=== PATIENT | female | born 1940 | race Caucasian/White ===

== ENCOUNTER 2016-10-12 14:10 | Emergency (ER) | payer MEDICARE, OTHER ==
[2016-10-12] MEDS ORDERED: MAGNESIUM CITRATE 296 ML BOTTLE PO ONE (15:21)
[2016-10-12] MEDS ORDERED: NA PHOS,M-B/NA PHOS,DI-BA 133 ML ENEMA RECTAL STA (15:21)
--- NOTE | 2016-10-12 15:24 | XR ---
EXAMINATION TYPE: XR abdomen complete w decub DATE OF EXAM: 10/12/2016 COMPARISON: NONE HISTORY: Constipation TECHNIQUE: Supine, upright, and left side down lateral decubitus views of the abdomen are obtained. FINDINGS: Bowel gas pattern is nonspecific with no evidence of obstruction and retained fecal debris throughout the colon. Scoliosis, diffuse osteopenia, degenerative change of the spine, postsurgical change involving the hi ps. Lung bases are clear. IMPRESSION: Nonspecific abdomen with retained fecal debris and no obstruction.
[2016-10-12 15:43] LABS: Amorphous Sediment,Urine Rare /hpf; Appearance,Urine Clear (Clear); Bacteria,Urine Rare /hpf; Bilirubin,Urine Negative (Negative); Glucose,Urine (UA) Negative (Negative); Ketones,Urine Negative (Negative); Leukocyte Esterase,Urine Negative (Negative); Nitrite,Urine Negative (Negative); PH, Urine 5.5 (5.0-8.0); Particle Count 445; Protein,Urine Negative (Negative); RBC,Urine 2 /hpf (0-5); Specific Gravity,Urine 1.007 (1.001-1.035); Squamous Epithelial Cell,Urine 1 /hpf (0-4); UA Billing (MACRO vs. MICRO) MICRO; Urobilinogen,Urine <2.0 mg/dL (<2.0); WBC,Urine 1 /hpf (0-5)
--- NOTE | 2016-10-12 16:35 | ED ---
General Adult HPI - General Chief complaint: Abdominal Pain Stated complaint: Poss Bowel Impaction Time Seen by Provider: 10/12/16 14:42 Source: patient, EMS, RN notes reviewed Mode of arrival: EMS Limitations: no limitations - History of Present Illness Initial comments: 76 female presents with a 5 day history of constipation. Patient states her last normal bowel movement was on Sunday. She has had to self disimpact since then with minimal stool output. She denies any nausea or vomiting. Denies abdominal pain. Denies fever. Patient has history of osteoarthritis and takes for 10 mg [place] as daily. - Related Data Home Medications Medication Instructions Recorded Confirmed Lisinopril 40 mg PO DAILY 09/19/14 10/12/16 RABEprazole SODIUM 20 mg PO BID 02/04/15 10/12/16 Aspirin 1,300 mg PO QID PRN 07/12/15 10/12/16 Clindamycin HCl 300 mg PO TID 10/12/16 10/12/16 Loxapine [Loxitane] 10 mg PO HS 10/12/16 10/12/16 Lubiprostone [Amitiza] 24 mcg PO HS 10/12/16 10/12/16 Previous Rx's Medication Instructions Recorded Hydrocodone/Acetaminophen [[place] 1 tab PO Q6H PRN #20 tablet 09/25/14 10-325] Docusate [Colace] 100 mg PO BID #60 capsule 10/12/16 Polyethylene Glycol 3350 [Miralax] 17 gm PO DAILY #1 bottle 10/12/16 Allergies Allergy/AdvReac Type Severity Reaction Status Date / Time sulfamethoxazole Allergy Rash/Hives Verified 10/12/16 14:38 [From Bactrim] trimethoprim [From Bactrim] Allergy Rash/Hives Verified 10/12/16 14:38 prednisone AdvReac Nausea & Verified 10/12/16 14:38 Vomiting & Diarrhea Review of Systems ROS Statement: Those systems with pertinent positive or pertinent negative responses have been documented in the HPI. ROS Other: All systems not noted in ROS Statement are negative. Cardiovascular: Denies: chest pain, palpitations Gastrointestinal: Reports: constipation. Denies: abdominal pain, nausea, vomiting Past Medical History Past Medical History: Hypertension, Osteoarthritis (OA) Additional Past Medical History / Comment(s): Diverticulosis ,chronic back pain , bipolar schizophrenia History of Any Multi-Drug Resistant Organisms: None Reported Past Surgical History: Appendectomy, Cholecystectomy, Ear Surgery, Hernia Repair Additional Past Surgical History / Comment(s): mastiodectomy pt is now deaf and needs bilat hearing aids. Past Anesthesia/Blood Transfusion Reactions: No Reported Reaction Past Psychological History: Bipolar, Schizophrenia Smoking Status: Never smoker Past Alcohol Use History: None Reported Past Drug Use History: None Reported - Past Family History Mother Family Medical History: No Reported History Father Family Medical History: Hypertension, Thyroid Disorder General Exam Limitations: no limitations General appearance: alert, in no apparent distress Head exam: Present: atraumatic, normocephalic Eye exam: Present: normal appearance, PERRL ENT exam: Present: normal exam, mucous membranes moist Neck exam: Present: normal inspection. Absent: full ROM Respiratory exam: Present: normal lung sounds bilaterally. Absent: respiratory distress Cardiovascular Exam: Present: regular rate, normal rhythm GI/Abdominal exam: Present: soft, distended. Absent: tenderness, guarding, rebound, rigid Neurological exam: Present: alert, oriented X3 Psychiatric exam: Present: normal affect, normal mood Skin exam: Present: warm, dry Course Vital Signs 10/12/16 10/12/16 14:15 17:01 Temperature 98.3 F 97.3 F L Pulse Rate 75 108 H Respiratory 16 18 Rate Blood Pressure 180/75 185/76 O2 Sat by Pulse 98 98 Oximetry - Reevaluation(s) Reevaluation #1: 10/12/16 23:28 Patient is reevaluated prior to discharge, she was feeling better, she had a large bowel movement while in the emergency department. Medical Decision Making - Medical Decision Making 76-year-old female presenting with 5 days of constipation. X-ray reveals large amount of stool throughout the colon. Urinalysis is negative for signs of infection. Patient is given an enema and magnesium citrate while in the emergency department. She has a large bowel movement and is feeling much better. Her abdomen is soft nontender. Patient is given a prescription for Colace and MiraLAX. She'll follow-up with her primary care physician. - Lab Data Lab Results 10/12/16 Range/Units 15:30 Urine Color Light Yellow Urine Appearance Clear (Clear) Urine pH 5.5 (5.0-8.0) Ur Specific [place] 1.007 (1.001-1.035) Urine Protein Negative (Negative) Urine Glucose (UA) Negative (Negative) Urine Ketones Negative (Negative) Urine Blood Trace H (Negative) Urine Nitrite Negative (Negative) Urine Bilirubin Negative (Negative) Urine Urobilinogen <2.0 (<2.0) mg/dL Ur Leukocyte Esterase Negative (Negative) Urine RBC 2 (0-5) /hpf Urine WBC 1 (0-5) /hpf Ur Squamous Epith Cells 1 (0-4) /hpf Amorphous Sediment Rare H (None) /hpf Urine Bacteria Rare H (None) /hpf Disposition Clinical Impression: Constipation Disposition: HOME SELF-CARE Condition: Good Instructions: Constipation (ED) Prescriptions: Docusate [Colace] 100 mg PO BID #60 capsule Polyethylene Glycol 3350 [Miralax] 17 gm PO DAILY #1 bottle Referrals: Chloé Santillan DO [Primary Care Provider] - 1-2 days
[2016-10-12 17:03] VITALS: BP 185/76; PULSE 108; RESP 18; TEMP 97.3
[2016-10-12] MEDS ORDERED: LISINOPRIL 10 MG TAB PO STA (17:06)
== END 2016-10-12 17:49 | disposition home or self-care (01) ==
LOC: EC 14:10
DX: K59.00 Constipation, unspecified (principal); M19.90 Unspecified osteoarthritis, unspecified site; I10 Essential (primary) hypertension; F20.9 Schizophrenia, unspecified; Z79.891 Long term (current) use of opiate analgesic; Z87.19 Personal history of other diseases of the digestive system; Z90.49 Acquired absence of other specified parts of digestive tract; Z98.890 Other specified postprocedural states; Z88.2 Allergy status to sulfonamides; Z88.8 Allergy status to other drugs, medicaments and biological substances; Z79.899 Other long term (current) drug therapy
CPT/HCPCS: 74020; 81001; 99284

== ENCOUNTER → 2017-11-28 | Outpatient (CLI) | payer MEDICARE, OTHER ==
--- NOTE | 2017-11-28 17:00 | MR ---
EXAMINATION TYPE: MR shoulder LT wo con DATE OF EXAM: 11/28/2017 COMPARISON: Plain film 04/29/2015 HISTORY: Left shoulder pain, Primary OA TECHNIQUE: Multiplanar, multisequence imaging of the left shoulder is performed without contrast. FINDINGS: Rotator Cuff: Partial thickness tear is present at the rotator cuff, supraspinatus tendon shows abnor mal increased signal and is attenuated, infraspinatus tendon thought to be intact. Acromioclavicular Joint: Hypertrophic changes are present causing some mass effect on the musculotend inous junction of supraspinatus. Fluid signal is present in the subacromial subdeltoid bursa. Glenohumeral Joint: There is marginal spurring present, subchondral geode formation present at the hu meral head and bony glenoid. Joint space loss is present with subchondral sclerosis. Labrum: The glenoid labrum is not well appreciated, there is remodeling of the bony labrum, abnormal signal is present, there may be chronic labral tear. Biceps Tendon: Fluid signal is present along the long head of biceps tendon. Shows a normal position in the bicipital groove. Bone marrow signal: Reactive marrow signal change present within the humeral head and bony labrum. Other: There is a joint effusion. Marked remodeling of the glenohumeral joint, humeral head. There ar e loose bodies present within the joint effusion. IMPRESSION: Significant osteoarthritis is present with additional findings above.
== END | disposition home or self-care (01) ==
LOC: RADMRIMAIN 14:33
PROVIDERS: ATTEND Family Medicine
DX: M19.012 Primary osteoarthritis, left shoulder (principal); M75.112 Incomplete rotator cuff tear or rupture of left shoulder, not specified as traumatic

== ENCOUNTER 2018-02-18 12:24 | Inpatient (IN) | payer MEDICARE, OTHER ==
[2018-02-18] MEDS ORDERED: SODIUM CHLORIDE 0.9% 1,000 ML IV STA (12:53)
--- NOTE | 2018-02-18 12:58 | ED ---
General Adult HPI - General Stated complaint: nausea, vomiting Time Seen by Provider: 02/18/18 12:25 Source: RN notes reviewed - History of Present Illness Initial comments: This is a 77-year-old female who comes in complaining of abdominal pain since Sunday. Patient states she's vomited intermittently over the weekend has had diarrhea as well intermittently over the weekend. Patient states the pain is centrally located. Patient denies any chest pain difficulty breathing first breath. Patient states she has had her gallbladder out and appendix out in the past. Patient states she is chronically on morphine. Patient states she just had her morphine felt today. Patient states her caregivers taken the morphine out of the pill bottle that sweater is nontender currently. Patient denies any suicidal homicidal ideations. Patient denies any recent fever chills or cough. Patient denies any lightheadedness dizziness or nursing blood cell. - Related Data Home Medications Medication Instructions Recorded Confirmed Lisinopril 40 mg PO DAILY 09/19/14 02/18/18 RABEprazole SODIUM 20 mg PO BID 02/04/15 02/18/18 Gabapentin [Neurontin] 300 mg PO QID 02/18/18 02/18/18 Morphine Sulfate ER [Ms Contin] 30 mg PO Q12H 02/18/18 02/18/18 Allergies Allergy/AdvReac Type Severity Reaction Status Date / Time sulfamethoxazole Allergy Rash/Hives Verified 02/18/18 13:14 [From Bactrim] trimethoprim [From Bactrim] Allergy Rash/Hives Verified 02/18/18 13:14 prednisone AdvReac Nausea & Verified 02/18/18 13:14 Vomiting & Diarrhea Review of Systems ROS Statement: Those systems with pertinent positive or pertinent negative responses have been documented in the HPI. ROS Other: All systems not noted in ROS Statement are negative. Past Medical History Past Medical History: Hypertension, Osteoarthritis (OA) Additional Past Medical History / Comment(s): Diverticulosis ,chronic back pain , bipolar schizophrenia History of Any Multi-Drug Resistant Organisms: None Reported Past Surgical History: Appendectomy, Cholecystectomy, Ear Surgery, Hernia Repair Additional Past Surgical History / Comment(s): mastiodectomy pt is now deaf and needs bilat hearing aids. Past Anesthesia/Blood Transfusion Reactions: No Reported Reaction Past Psychological History: Bipolar, Schizophrenia Smoking Status: Never smoker Past Alcohol Use History: None Reported Past Drug Use History: None Reported - Past Family History Mother Family Medical History: No Reported History Father Family Medical History: Hypertension, Thyroid Disorder General Exam - General Exam Comments Initial Comments: GENERAL: Patient is well-developed and well-nourished. Patient is nontoxic and well- hydrated and is in mild distress. ENT: Neck is soft and supple. No significant lymphadenopathy is noted. Oropharynx is clear. Moist mucous membranes. Neck has full range of motion without eliciting any pain. EYES: The sclera were anicteric and conjunctiva were pink and moist. Extraocular movements were intact and pupils were equal round and reactive to light. Eyelids were unremarkable. PULMONARY: Unlabored respirations. Good breath sounds bilaterally. No audible rales rhonchi or wheezing was noted. CARDIOVASCULAR: There is a regular rate and rhythm without any murmurs gallops or rubs. ABDOMEN: Diffusely tender mildly distended but no point tenderness or rebound tenderness. No palpable organomegaly was noted. There is no palpable pulsatile mass. SKIN: Skin is clear with no lesions or rashes and otherwise unremarkable. NEUROLOGIC: Patient is alert and oriented x3. Cranial nerves II through XII are grossly intact. Motor and sensory are also intact. Normal speech, volume and content. Symmetrical smile. MUSCULOSKELETAL: Normal extremities with adequate strength and full range of motion. No lower extremity swelling or edema. No calf tenderness. LYMPHATICS: No significant lymphadenopathy is noted PSYCHIATRIC: Normal psychiatric evaluation. Course Vital Signs 02/18/18 02/18/18 13:11 15:26 Temperature 101.1 F H 99.3 F Pulse Rate 98 88 Respiratory 18 18 Rate Blood Pressure 191/76 O2 Sat by Pulse 97 Oximetry Medical Decision Making - Medical Decision Making CT of the abdomen denies no acute abnormality. Patient still complaining of abdominal pain and nausea. Patient is very anxious. Patient did have a fever on arrival. I spoke with Dr. Sparks he agreed to admit the patient admitted the patient wrote admitting orders. - Lab Data Result diagrams: 02/18/18 13:25 02/18/18 13:25 Lab Results 02/18/18 02/18/18 02/18/18 Range/Units 13:25 13:25 13:25 WBC 11.2 H (3.8-10.6) k/uL RBC 4.60 (3.80-5.40) m/uL Hgb 12.6 (11.4-16.0) gm/dL Hct 38.6 (34.0-46.0) % MCV 83.8 (80.0-100.0) fL MCH 27.4 (25.0-35.0) pg MCHC 32.7 (31.0-37.0) g/dL RDW 14.8 (11.5-15.5) % Plt Count 428 (150-450) k/uL Neutrophils % 82 % Lymphocytes % 11 % Monocytes % 5 % Eosinophils % 0 % Basophils % 0 % Neutrophils # 9.2 H (1.3-7.7) k/uL Lymphocytes # 1.3 (1.0-4.8) k/uL Monocytes # 0.5 (0-1.0) k/uL Eosinophils # 0.0 (0-0.7) k/uL Basophils # 0.0 (0-0.2) k/uL Sodium 126 L (137-145) mmol/L Potassium 4.4 (3.5-5.1) mmol/L Chloride 93 L (98-107) mmol/L Carbon Dioxide 22 (22-30) mmol/L Anion Gap 11 mmol/L BUN 5 L (7-17) mg/dL Creatinine 0.58 (0.52-1.04) mg/dL Est GFR (CKD-EPI)AfAm >90 (>60 ml/min/1.73 sqM) Est GFR (CKD-EPI)NonAf 88 (>60 ml/min/1.73 sqM) Glucose 119 H (74-99) mg/dL Plasma Lactic Acid El 1.2 (0.7-2.0) mmol/L Calcium 9.7 (8.4-10.2) mg/dL Total Bilirubin 0.5 (0.2-1.3) mg/dL AST 24 (14-36) U/L ALT 33 (9-52) U/L Alkaline Phosphatase 108 (38-126) U/L Total Protein 6.7 (6.3-8.2) g/dL Albumin 4.0 (3.5-5.0) g/dL Amylase 33 (30-110) U/L Lipase 131 (23-300) U/L Urine Color Urine Appearance (Clear) Urine pH (5.0-8.0) Ur Specific [place] (1.001-1.035) Urine Protein (Negative) Urine Glucose (UA) (Negative) Urine Ketones (Negative) Urine Blood (Negative) Urine Nitrite (Negative) Urine Bilirubin (Negative) Urine Urobilinogen (<2.0) mg/dL Ur Leukocyte Esterase (Negative) Urine RBC (0-5) /hpf 02/18/18 Range/Units 14:00 WBC (3.8-10.6) k/uL RBC (3.80-5.40) m/uL Hgb (11.4-16.0) gm/dL Hct (34.0-46.0) % MCV (80.0-100.0) fL MCH (25.0-35.0) pg MCHC (31.0-37.0) g/dL RDW (11.5-15.5) % Plt Count (150-450) k/uL Neutrophils % % Lymphocytes % % Monocytes % % Eosinophils % % Basophils % % Neutrophils # (1.3-7.7) k/uL Lymphocytes # (1.0-4.8) k/uL Monocytes # (0-1.0) k/uL Eosinophils # (0-0.7) k/uL Basophils # (0-0.2) k/uL Sodium (137-145) mmol/L Potassium (3.5-5.1) mmol/L Chloride (98-107) mmol/L Carbon Dioxide (22-30) mmol/L Anion Gap mmol/L BUN (7-17) mg/dL Creatinine (0.52-1.04) mg/dL Est GFR (CKD-EPI)AfAm (>60 ml/min/1.73 sqM) Est GFR (CKD-EPI)NonAf (>60 ml/min/1.73 sqM) Glucose (74-99) mg/dL Plasma Lactic Acid El (0.7-2.0) mmol/L Calcium (8.4-10.2) mg/dL Total Bilirubin (0.2-1.3) mg/dL AST (14-36) U/L ALT (9-52) U/L Alkaline Phosphatase (38-126) U/L Total Protein (6.3-8.2) g/dL Albumin (3.5-5.0) g/dL Amylase (30-110) U/L Lipase (23-300) U/L Urine Color Colorless Urine Appearance Clear (Clear) Urine pH 6.5 (5.0-8.0) Ur Specific [place] 1.002 (1.001-1.035) Urine Protein Negative (Negative) Urine Glucose (UA) Negative (Negative) Urine Ketones Trace H (Negative) Urine Blood Trace H (Negative) Urine Nitrite Negative (Negative) Urine Bilirubin Negative (Negative) Urine Urobilinogen <2.0 (<2.0) mg/dL Ur Leukocyte Esterase Negative (Negative) Urine RBC 1 (0-5) /hpf Disposition Clinical Impression: Gastroenteritis, Hyponatremia Disposition: ADMITTED IP TO THIS HOSP Referrals: Chloé Santillan DO [Primary Care Provider] - 1-2 days Time of Disposition: 16:15
[2018-02-18] MEDS ORDERED: ACETAMINOPHEN IV (For NPO) 1,000 MG in EMPTY BAG 1 BAG IVPB ONE (13:16)
[2018-02-18] MEDS ORDERED: IBUPROFEN IV 600 MG in SODIUM CHLORIDE 0.9% 250 ML IV STA (13:16)
[2018-02-18] MEDS ORDERED: ONDANSETRON 4 MG/2 ML VIAL IVP STA (13:16)
[2018-02-18 13:59] LABS: Basophils % (A) 0 %; Eosinophils % (A) 0 %; HCT 38.6 % (34.0-46.0); HGB 12.6 gm/dL (11.4-16.0); Lymphocytes # (A) 1.3 k/uL (1.0-4.8); Lymphocytes % (A) 11 %; MCH 27.4 pg (25.0-35.0); MCHC 32.7 g/dL (31.0-37.0); MCV 83.8 fL (80.0-100.0); Mean Platelet Volume 6.2; Monocytes # (A) 0.5 k/uL (0-1.0); Monocytes % (A) 5 %; Neutrophils # (A) 9.2 k/uL (1.3-7.7); Neutrophils % (A) 82 %; Platelet Count 428 k/uL (150-450); RDW 14.8 % (11.5-15.5); WBC 11.2 k/uL (3.8-10.6)
[2018-02-18 14:08] LABS: ALT 33 U/L (9-52); AST 24 U/L (14-36); Alkaline Phosphatase 108 U/L (38-126); Amylase 33 U/L (30-110); Anion Gap 11 mmol/L; Blood Urea Nitrogen 5 mg/dL (7-17); Calcium 9.7 mg/dL (8.4-10.2); Carbon Dioxide 22 mmol/L (22-30); Chloride 93 mmol/L (98-107); Glucose 119 mg/dL (74-99); Lipase 131 U/L (23-300); Potassium 4.4 mmol/L (3.5-5.1); Sodium 126 mmol/L (137-145); Total Bilirubin 0.5 mg/dL (0.2-1.3); Total Protein 6.7 g/dL (6.3-8.2)
[2018-02-18 14:31] LABS: Appearance,Urine Clear (Clear); Bilirubin,Urine Negative (Negative); Blood,Urine Trace (Negative); Color,Urine Colorless; Glucose,Urine (UA) Negative (Negative); Ketones,Urine Trace (Negative); Leukocyte Esterase,Urine Negative (Negative); Nitrite,Urine Negative (Negative); PH, Urine 6.5 (5.0-8.0); Protein,Urine Negative (Negative); RBC,Urine 1 /hpf (0-5); Specific Gravity,Urine 1.002 (1.001-1.035); Urobilinogen,Urine <2.0 mg/dL (<2.0)
--- NOTE | 2018-02-18 15:27 | CT ---
EXAMINATION TYPE: CT abdomen pelvis wo con DATE OF EXAM: 02/18/2018 COMPARISON: 09/18/2014 HISTORY: Pain Examination of the solid and hollow viscera is limited given the lack of contrast. FINDINGS: LUNG BASES: No evidence for nodule. No evidence for infiltrate. LIVER/GB: The gallbladder is unremarkable. No space-occupying hepatic lesion. PANCREAS: No pancreatic mass identified. No inflammatory process seen. SPLEEN: No evidence for splenomegaly. No intrasplenic lesions seen. ADRENALS: No adrenal nodules identified. No evidence for thickening. KIDNEYS: No evidence for renal mass. No nephrolithiasis. No hydronephrosis. BOWEL: Fixed hiatal hernia is redemonstrated. Appendix has a normal appearance. No evidence of bowel obstruction. No inflammatory process. Lymph nodes: No evidence for adenopathy greater than 1 cm. Abdominal aorta: Atheromatous changes seen. No evidence for aneurysm. Genital organs: No significant abnormality. Other: Fat-containing umbilical hernia. Bilateral hip prostheses with streak artifact within the pelv is. Severe degenerative change lumbar spine. IMPRESSION: 1. No acute process identified to account for the patient's symptoms.
[2018-02-18] MEDS ORDERED: SODIUM CHLORIDE 0.9% 1,000 ML IV ONE (16:15)
[2018-02-18] MEDS ORDERED: ONDANSETRON 4 MG/2 ML VIAL IVP PRN (16:16)
[2018-02-18] MEDS ORDERED: LORazepam 2 MG/ML INJ IV STA (16:16)
[2018-02-18] MEDS ORDERED: ACETAMINOPHEN TAB 325 MG TAB PO PRN (18:42)
[2018-02-18] MEDS ORDERED: MORPHINE SULFATE ER 30 MG TABLET PO SCH (19:00)
[2018-02-18] MEDS: GABAPENTIN 300 MG CAP PO SCH (20:30)
[2018-02-18] MEDS: PANTOPRAZOLE 40 MG TABLET PO SCH (20:30)
--- NOTE | 2018-02-18 21:39 | HP ---
HISTORY AND PHYSICAL CHIEF COMPLAINT: Nausea, vomiting, abdominal pain. HISTORY OF PRESENT ILLNESS: This 77-year-old woman with a past medical history of hypertension, DJD, history of diverticulosis, was complaining of significant abdominal pain since Sunday. The patient also has nausea and vomiting also. The patient had some hyponatremia and the patient admitted for further evaluation and treatment. There is no history of fever, rigors or chills. No history of headache, loss of consciousness, seizures. The patient follows with Dr. Santillan in the outpatient setting. PAST MEDICAL HISTORY: Hypertension, DJD, history of diverticulosis, appendectomy, cholecystectomy. MEDICATIONS ARE: 1. Morphine sulfate 30 mg p.o. b.i.d. 2. Neurontin 300 mg q.i.d. 4. Lisinopril 40 mg daily. ALLERGIES: BACTRIM. PREDNISONE. FAMILY HISTORY: No history of heart disease or strokes in the family. SOCIAL HISTORY: No history of smoking. No alcohol intake. REVIEW OF SYSTEMS: ENT: Diminished vision. Diminished hearing. CARDIOVASCULAR: No angina or palpitations. RESPIRATORY: No cough, hemoptysis. GI as mentioned earlier. : No dysuria. NERVOUS SYSTEM: No numbness or weakness. ALLERGY/IMMUNOLOGY: No asthma or hayfever. MUSCULOSKELETAL: As mentioned earlier. HEMATOLOGY/ONCOLOGY: No history of anemia. ENDOCRINE: No history of diabetes or hypothyroidism. CONSTITUTIONAL: As mentioned earlier. Dermatology: Negative. Rheumatology: Negative. Psychiatry: As mentioned earlier. PHYSICAL EXAMINATION: Alert and oriented x3. The pulse is 82, blood pressure 140/88, respiration 18, temperature 98.4, pulse ox 93% on room air. HEENT: Oral mucosa moist. NECK is no jugular venous distention. No carotid bruit. No lymph node enlargement. CARDIOVASCULAR: S1, S2 muffled. Respirations: Breath sounds diminished in the bases. A few scattered rhonchi. No crackles. ABDOMEN: Soft nontender, obese, nontender. No mass palpable. No guarding. No rigidity. Legs no edema, no swelling. NERVOUS SYSTEM: Higher functions as mentioned earlier. Moves all four extremities. No focal deficits. Lymphatics: No lymph nodes palpable in the neck, axillae or groin. SKIN: No ulcer, rash or bleeding. LABS: WBC 11.8, Hemoglobin 12.6, sodium 126. UA unremarkable. ASSESSMENT: 1. Intractable nausea and vomiting for possible acute gastritis. 2. Hyponatremia. 3. History of degenerative joint disease. 4. Hypertension. 5. Chronic pain syndrome. 6. Bipolar schizophrenia. 7. History of cholecystectomy. RECOMMENDATIONS AND DISCUSSION: Recommend to continue current medications, management and symptomatic treatment. Otherwise, at this time, I would resume the home medications. We will cut down the dose of morphine. Guarded prognosis. Further recommendations to follow. SONAL / NELYN: [id number] / MTDD
[2018-02-19] MEDS: GABAPENTIN 300 MG CAP PO SCH ×2 (08:00→12:15)
[2018-02-19] MEDS: PANTOPRAZOLE 40 MG TABLET PO SCH (08:00)
[2018-02-19] MEDS ORDERED: MORPHINE SULFATE ER 30 MG TABLET PO SCH (09:00)
[2018-02-19] MEDS ORDERED: LISINOPRIL 20 MG TAB PO SCH (09:00)
[2018-02-19 10:32] LABS: Basophils # (A) 0.1 k/uL (0-0.2); Basophils % (A) 1 %; Eosinophils # (A) 0.2 k/uL (0-0.7); Eosinophils % (A) 2 %; HCT 36.4 % (34.0-46.0); HGB 11.3 gm/dL (11.4-16.0); Lymphocytes # (A) 1.5 k/uL (1.0-4.8); Lymphocytes % (A) 18 %; MCH 26.9 pg (25.0-35.0); MCV 86.8 fL (80.0-100.0); Mean Platelet Volume 6.2; Monocytes # (A) 0.7 k/uL (0-1.0); Monocytes % (A) 8 %; Neutrophils # (A) 5.7 k/uL (1.3-7.7); Neutrophils % (A) 70 %; Platelet Count 366 k/uL (150-450); RBC 4.19 m/uL (3.80-5.40); WBC 8.1 k/uL (3.8-10.6)
[2018-02-19 10:53] LABS: ALT 22 U/L (9-52); AST 25 U/L (14-36); Albumin 3.5 g/dL (3.5-5.0); Alkaline Phosphatase 80 U/L (38-126); Anion Gap 11 mmol/L; Blood Urea Nitrogen 6 mg/dL (7-17); Calcium 9.1 mg/dL (8.4-10.2); Carbon Dioxide 21 mmol/L (22-30); Chloride 103 mmol/L (98-107); Glucose 124 mg/dL (74-99); Potassium 3.8 mmol/L (3.5-5.1); Sodium 135 mmol/L (137-145); Total Bilirubin 0.3 mg/dL (0.2-1.3); Total Protein 6.1 g/dL (6.3-8.2)
[2018-02-19 15:59] VITALS: BP 143/64; PULSE 78; RESP 16; TEMP 98.1
--- NOTE | 2018-02-20 07:17 | DS ---
DISCHARGE SUMMARY DATE OF SERVICE: 02/19/2018 FINAL DIAGNOSES: 1. Intractable nausea, vomiting, possible acute gastritis. 2. Hyponatremia, hypovolemic, improved. 3. History of degenerative joint disease. 4. Hypertension. 5. Chronic pain syndrome. 6. Bipolar, schizophrenia. 7. History of cholecystectomy. DISCHARGE DISPOSITION: The patient discharged in a stable condition with guarded prognosis. HISTORY OF PRESENT ILLNESS: This is a 77-year-old woman with a past medical history of multiple medical problems admitted with nausea, vomiting and features of gastritis, treated symptomatically, improved significantly. Sodium improved from 126 to 135. Patient is keen on going home. The patient will be discharged in a stable condition and guarded prognosis. Diet is cardiac diet. Activity limited until followup. Follow up with Dr. Santillan in 2 to 3 days with CBC, BMP. The medications are: 1. Neurontin 300 mg p.o. q.i.d. 2. Lisinopril 40 mg daily. 3. MS Contin 30 mg p.o. b.i.d. 4. Protonix 40 mg p.o. b.i.d. Once again, the patient will be discharged in a stable condition with guarded prognosis. MMODL / IJN: [id number] /
== END 2018-02-19 15:41 | disposition home or self-care (01) | DRG 392 ==
LOC: EC 12:24 → 4MS4W 16:15
PROVIDERS: ADMIT Hospitalist; ATTEND Hospitalist
DX: K52.9 Noninfective gastroenteritis and colitis, unspecified (principal); E87.1 Hypo-osmolality and hyponatremia; I10 Essential (primary) hypertension; M19.90 Unspecified osteoarthritis, unspecified site; F25.0 Schizoaffective disorder, bipolar type; G89.4 Chronic pain syndrome; Z90.49 Acquired absence of other specified parts of digestive tract; Z79.899 Other long term (current) drug therapy; Z88.2 Allergy status to sulfonamides; Z88.8 Allergy status to other drugs, medicaments and biological substances; Z82.49 Family history of ischemic heart disease and other diseases of the circulatory system
CPT/HCPCS: 36415; 51702; 74176; 80053; 81001; 82150; 83605; 83690; 85025; 87040; 96361; 96365; 96366; 96367; 96375; 99285

== ENCOUNTER 2018-02-25 11:34 | Inpatient (IN) | payer MEDICARE, OTHER ==
[2018-02-25] MEDS ORDERED: IBUPROFEN IV 800 MG in SODIUM CHLORIDE 0.9% 250 ML IV ONE (11:46)
[2018-02-25] MEDS ORDERED: SODIUM CHLORIDE 0.9% 500 ML 500 ML IV STA (11:46)
[2018-02-25] MEDS ORDERED: SODIUM CHLORIDE 0.9% 1,000 ML IV STA ×2 (11:46)
[2018-02-25] MEDS ORDERED: ONDANSETRON 4 MG/2 ML VIAL IVP STA (11:46)
[2018-02-25] MEDS ORDERED: ACETAMINOPHEN IV (For NPO) 1,000 MG in EMPTY BAG 1 BAG IVPB STA (11:46)
[2018-02-25 12:22] LABS: Basophils # (A) 0.1 k/uL (0-0.2); Basophils % (A) 0 %; Eosinophils # (A) 0.2 k/uL (0-0.7); Eosinophils % (A) 1 %; HCT 36.6 % (34.0-46.0); HGB 11.9 gm/dL (11.4-16.0); Lymphocytes # (A) 0.5 k/uL (1.0-4.8); Lymphocytes % (A) 2 %; MCH 27.7 pg (25.0-35.0); MCHC 32.4 g/dL (31.0-37.0); MCV 85.6 fL (80.0-100.0); Mean Platelet Volume 6.5; Monocytes # (A) 1.3 k/uL (0-1.0); Monocytes % (A) 5 %; Neutrophils # (A) 24.2 k/uL (1.3-7.7); Neutrophils % (A) 91 %; Platelet Count 380 k/uL (150-450); RBC 4.28 m/uL (3.80-5.40); RDW 14.8 % (11.5-15.5); WBC 26.5 k/uL (3.8-10.6)
[2018-02-25 12:32] LABS: INR 1.1 (<1.2); Partial Thromboplastin Time 27.5 sec (22.0-30.0); Prothrombin Time 10.4 sec (9.0-12.0)
[2018-02-25 12:37] LABS: ALT 27 U/L (9-52); AST 33 U/L (14-36); Albumin 3.5 g/dL (3.5-5.0); Alkaline Phosphatase 103 U/L (38-126); Anion Gap 13 mmol/L; Blood Urea Nitrogen 8 mg/dL (7-17); Calcium 8.7 mg/dL (8.4-10.2); Carbon Dioxide 22 mmol/L (22-30); Chloride 94 mmol/L (98-107); Glucose 158 mg/dL (74-99); Magnesium 1.4 mg/dL (1.6-2.3); Phosphorus 3.3 mg/dL (2.5-4.5); Potassium 3.6 mmol/L (3.5-5.1); Sodium 129 mmol/L (137-145); Total Bilirubin 1.1 mg/dL (0.2-1.3); Total Protein 6.2 g/dL (6.3-8.2)
[2018-02-25 12:39] LABS: Creatine Kinase 27 U/L (30-135)
--- NOTE | 2018-02-25 12:45 | ED ---
Nausea/Vomiting/Diarrhea HPI - General Chief complaint: Nausea/Vomiting/Diarrhea Stated complaint: Nausea, Vomiting Time Seen by Provider: 02/25/18 11:44 Source: patient, EMS, RN notes reviewed, old records reviewed Mode of arrival: EMS Limitations: no limitations - History of Present Illness Initial comments: This is a 77-year-old female the ER for evaluation of not feeling well, weak, increased nausea vomiting with diarrhea. Patient states she had recent hospital admission for gastroenteritis, patient's physical time her C. diff was negative, patient's brought in by EMS today for recurrent symptoms patient does feel like she occasionally has been getting chills, occasionally sweaty. No chest pain or shortness of breath MD complaint: nausea, vomiting, diarrhea -: days(s) Description of Vomiting: food contents Description of Diarrhea: water Associated Abdominal Pain: Yes Location: diffuse Radiation: none Severity: mild Severity scale (1-10): 2 Quality: cramping Consistency: constant Improves with: none Worsens with: eating Context: sick contacts Associated Symptoms: myalgias, loss of appetite, malaise, nausea/vomiting, weakness - Related Data Home Medications Medication Instructions Recorded Confirmed Lisinopril 40 mg PO DAILY 09/19/14 02/25/18 Gabapentin [Neurontin] 300 mg PO QID 02/18/18 02/25/18 Morphine Sulfate ER [Ms Contin] 30 mg PO Q12H 02/18/18 02/25/18 Previous Rx's Medication Instructions Recorded Pantoprazole Sodium [Protonix] 40 mg PO BID #60 tablet. 02/19/18 Allergies Allergy/AdvReac Type Severity Reaction Status Date / Time sulfamethoxazole Allergy Rash/Hives Verified 02/25/18 12:05 [From Bactrim] trimethoprim [From Bactrim] Allergy Rash/Hives Verified 02/25/18 12:05 prednisone AdvReac Nausea & Verified 02/25/18 12:05 Vomiting & Diarrhea Review of Systems ROS Statement: Those systems with pertinent positive or pertinent negative responses have been documented in the HPI. ROS Other: All systems not noted in ROS Statement are negative. Past Medical History Past Medical History: Hypertension, Osteoarthritis (OA) Additional Past Medical History / Comment(s): Diverticulosis ,chronic back pain , bipolar schizophrenia History of Any Multi-Drug Resistant Organisms: None Reported Past Surgical History: Appendectomy, Cholecystectomy, Ear Surgery, Hernia Repair Additional Past Surgical History / Comment(s): mastiodectomy pt is now deaf and needs bilat hearing aids. Past Anesthesia/Blood Transfusion Reactions: No Reported Reaction Past Psychological History: Bipolar, Schizophrenia Smoking Status: Never smoker Past Alcohol Use History: None Reported Past Drug Use History: None Reported - Past Family History Mother Family Medical History: No Reported History Father Family Medical History: Hypertension, Thyroid Disorder General Exam Limitations: no limitations General appearance: alert, in no apparent distress Head exam: Present: atraumatic, normocephalic, normal inspection Eye exam: Present: normal appearance, PERRL, EOMI. Absent: scleral icterus, conjunctival injection, periorbital swelling ENT exam: Present: normal exam, mucous membranes dry Neck exam: Present: normal inspection. Absent: tenderness, meningismus, lymphadenopathy Respiratory exam: Present: normal lung sounds bilaterally. Absent: respiratory distress, wheezes, rales, rhonchi, stridor Cardiovascular Exam: Present: normal rhythm, tachycardia, normal heart sounds. Absent: systolic murmur, diastolic murmur, rubs, gallop, clicks GI/Abdominal exam: Present: soft, normal bowel sounds. Absent: distended, tenderness, guarding, rebound, rigid Extremities exam: Present: normal inspection, full ROM, normal capillary refill. Absent: tenderness, pedal edema, joint swelling, calf tenderness Back exam: Present: normal inspection Neurological exam: Present: alert, oriented X3, CN II-XII intact Psychiatric exam: Present: normal affect, normal mood Skin exam: Present: warm, dry, intact, normal color. Absent: rash Course Vital Signs 02/25/18 02/25/18 11:39 13:46 Temperature 100.0 F H 98.6 F Pulse Rate 109 H 108 H Respiratory 18 18 Rate Blood Pressure 178/79 164/75 O2 Sat by Pulse 94 L 96 Oximetry - Reevaluation(s) Reevaluation #1: 02/25/18 14:40 Medical record and prior hospitalization or reviewed, C. diff negative Reevaluation #2: 02/25/18 14:40 Patient with mild improvement with symptomatic therapy Medical Decision Making - Medical Decision Making 28 female the ER for evaluation, patient resents today for recurrent nausea vomiting diarrhea, By positive urinary tract infection, fever and significant leukocytosis, patient placed on broad-spectrum antibiotics will be admitted for current cardio pulmonary bladder and hemodynamic monitoring - Lab Data Result diagrams: 02/25/18 12:00 02/25/18 12:00 Lab Results 02/25/18 02/25/18 02/25/18 Range/Units 12:00 12:00 12:00 WBC 26.5 H (3.8-10.6) k/uL RBC 4.28 (3.80-5.40) m/uL Hgb 11.9 (11.4-16.0) gm/dL Hct 36.6 (34.0-46.0) % MCV 85.6 (80.0-100.0) fL MCH 27.7 (25.0-35.0) pg MCHC 32.4 (31.0-37.0) g/dL RDW 14.8 (11.5-15.5) % Plt Count 380 (150-450) k/uL Neutrophils % 91 % Lymphocytes % 2 % Monocytes % 5 % Eosinophils % 1 % Basophils % 0 % Neutrophils # 24.2 H (1.3-7.7) k/uL Lymphocytes # 0.5 L (1.0-4.8) k/uL Monocytes # 1.3 H (0-1.0) k/uL Eosinophils # 0.2 (0-0.7) k/uL Basophils # 0.1 (0-0.2) k/uL PT (9.0-12.0) sec INR (<1.2) APTT (22.0-30.0) sec Sodium 129 L (137-145) mmol/L Potassium 3.6 (3.5-5.1) mmol/L Chloride 94 L (98-107) mmol/L Carbon Dioxide 22 (22-30) mmol/L Anion Gap 13 mmol/L BUN 8 (7-17) mg/dL Creatinine 0.63 (0.52-1.04) mg/dL Est GFR (CKD-EPI)AfAm >90 (>60 ml/min/1.73 sqM) Est GFR (CKD-EPI)NonAf 86 (>60 ml/min/1.73 sqM) Glucose 158 H (74-99) mg/dL Plasma Lactic Acid El (0.7-2.0) mmol/L Calcium 8.7 (8.4-10.2) mg/dL Phosphorus 3.3 (2.5-4.5) mg/dL Magnesium 1.4 L (1.6-2.3) mg/dL Total Bilirubin 1.1 (0.2-1.3) mg/dL AST 33 (14-36) U/L ALT 27 (9-52) U/L Alkaline Phosphatase 103 (38-126) U/L Total Creatine Kinase 27 L (30-135) U/L CK-MB (CK-2) 1.0 (0.0-2.4) ng/mL CK-MB (CK-2) Rel Index 3.7 Troponin I <0.012 (0.000-0.034) ng/mL Total Protein 6.2 L (6.3-8.2) g/dL Albumin 3.5 (3.5-5.0) g/dL Urine Color Urine Appearance (Clear) Urine pH (5.0-8.0) Ur Specific [place] (1.001-1.035) Urine Protein (Negative) Urine Glucose (UA) (Negative) Urine Ketones (Negative) Urine Blood (Negative) Urine Nitrite (Negative) Urine Bilirubin (Negative) Urine Urobilinogen (<2.0) mg/dL Ur Leukocyte Esterase (Negative) Urine RBC (0-5) /hpf Urine WBC (0-5) /hpf Urine WBC Clumps (None) /hpf Ur Squamous Epith Cells (0-4) /hpf Urine Bacteria (None) /hpf Urine Mucus (None) /hpf 02/25/18 02/25/18 02/25/18 Range/Units 12:00 12:00 12:00 WBC (3.8-10.6) k/uL RBC (3.80-5.40) m/uL Hgb (11.4-16.0) gm/dL Hct (34.0-46.0) % MCV (80.0-100.0) fL MCH (25.0-35.0) pg MCHC (31.0-37.0) g/dL RDW (11.5-15.5) % Plt Count (150-450) k/uL Neutrophils % % Lymphocytes % % Monocytes % % Eosinophils % % Basophils % % Neutrophils # (1.3-7.7) k/uL Lymphocytes # (1.0-4.8) k/uL Monocytes # (0-1.0) k/uL Eosinophils # (0-0.7) k/uL Basophils # (0-0.2) k/uL PT 10.4 (9.0-12.0) sec INR 1.1 (<1.2) APTT 27.5 (22.0-30.0) sec Sodium (137-145) mmol/L Potassium (3.5-5.1) mmol/L Chloride (98-107) mmol/L Carbon Dioxide (22-30) mmol/L Anion Gap mmol/L BUN (7-17) mg/dL Creatinine (0.52-1.04) mg/dL Est GFR (CKD-EPI)AfAm (>60 ml/min/1.73 sqM) Est GFR (CKD-EPI)NonAf (>60 ml/min/1.73 sqM) Glucose (74-99) mg/dL Plasma Lactic Acid El 2.0 (0.7-2.0) mmol/L Calcium (8.4-10.2) mg/dL Phosphorus (2.5-4.5) mg/dL Magnesium (1.6-2.3) mg/dL Total Bilirubin (0.2-1.3) mg/dL AST (14-36) U/L ALT (9-52) U/L Alkaline Phosphatase (38-126) U/L Total Creatine Kinase (30-135) U/L CK-MB (CK-2) (0.0-2.4) ng/mL CK-MB (CK-2) Rel Index Troponin I (0.000-0.034) ng/mL Total Protein (6.3-8.2) g/dL Albumin (3.5-5.0) g/dL Urine Color Yellow Urine Appearance Cloudy H (Clear) Urine pH 6.0 (5.0-8.0) Ur Specific [place] 1.010 (1.001-1.035) Urine Protein 1+ H (Negative) Urine Glucose (UA) Negative (Negative) Urine Ketones 1+ H (Negative) Urine Blood Small H (Negative) Urine Nitrite Negative (Negative) Urine Bilirubin Negative (Negative) Urine Urobilinogen 3.0 (<2.0) mg/dL Ur Leukocyte Esterase Large H (Negative) Urine RBC 14 H (0-5) /hpf Urine WBC >182 H (0-5) /hpf Urine WBC Clumps Few H (None) /hpf Ur Squamous Epith Cells 3 (0-4) /hpf Urine Bacteria Moderate H (None) /hpf Urine Mucus Rare H (None) /hpf - EKG Data -: EKG Interpreted by Me (EKG shows sinus rhythm rate 100, WI 160, QRS 74, QTc 451) - Radiology Data Radiology results: report reviewed (Chest x-ray showing mild CHF), image reviewed Disposition Clinical Impression: Gastroenteritis, Dehydration, UTI (urinary tract infection), Sepsis Disposition: ADMITTED IP TO THIS HOSP Condition: Fair Is patient prescribed a controlled substance at d/c from ED?: No
--- NOTE | 2018-02-25 12:48 | XR ---
EXAMINATION TYPE: XR chest 2V DATE OF EXAM: 02/25/2018 COMPARISON: 09/23/2014 HISTORY: 77-year-old female with weakness TECHNIQUE: AP and lateral views FINDINGS: Heart appears moderately enlarged. Diffuse interstitial densities. Lung bases are underpenetrated and not well assessed. There may be a small effusion on one side based on the lateral view. Degenerative changes at both shoulders. IMPRESSION: Increased, now moderate cardiomegaly with increasing interstitial changes. Possible small effusion on one side. Lung bases are underpenetrated and not well assessed. Correlate for possible mild to moder ate CHF as an etiology.
[2018-02-25 12:49] LABS: Appearance,Urine Cloudy (Clear); Bacteria,Urine Moderate /hpf; Bilirubin,Urine Negative (Negative); Blood,Urine Small (Negative); Color,Urine Yellow; Glucose,Urine (UA) Negative (Negative); Ketones,Urine 1+ (Negative); Leukocyte Esterase,Urine Large (Negative); Mucus,Urine Rare /hpf; Nitrite,Urine Negative (Negative); Protein,Urine 1+ (Negative); RBC,Urine 14 /hpf (0-5); Squamous Epithelial Cell,Urine 3 /hpf (0-4); WBC,Urine >182 /hpf (0-5)
[2018-02-25 12:52] LABS: Troponin I <0.012 ng/mL (0.000-0.034)
[2018-02-25] MEDS ORDERED: cefTRIAXone 2,000 MG in SODIUM CHLORIDE 0.9% 100 ML IVPB STA (14:04)
[2018-02-25] MEDS ORDERED: MORPHINE SULFATE 4 MG/ML SYRINGE IVP STA (14:59)
[2018-02-25] MEDS: SODIUM CHLORIDE 0.9% 500 ML 500 ML IV SCH ×2 (15:01→15:02)
[2018-02-25] MEDS: SODIUM CHLORIDE 0.9% 1,000 ML IV SCH ×2 (15:15→20:22)
[2018-02-25] MEDS ORDERED: MORPHINE SULFATE 4 MG/ML SYRINGE IVP PRN (17:06)
[2018-02-25] MEDS ORDERED: ALPRAZolam 0.25 MG TAB PO PRN (17:17)
[2018-02-25] MEDS: HYDROcodone/APAP 5-325MG 1 EACH TAB PO PRN (17:48)
--- NOTE | 2018-02-25 17:58 | HP ---
HISTORY AND PHYSICAL CHIEF COMPLAINT: Nausea, vomiting, diarrhea. HISTORY OF PRESENT ILLNESS: This 77-year-old woman with a past medical history of multiple medical problems, including history of DJD, hypertension, history of diverticulosis, appendectomy, history of bipolar schizophrenia, being followed by Dr. Santillan in the outpatient setting, was admitted with nausea, vomiting, acute gastritis. The patient went home. Currently the patient is complaining of recurrence of nausea, vomiting, diarrhea. Complains of feeling weak. C difficile was negative. The patient was found to have evidence of UTI. Patient is admitted for further evaluation and treatment. There is no history of any fever, rigor or chills. No history of headache, loss of consciousness, seizures at this time. PAST MEDICAL HISTORY: 1. History of recent gastritis. 2. Hypertension. 3. DJD. 4. History of appendectomy. 5. Cholecystectomy. MEDICATIONS PRIOR TO ADMISSION: Medications prior to admission include: 1. Protonix 40 mg b.i.d. 2. MS Contin 30 mg b.i.d. 3. Lisinopril 40 mg daily. 4. Neurontin 300 mg daily. ALLERGIES: BACTRIM, PREDNISONE. FAMILY HISTORY: No history of heart disease or strokes in the family. SOCIAL HISTORY: No history of smoking. No history of alcohol intake. REVIEW OF SYSTEMS: ENT: Diminished hearing. Diminished vision. Patient has hearing aid. Patient is complaining of ear pain, also. Patient also picked the ears, according to her. CARDIOVASCULAR SYSTEM: No angina, palpitations. RESPIRATORY SYSTEM: As mentioned earlier. GI: As mentioned earlier. : No dysuria or retention. NERVOUS SYSTEM: No numbness, weakness. ALLERGY/IMMUNOLOGY: No asthma, hayfever. MUSCULOSKELETAL: As mentioned earlier. HEMATOLOGY/ONCOLOGY: No history of anemia. ENDOCRINE: No history of diabetes, hypothyroidism. CONSTITUTIONAL: As mentioned earlier. DERMATOLOGY: Negative. RHEUMATOLOGY: Negative. PSYCHIATRY: As mentioned earlier. PHYSICAL EXAMINATION: Patient is alert and oriented x3. Pulse is 109, blood pressure 178/79, respiration 18, temperature 100 degrees, pulse ox 94% on room air. HEENT: Conjunctivae normal. Oral mucosa moist. NECK: No jugular venous distention. No carotid bruit. No lymph node enlargement. CARDIOVASCULAR SYSTEM: S1, S2 muffled. RESPIRATORY SYSTEM: Breath sounds diminished at the bases. A few scattered rhonchi. No crackles. ABDOMEN: Soft, non-tender. No mass palpable. LEGS: No edema. No swelling. NERVOUS SYSTEM: Higher functions as mentioned earlier. Moves all 4 limbs. No focal motor or sensory deficit. LYMPHATICS: No lymph node palpable in neck, axillae or groin. SKIN: No ulcer, rash, bleeding. JOINTS: No active deforming arthropathy. LABS: White count 26.5, sodium 129. ASSESSMENT: 1. Acute urinary tract infection with sepsis, present on admission. 2. Nausea, vomiting and diarrhea with dehydration. 3. Ear pain, right. 4. Increased white count. 5. Hyponatremia. 6. Urinary tract infection. 7. History of recent gastritis. 8. History of hypertension. 9. History of degenerative joint disease. 10.History of diverticulosis. 11.Bipolar, schizophrenia. 12.History of mastoidectomy. 13.History of chronic pain syndrome. RECOMMENDATIONS AND DISCUSSION: In this 77-year-old woman who presented with multiple complex medical issues, we will monitor the patient closely, continue the current medications, continue with symptomatic treatment. I recommend broad-spectrum IV antibiotics. Follow the cultures. Resume the home medications. Otherwise, IV fluids. Guarded prognosis because of multiple complex medical issues. Further recommendations to follow. A copy of this dictation is being forwarded to Dr. Santillan, who is the primary physician. MMPAULIEL / NELYN: [id number] /
[2018-02-25] MEDS: MORPHINE SULFATE ER 30 MG TABLET PO SCH (20:17)
[2018-02-25] MEDS: GABAPENTIN 300 MG CAP PO SCH ×2 (20:17→21:15)
[2018-02-25] MEDS: CARBAMIDE PEROXIDE 6.5% DROPS 15 ML BTL RIGHT EAR SCH (20:18)
[2018-02-26] MEDS: MORPHINE SULFATE ER 30 MG TABLET PO SCH ×2 (06:13→17:50)
[2018-02-26] MEDS: ENOXAPARIN 40 MG/0.4 ML SYRINGE SQ SCH (08:34)
[2018-02-26] MEDS: LISINOPRIL 20 MG TAB PO SCH (08:35)
[2018-02-26] MEDS: SODIUM CHLORIDE 0.9% 1,000 ML IV SCH ×2 (08:35→17:04)
[2018-02-26] MEDS: CARBAMIDE PEROXIDE 6.5% DROPS 15 ML BTL RIGHT EAR SCH ×2 (08:35→22:12)
[2018-02-26] MEDS: GABAPENTIN 300 MG CAP PO SCH ×4 (08:35→22:12)
[2018-02-26 08:46] LABS: Basophils % (A) 0 %; Eosinophils % (A) 0 %; Hypochromasia Moderate; Lymphocytes # (A) 0.5 k/uL (1.0-4.8); Lymphocytes % (A) 3 %; MCH 27.5 pg (25.0-35.0); MCHC 30.6 g/dL (31.0-37.0); Mean Platelet Volume 7.9; Monocytes # (A) 0.9 k/uL (0-1.0); Monocytes % (A) 5 %; Neutrophils # (A) 17.3 k/uL (1.3-7.7); Neutrophils % (A) 91 %; Platelet Count 311 k/uL (150-450); RBC 3.56 m/uL (3.80-5.40); RDW 15.2 % (11.5-15.5)
[2018-02-26 08:54] LABS: Anion Gap 9 mmol/L; Blood Urea Nitrogen 10 mg/dL (7-17); Calcium 7.8 mg/dL (8.4-10.2); Carbon Dioxide 24 mmol/L (22-30); Chloride 99 mmol/L (98-107); Glucose 146 mg/dL (74-99); Potassium 3.3 mmol/L (3.5-5.1); Sodium 132 mmol/L (137-145)
[2018-02-26] MEDS ORDERED: PANTOPRAZOLE 40 MG/10 ML VIAL IV SCH (09:00)
[2018-02-26 09:07] LABS: HGB 9.8 gm/dL (11.4-16.0)
[2018-02-26 14:09] LABS: Creatine Kinase MB 1.6 ng/mL (0.0-2.4)
[2018-02-26] MEDS ORDERED: Magnesium Replacement Protocol 1 EACH MISC MISCELLANE PRN (14:15)
[2018-02-26] MEDS ORDERED: Potassium Replacement Protocol 1 EACH MISC MISCELLANE PRN (14:15)
[2018-02-26] MEDS: MAGNESIUM SULFATE-D5W PMX 1 GM in DEXTROSE/WATER 1 100ML.BAG IVPB SCH ×3 (14:49→17:04)
--- NOTE | 2018-02-26 14:49 | P.CRDCN ---
History of Present Illness History of present illness: This is a pleasant 77-year-old female past medical history significant for hypertension, arthritis, bipolar and schizophrenia. She denies history of coronary artery disease, dyslipidemia or diabetes mellitus. She has never seen a helper/driver for any reason. We have been asked to see her in consultation for chest pain. She presented to the hospital yesterday with symptoms of nausea, vomiting, diarrhea and weakness. She states she was discharged last week with viral gastroenteritis and since going home has been getting weaker. She was found to have a significant urinary tract infection and has been started on antibiotics. Today while sitting in bed she developed a discomfort in her chest in the upper anterior chest wall as well as pain in the shoulders. She also is complaining of abdominal pain and headache. She denies shortness of breath, dizziness or palpitations. She also denies PND, orthopnea, cough or lower extremity swelling. EKG reveals sinus mechanism with no acute ST or T-wave abnormalities with non- specific changes. Chest xray indicates increased moderately enlarged heart with diffuse interstitial densities. Possibility of small effusions noted. Laboratory data reviewed, WBC on admission 26.5 down to 19 today, hgb 9.8, plt 311, sodium 132, potassium 3.3, magnesium 1.4, creatinine 0.68, cardiac enzymes negative x1. Current cardiac medications include lisinopril 40 mg daily. At the time of my exam: CONSTITUTIONAL: Denies fever. Denies chills. EYES: Denies blurred vision. Denies vision changes. Denies eye pain. EARS, NOSE, MOUTH & THROAT: Complains of headache. Denies sore throat. Denies ear pain. CARDIOVASCULAR: Denies chest pain. Denies shortness of breath. Denies orthopnea. Denies PND. Denies palpitations. RESPIRATORY: Denies cough. GASTROINTESTINAL: Complains of abdominal pain. Denies diarrhea. Denies constipation. Denies nausea. Denies vomiting. MUSCULOSKELETAL: Denies myalgias. INTEGUMENTARY: Denies pruitis. Denies rash. NEUROLOGIC: Denies numbness. Denies tingling. Denies weakness. PSYCHIATRIC: Denies anxiety. Denies depression. ENDOCRINE: Denies fatigue. Denies weight change. Denies polydipsia. Denies polyurina. GENITOURINARY: Denies burning, hematuria or urgency with micturation. HEMATOLOGIC: Denies history of anemia. Denies bleeding. Blood pressure 155/74 heart rate 110 temperature 101.3F maintaining oxygen saturation on room air GENERAL: This is a 77-year-old in no apparent distress at the time of my examination. Mildly tachypneic. HEENT: Head is atraumatic, normocephalic. Pupils are equal, round. Sclerae anicteric. Conjunctivae are clear. Mucous membranes of the mouth are moist. Neck is supple. There is no jugular venous distention. No carotid bruit is heard. LUNGS: Faint expiratory wheezes noted. No rales or rhonchi. No chest wall tenderness is noted on palpation or with deep breathing. HEART: Regular rate and rhythm without murmurs, rubs or gallops. S1 and S2 heard. ABDOMEN: Soft, nontender. Bowel sounds are heard. No organomegaly noted. EXTREMITIES: No evidence of peripheral edema and no calf tenderness noted. VASCULAR: Radial and dorsalis pedis pulses palpated, no evidence of clubbing. NEUROLOGIC: Patient is awake, alert and oriented x3. ASSESSMENT Chest pain, atypical. No EKG evidence of ischemia. Urinary tract infection Febrile illness Hypertension Nausea, vomiting and diarrhea Leukocytosis Hyponatremia Hypokalemia Hypomagnesemia PLAN Obtain serial cardiac enzymes to rule out an acute event. Obtain 2D echocardiogram and doppler study to assess cardiac structure and function. Replace electrolytes per protocol. Repeat electrolytes in the morning. Repeat EKG in the morning. Ongoing medical management. Thank you kindly for this consultation. Nurse Practitioner note has been reviewed, I agree with a documented findings and plan of care. Patient was seen and examined. Past Medical History Past Medical History: Hypertension, Osteoarthritis (OA) Additional Past Medical History / Comment(s): Diverticulosis ,chronic back pain- back,hips,shoulders, djd, "lt torn rotator cuff" bipolar schizophrenia History of Any Multi-Drug Resistant Organisms: None Reported Past Surgical History: Appendectomy, Cholecystectomy, Ear Surgery, Hernia Repair , Tonsillectomy Additional Past Surgical History / Comment(s): mastiodectomy pt stated" ear drum rebuilt had articficial bones/prothesis pt stated now needs bilat hearing aids. caitlyn hip replacments. Past Anesthesia/Blood Transfusion Reactions: No Reported Reaction Additional Past Anesthesia/Blood Transfusion Reaction / Comment(s): past blood transfusion-no reaction Smoking Status: Never smoker - Past Family History Mother Family Medical History: No Reported History Father Family Medical History: Hypertension, Thyroid Disorder Medications and Allergies Home Medications Medication Instructions Recorded Confirmed Type Lisinopril 40 mg PO DAILY 09/19/14 02/25/18 History Gabapentin [Neurontin] 300 mg PO QID 02/18/18 02/25/18 History Morphine Sulfate ER [Ms Contin] 30 mg PO Q12H 02/18/18 02/25/18 History Pantoprazole Sodium [Protonix] 40 mg PO BID #60 tablet. 02/19/18 02/25/18 Rx Allergies Allergy/AdvReac Type Severity Reaction Status Date / Time sulfamethoxazole Allergy Rash/Hives Verified 02/25/18 12:05 [From Bactrim] trimethoprim [From Bactrim] Allergy Rash/Hives Verified 02/25/18 12:05 prednisone AdvReac Nausea & Verified 02/25/18 12:05 Vomiting & Diarrhea Physical Exam Vitals: Vital Signs Temp Pulse Pulse Pulse Resp BP BP 02/26/18 12:53 101.3 F H 110 H 24 155/74 02/26/18 07:00 98.0 F 95 16 138/64 02/25/18 23:00 98.0 F 101 H 20 162/73 02/25/18 18:20 98.6 F 89 16 173/82 02/25/18 17:44 98.4 F 103 H 26 H 195/109 02/25/18 15:13 98 F 93 18 158/78 Pulse Ox 02/26/18 12:53 93 L 02/26/18 07:00 95 02/25/18 23:00 93 L 02/25/18 18:20 96 02/25/18 17:44 95 02/25/18 15:13 95 Intake and Output 02/25/18 02/26/18 02/26/18 22:59 06:59 14:59 Intake Total 200 0 Balance 200 0 Intake: Oral 200 0 Other: Voiding Method Incontinent Incontinent # Voids 3 1 Results 02/26/18 08:14 02/26/18 08:14 CBC 02/26/18 Range/Units 08:14 WBC 19.0 H (3.8-10.6) k/uL RBC 3.56 L (3.80-5.40) m/uL Hgb 9.8 L D (11.4-16.0) gm/dL Hct 32.0 L (34.0-46.0) % Plt Count 311 (150-450) k/uL Comprehensive Metabolic Panel 02/26/18 Range/Units 08:14 Sodium 132 L (137-145) mmol/L Potassium 3.3 L (3.5-5.1) mmol/L Chloride 99 (98-107) mmol/L Carbon Dioxide 24 (22-30) mmol/L BUN 10 (7-17) mg/dL Creatinine 0.68 (0.52-1.04) mg/dL Glucose 146 H (74-99) mg/dL Calcium 7.8 L (8.4-10.2) mg/dL Current Medications Generic Name Dose Route Start Last Admin Trade Name Freq PRN Reason Stop Dose Admin Hydrocodone Bitart/Acetaminophen 1 each 02/25/18 17:17 02/25/18 17:48 [place] 5-325 PO 1 each Q6HR PRN Administration Pain Alprazolam 0.25 mg 02/25/18 17:17 02/26/18 13:01 Xanax PO 0.25 mg TID PRN Administration Anxiety Carbamide Perox/Anhydrous Glycerin 5 drops 02/25/18 21:00 02/26/18 08:35 Debrox Otic RIGHT EAR 5 drops BID SHARI Administration Enoxaparin Sodium 40 mg 02/26/18 09:00 02/26/18 08:34 Lovenox SQ 40 mg DAILY SHARI Administration Gabapentin 300 mg 02/25/18 18:00 02/26/18 12:13 Neurontin PO 300 mg QID SHARI Administration Ceftriaxone Sodium 1,000 mg/ 50 mls @ 100 mls/hr 02/26/18 16:00 Sodium Chloride IVPB Q24H SHARI Sodium Chloride 1,000 mls @ 100 mls/hr 02/25/18 14:15 02/26/18 08:35 Saline 0.9% IV 100 mls/hr .Q10H SHARI Administration Lisinopril 40 mg 02/26/18 09:00 02/26/18 08:35 Zestril PO 40 mg DAILY SHARI Administration Morphine Sulfate 30 mg 02/25/18 18:00 02/26/18 06:13 Ms Contin PO 30 mg Q12H SHARI Administration Pantoprazole Sodium 40 mg 02/27/18 09:00 Protonix PO DAILY SHARI Intake and Output 02/25/18 02/26/18 02/26/18 22:59 06:59 14:59 Intake Total 200 0 Balance 200 0 Intake: Oral 200 0 Other: Voiding Method Incontinent Incontinent # Voids 3 1 02/26/18 08:14 02/26/18 08:14
[2018-02-26] MEDS: POTASSIUM CHLORIDE ER 20 MEQ TAB.ER PO SCH ×2 (14:50→16:08)
[2018-02-26] MEDS: cefTRIAXone 2,000 MG in SODIUM CHLORIDE 0.9% 100 ML IVPB SCH (18:26)
[2018-02-26] MEDS: 0.9% NACL WITH KCL 40 MEQ/L 1,000 ML IV SCH (18:29)
--- NOTE | 2018-02-26 18:56 | PN ---
PROGRESS NOTE DATE OF SERVICE: 02/26/2018 This 77-year-old woman who was admitted with acute UTI with sepsis is being closely monitored. Patient also had nausea, vomiting, diarrhea also. Patient is feeling chills at this time. The patient also had some chest pain which is felt in the anterior part of the chest. The troponins are negative. Cardiology has been consulted at this time. Cardiology has recommended continue current medications. A 2D echo has been ordered at this time. PAST MEDICAL HISTORY: Reviewed. REVIEW OF SYSTEMS: CARDIOVASCULAR: As mentioned. RESPIRATORY: As mentioned. GI: No nausea. : No dysuria. NERVOUS SYSTEM: No numbness or weakness. CURRENT MEDICATIONS: Reviewed and include: 1. [place] 5 mg q.6h p.r.n. 2. Xanax 0.5 t.i.d. 3. Debrox eardrops. 4. Rocephin 2 grams daily. 5. Lovenox. 6. Neurontin 300 mg daily. 7. Zestril. 8. Magnesium protocol. 9. MS Contin. 10.Protonix. PHYSICAL EXAM: Patient is alert, oriented x3. Pulse 102, blood pressure is 139, respirations 20, temperature 98.6, T-max 101.3. HEENT: Conjunctivae normal. NECK: No jugular venous distention. CARDIOVASCULAR: S1, S2. RESPIRATORY: Breath sounds diminished in the bases. A few scattered rhonchi and crackles. ABDOMEN: Soft, nontender, obese. LEGS: No edema. NERVOUS SYSTEM: Diffusely weak. LABS: WBC 19, hemoglobin 9.2, sodium 130, potassium 3.3. ASSESSMENT: 1. Acute urinary tract infection with sepsis, present on admission. 2. Chest pain for evaluation. 3. Nausea, vomiting, diarrhea with dehydration. 4. Ear pain, right. 5. Increased WBC. 6. Hyponatremia. 7. History of urinary tract infections. 8. History of recent gastritis. 9. History of hypertension. 10.History of degenerative joint disease. 11.History of diverticulosis. 12.History of bipolar schizophrenia. 13.History of mastectomy. 14.History of chronic pain syndrome. 15.FULL CODE. RECOMMENDATIONS AND DISCUSSION: I recommend to continue current medications, continue to monitor, and symptomatic treatment. Otherwise at this time, continue antibiotics. Follow the cultures. I would also get a cardiology consultation, EKG and set of troponins. Guarded prognosis because of multiple complex medical issues. Further recommendations to follow. MMODL / IJN: [id number] /
[2018-02-27] MEDS: HYDROcodone/APAP 5-325MG 1 EACH TAB PO PRN ×2 (03:21→11:11)
[2018-02-27] MEDS: MORPHINE SULFATE ER 30 MG TABLET PO SCH ×2 (05:10→17:06)
--- NOTE | 2018-02-27 06:45 | CONS ---
CONSULTATION DATE OF SERVICE: 02/26/2018. REASON FOR CONSULTATION: Gram-negative bacteremia. HISTORY OF PRESENT ILLNESS: The patient is a 77-year-old female who has been brought into the ER yesterday with chief complaints of not feeling well, weak, increasing nausea, vomiting and diarrhea. Patient subsequently was evaluated by the ER physician. On arrival to the ER, the patient did have a fever of 100 with another fever 101.3 degrees Fahrenheit today. Further workup including a white count of 26,000 repeat is 19. The patient did have a positive UA with large leukocyte esterase, more than 182 WBCs. Influenza PCR was negative. Blood culture now showing a gram-negative bacilli. The patient was started on Rocephin. Infectious Disease was consulted for further recommendation regarding antibiotic therapy. Patient is currently slightly lethargic. Denies significant chest pain. No cough. No nausea. No vomiting. No diarrhea. The patient complains of being constipated. Did not have a bowel movement for the last few days. REVIEW OF SYSTEMS: Positive points have been mentioned in HPI, the rest of system has been negative. PAST MEDICAL HISTORY: Hypertension, osteoarthritis, chronic back pain, diverticulosis, bipolar schizophrenia. PAST SURGICAL HISTORY: Appendectomy, cholecystectomy, hernia repair, hysterectomy. SOCIAL HISTORY: No history of smoking, drinking, or drug use. FAMILY HISTORY: Father history of hypertension and hypothyroidism. ALLERGIES: Allergies to BACTRIM and PREDNISONE. MEDICATION: Medications include the patient is currently on Rocephin 1 gram daily. She is on Protonix, MS Contin, Zestril, Neurontin, Lovenox, Xanax, and [place]. PHYSICAL EXAMINATION: On examination, blood pressure 175/77 with a pulse of 108, temperature 98.1, T-max is 101. She is 95% on room air. General description is an elderly female lying in bed in no distress. No tachypnea or accessory muscle of respiration use. HEENT examination shows pallor, no scleral icterus. Oral mucous membrane is dry. No pharyngeal erythema or thrush. NECK: Trachea central. No thyromegaly. LUNGS: Unlabored breathing, clear to auscultation anteriorly. No wheeze or crackle. HEART: S1, S2. Regular rate and rhythm. ABDOMEN: Soft, no tenderness. No guarding, no rigidity. No organomegaly. EXTREMITIES: No edema of feet. SKIN EXAMINATION: No rash or mass palpable. NEUROLOGICAL: Awake, alert, oriented x2. Mood and affect normal. LABS: Hemoglobin is 9.8, white count 19,000. BUN of 10, creatinine 0.68. UA has been positive, cloudy with more than 182 WBCs. Blood and urine culture shows gram-negative bacilli. DIAGNOSTIC IMPRESSION AND PLAN: Patient with gram-negative sepsis in this patient who did have a fever of 101 degrees Fahrenheit, did have elevated white count 26,000, tachycardic meeting criteria for systemic inflammatory response syndrome, source is likely urinary as patient did have significantly positive UA. Abdomen soft on clinical examination. Clinically doubt any intraabdominal source of sepsis and likely from enteric gram-negative pathogen such as an Escherichia coli as no clear history of any recent antibiotic exposure. PLAN: 1. We will increase Rocephin 2 grams IV piggyback daily wound. 2. We will obtain ultrasound of the kidney and bladder area to make sure no evidence of any structural abnormality. 3. IV fluid. 4. We will follow up on clinical condition and culture to further adjust medication if needed. Thank you for this consultation. Will follow this patient along with you. MMODL / IJN: [id number] /
[2018-02-27] MEDS: CARBAMIDE PEROXIDE 6.5% DROPS 15 ML BTL RIGHT EAR SCH ×2 (07:35→21:08)
[2018-02-27] MEDS: PANTOPRAZOLE 40 MG TABLET PO SCH (07:35)
[2018-02-27] MEDS: ENOXAPARIN 40 MG/0.4 ML SYRINGE SQ SCH (07:35)
[2018-02-27] MEDS: GABAPENTIN 300 MG CAP PO SCH ×4 (07:35→21:07)
[2018-02-27] MEDS: LISINOPRIL 20 MG TAB PO SCH (07:35)
--- NOTE | 2018-02-27 07:35 | ECHOF ---
Referral Reason:cp, sob MEASUREMENTS -------- HEIGHT: 170.2 cm WEIGHT: 74.4 kg BP: 155/74 RVIDd: 2.6 cm (< 3.3) IVSd: 1.0 cm (0.6 - 1.1) LVIDd: 4.0 cm (3.9 - 5.3) LVPWd: 0.9 cm (0.6 - 1.1) IVSs: 1.2 cm LVIDs: 3.0 cm LVPWs: 1.3 cm LAESV Index (A-L): 26.58 ml/m Ao Diam: 2.6 cm (2.0 - 3.7) AV Cusp: 1.6 cm (1.5 - 2.6) LA Diam: 3.1 cm (2.7 - 3.8) MV E Dudley: 0.98 m/s MV DecT: 240 ms MV A Dudley: 1.18 m/s MV E/A Ratio: 0.84 RAP: 5.00 mmHg RVSP: 32.36 mmHg FINDINGS -------- Sinus rhythm. This was a technically adequate study. The left ventricular size is normal. Left ventricular wall thickness is normal. Overall left vent ricular systolic function is normal with, an EF between 55 - 60 %. The right ventricle is normal in size and function. Normal LA size by volume 22+/-6 ml/m2. The right atrium is normal in size. There is mild aortic valve sclerosis. There is no evidence of aortic regurgitation. There is no e vidence of aortic stenosis. Mild mitral annular calcification present. There is trace to mild mitral regurgitation. Trace tricuspid regurgitation present. Right ventricular systolic pressure is normal at < 35 mmHg. There is no evidence of pulmonary hypertension. The pulmonic valve was not well visualized. There is no pulmonic regurgitation present. The aortic root size is normal. IVC Not well visulized. There is no pericardial effusion. CONCLUSIONS -------- 1. Sinus rhythm. 2. This was a technically adequate study. 3. The left ventricular size is normal. 4. Left ventricular wall thickness is normal. 5. Overall left ventricular systolic function is normal with, an EF between 55 - 60 %. 6. Normal LA size by volume 22+/-6 ml/m2. 7. There is mild aortic valve sclerosis. 8. There is no evidence of aortic regurgitation. 9. There is no evidence of aortic stenosis. 10. Mild mitral annular calcification present. 11. There is trace to mild mitral regurgitation. 12. Trace tricuspid regurgitation present. 13. Right ventricular systolic pressure is normal at < 35 mmHg. 14. The pulmonic valve was not well visualized. 15. There is no pulmonic regurgitation present. 16. The aortic root size is normal. 17. IVC Not well visulized. 18. There is no pericardial effusion. ROAD BUILDER: Harris Delgado RDCS
[2018-02-27 09:42] LABS: Basophils % (A) 0 %; Eosinophils # (A) 0.1 k/uL (0-0.7); Eosinophils % (A) 1 %; HCT 31.5 % (34.0-46.0); Hypochromasia Slight; Lymphocytes # (A) 0.7 k/uL (1.0-4.8); Lymphocytes % (A) 8 %; MCH 27.7 pg (25.0-35.0); MCHC 31.8 g/dL (31.0-37.0); MCV 87.2 fL (80.0-100.0); Mean Platelet Volume 6.5; Monocytes # (A) 0.5 k/uL (0-1.0); Monocytes % (A) 6 %; Neutrophils # (A) 7.4 k/uL (1.3-7.7); Neutrophils % (A) 84 %; Platelet Count 294 k/uL (150-450); RBC 3.61 m/uL (3.80-5.40); RDW 15.3 % (11.5-15.5); WBC 8.9 k/uL (3.8-10.6)
[2018-02-27 09:46] LABS: Anion Gap 7 mmol/L; Blood Urea Nitrogen 9 mg/dL (7-17); Carbon Dioxide 24 mmol/L (22-30); Chloride 100 mmol/L (98-107); Glucose 169 mg/dL (74-99); Magnesium 2.1 mg/dL (1.6-2.3); Potassium 3.6 mmol/L (3.5-5.1); Sodium 131 mmol/L (137-145)
--- NOTE | 2018-02-27 10:06 | US ---
EXAMINATION TYPE: US kidneys/renal and bladder DATE OF EXAM: 02/27/2018 COMPARISON: NONE CLINICAL HISTORY: UTI and bacteremia. UTI EXAM MEASUREMENTS: Right Kidney: 10.7 x 4.8 x 5.1 cm Left Kidney: 10.9 x 4.1 x 5.8 cm Right Kidney: No hydronephrosis or nephrolithiasis seen Left Kidney: No hydronephrosis or nephrolithiasis seen Bladder: wnl Bilateral Jets seen: yes There is no evidence for hydronephrosis at this point in time. No nephrolithiasis is seen. No sabrina s are identified. The urinary bladder is anechoic. Bilateral ureteral jets are seen. IMPRESSION:
--- NOTE | 2018-02-27 11:12 | P.PN ---
Subjective This is a pleasant 77-year-old female past medical history significant for hypertension, arthritis, bipolar and schizophrenia. She denies history of coronary artery disease, dyslipidemia or diabetes mellitus. She has never seen a environmental engineering assistant for any reason. We have been asked to see her in consultation for chest pain. She presented to the hospital yesterday with symptoms of nausea, vomiting, diarrhea and weakness. She states she was discharged last week with viral gastroenteritis and since going home has been getting weaker. She was found to have a significant urinary tract infection and has been started on antibiotics. Echocardiogram obtained reveals preserved LV systolic function with EF 55-60%. Cardiac enzymes negative x2. She is seen and examined laying flat in bed. She denies any further symptoms of chest pain. She continues to feel discomfort in her lower abdomen. Blood pressure 165/75 heart rate 90 afebrile maintaining oxygen saturation on room air. Currently maintained on lisinopril 40 mg daily. Laboratory data reviewed, WBC 8.9, hemoglobin 10, platelets 294, sodium 131, potassium 3.6, magnesium 2.1, creatinine 0.66. GENERAL: This is a 77-year-old in no apparent distress at the time of my examination. Mildly tachypneic. HEENT: Head is atraumatic, normocephalic. Pupils are equal, round. Sclerae anicteric. Conjunctivae are clear. Mucous membranes of the mouth are moist. Neck is supple. There is no jugular venous distention. No carotid bruit is heard. LUNGS: Clear to auscultation bilaterally. No wheezes, rales or rhonchi. No chest wall tenderness is noted on palpation or with deep breathing. HEART: Regular rate and rhythm without murmurs, rubs or gallops. S1 and S2 heard. EXTREMITIES: No evidence of peripheral edema and no calf tenderness noted. ASSESSMENT Chest pain, atypical. No EKG evidence of ischemia. Urinary tract infection Febrile illness Hypertension Nausea, vomiting and diarrhea Leukocytosis Hyponatremia Hypokalemia Hypomagnesemia PLAN An acute coronary event has been ruled out with no EKG evidence of ischemia and negative cardiac enzymes. Ongoing medical management per primary care team. We will continue to see her as needed, please feel free to call with further questions or concerns. Nurse Practitioner note has been reviewed, I agree with a documented findings and plan of care. Patient was seen and examined. Objective - Vital Signs Vital signs: Vital Signs Temp 97.4 F L 02/27/18 05:39 Pulse 90 02/27/18 05:39 Resp 18 02/27/18 07:30 BP 165/75 02/27/18 05:39 Pulse Ox 94 L 02/27/18 05:39 Intake & Output 02/26/18 02/27/18 02/27/18 18:59 06:59 18:59 Other: Voiding Method Incontinent Bedside Commode Bedside Commode Incontinent Incontinent # Voids 4 1 # Bowel Movements 0 - Labs CBC & Chem 7: 02/27/18 09:17 02/27/18 09:17 Labs: Abnormal Lab Results - Last 24 Hours (Table) 02/27/18 02/27/18 Range/Units 09:17 09:17 RBC 3.61 L (3.80-5.40) m/uL Hgb 10.0 L (11.4-16.0) gm/dL Hct 31.5 L (34.0-46.0) % Lymphocytes # 0.7 L (1.0-4.8) k/uL Sodium 131 L (137-145) mmol/L Glucose 169 H (74-99) mg/dL Calcium 8.0 L (8.4-10.2) mg/dL Microbiology - Last 24 Hours (Table) 02/25/18 12:00 Urine Culture - Preliminary Urine,Voided Gram Neg Bacilli 02/25/18 12:08 Blood Culture Gram Stain - Preliminary Blood Blood Culture - Preliminary Gram Neg Bacilli 02/25/18 12:08 Blood Culture - Final Blood
[2018-02-27] MEDS ORDERED: IOPAMIDOL-300 CONTRAST 30 ML VIAL (ORAL USE) PO PRN (11:21)
[2018-02-27] MEDS: IOPAMIDOL-300 CONTRAST 30 ML VIAL (ORAL USE) PO PRN ×2 (11:47→13:00)
--- NOTE | 2018-02-27 14:11 | CT ---
EXAMINATION TYPE: CT abdomen pelvis wo con DATE OF EXAM: 02/27/2018 COMPARISON: 02/18/2018 HISTORY: 77-year-old female Generalized abdominal pain CT DLP: 1177 mGycm. Automated exposure control for dose reduction was used. TECHNIQUE: Contiguous axial scanning of the abdomen and pelvis without IV contrast. Coronal and sagit donna reconstructions performed. FINDINGS: Heart borderline enlarged. Coronary vessel calcifications. No pericardial effusion. New small left pl eural effusion and trace right pleural effusion. Patchy left basilar opacity. Small hiatal hernia. Calcified granuloma right hepatic dome. Liver measures 17.2 cm, upper limits of normal in size with d iffuse low-attenuation. Gallbladder surgically absent. Bile duct normal caliber. Adrenal glands, kidneys, spleen, and atrophic pancreas show no gross abnormality. There are mild to moderate atherosclerotic calcifications throughout the abdominal aorta and iliac ar teries. No dilated small bowel, free fluid, or free air. Small diverticulum of the second portion of the duodenum projecting into the pancreatic head region. Mild stool burden. Mild colonic diverticulosis though more extensive within the sigmoid colon. No per icolonic inflammatory change. Moderate sized periumbilical hernia unchanged measuring 3.3 cm wide. There multiple foci of air within the anterior subcutaneous fat layer of the lower abdomen likely rel ating to subcutaneous injections. New mild strandy edema throughout the intra-abdominal fat, bilateral flank and dependent soft tissue edema, and presacral edema. Much of the pelvis is obscured due to extensive metal hardware artifact relating to bilateral hip rep lacements. No obvious abnormal fluid collection in the pelvis. Uterus not visualized probably surgica lly absent. Ovaries either smaller or also surgically absent. Bones: Bilateral total hip arthroplasties. Multilevel degenerative changes throughout the lumbar spin e with grade 1 anterolisthesis at L4-L5 and dish in the visualized thoracic spine. IMPRESSION: 1. New mild anasarca-type change with new small left and trace right effusions. Correlate for fluid overload state. 2. Some patchy left basilar opacity probably represents atelectasis. Correlate for any respiratory i nfection signs/symptoms to exclude infiltrate here. 3. Very low density of the liver can be seen in the setting of either severe hepatic steatosis vers us hepatitis. Clinically correlate. 4. Small hiatal hernia and moderate sized periumbilical hernia. 5. Colonic diverticulosis, greatest in the sigmoid colon. No evidence for acute diverticulitis.
[2018-02-27] MEDS ORDERED: cloNIDine HCL 0.1 MG TAB PO PRN (14:58)
[2018-02-27] MEDS ORDERED: hydrALAZINE HCL 20 MG/ML 1 ML VIAL IVP PRN (14:58)
[2018-02-27] MEDS: 0.9% NACL WITH KCL 40 MEQ/L 1,000 ML IV SCH (15:21)
[2018-02-27] MEDS: cefTRIAXone 2,000 MG in SODIUM CHLORIDE 0.9% 100 ML IVPB SCH (17:05)
--- NOTE | 2018-02-27 17:24 | PN ---
PROGRESS NOTE DATE OF SERVICE: 02/27/2018 This 77-year-old woman who was admitted with acute UTI, sepsis, has gram-negative bacilli grown from the culture. The patient is feeling cold and the patient is being closely monitored at this time. The patient also had some chest pain and is also being closely monitored along with Cardiology. The patient also had nausea, diarrhea and dehydration on admission. The patient is on broad-spectrum IV antibiotics. Past medical history reviewed. Review of systems could not be taken. CURRENT MEDICATIONS: Reviewed. They include: 1. [place] 5 mg q.6 p.r.n. 2. Xanax 0.25 t.i.d. 3. Debrox 5 drops right ear b.i.d. 4. Rocephin 2 grams daily. 5. Lovenox 40 mg daily. 6. Neurontin 300 mg daily. 7. Zestril 40 mg daily. 8. Replacement protocol. 9. Protonix. PHYSICAL EXAMINATION: Patient is alert, oriented x1. Pulse 98, blood pressure 174/72, respiration 18, temperature 97.6, pulse ox 96% on room air. HEENT: Conjunctivae normal. Oral mucosa moist. NECK: No jugular venous distention. No carotid bruit. No lymph node enlargement. CARDIOVASCULAR SYSTEM: S1, S2 muffled. RESPIRATORY SYSTEM: Breath sounds diminished at the bases. A few scattered rhonchi and crackles. ABDOMEN: Soft. Mild diffuse distention present. Possible hernia also present. Mildly tender. No guarding. No rigidity. No mass palpable. LEGS: No edema. No swelling. NERVOUS SYSTEM: Higher functions as mentioned earlier. Moves all 4 limbs. No focal motor or sensory deficit. LYMPHATICS: No lymph node palpable in neck, axillae or groin. SKIN: No ulcer, rash, bleeding. LABS: WBC 8.9, hemoglobin 10, sodium 131. Cultures are showing E coli resistant to ampicillin and Zosyn. ASSESSMENT: 1. Acute urinary tract infection with sepsis, possibly Escherichia coli, present on admission. 2. Chest pain for evaluation. 3. Nausea, vomiting and diarrhea with dehydration. 4. Change in mental status, metabolic encephalopathy, acute on chronic metabolic encephalopathy. 5. Ear pain, right. 6. Hypertension. 7. Increased white count. 8. Hyponatremia. 9. History of urinary tract infection. 10.History of recent gastritis. 11.History of degenerative joint disease. 12.History of diverticulosis. 13.History of bipolar, schizophrenia. 14.History of mastectomy. 15.Chronic pain syndrome. 16.FULL CODE. RECOMMENDATIONS AND DISCUSSION: I recommend to continue current management, continue symptomatic treatment. Final ID of E coli is pending at this time. We will continue to monitor. E coli is sensitive to ceftriaxone. Will closely follow with Infectious Disease. CT scan of the abdomen and pelvis was requested because of the abdominal distention. It showed mild anasarca-type changes, chronic diverticulosis. No other acute changes. Abdominal ultrasound showed no evidence of hydronephrosis. We will continue to monitor. Prognosis guarded. Further recommendations to follow. MMODL / IJN: [id number] /
[2018-02-27] MEDS: POLYETHYLENE GLYCOL 3350 17 GM POWD.PACK PO SCH (18:04)
--- NOTE | 2018-02-27 22:24 | PN ---
PROGRESS NOTE DATE OF SERVICE: 02/26/2018. REASON FOR FOLLOWUP: E coli bacteremia secondary to urinary source. INTERVAL HISTORY: The patient is currently afebrile. She has been breathing comfortably. Denies having any chest pain or shortness of breath, cough. No significant abdominal pain or any diarrhea. EXAMINATION: Vital signs stable. T-max of 98. General description is an elderly female lying in bed in no distress. Respiratory system: Unlabored breathing, clear to auscultation anteriorly. Heart S1, S2. Regular rate and rhythm. ABDOMEN: Soft, no tenderness. LAB: finalized with an E coli. CT abdomen and pelvis with no acute abnormality. Ultrasound of the kidney bladder area with no hydronephrosis. DIAGNOSTIC IMPRESSION AND PLAN: Patient with an E coli bacteremia secondary to the urinary source. Patient is currently covered with Rocephin that will be continued with the plan to finish therapy with oral Cipro on discharge. Continue supportive care. MMODL / IJN: [id number] /
[2018-02-28] MEDS: MORPHINE SULFATE ER 30 MG TABLET PO SCH ×2 (06:13→17:43)
[2018-02-28] MEDS: POLYETHYLENE GLYCOL 3350 17 GM POWD.PACK PO SCH (08:11)
[2018-02-28] MEDS: ENOXAPARIN 40 MG/0.4 ML SYRINGE SQ SCH (08:11)
[2018-02-28] MEDS: GABAPENTIN 300 MG CAP PO SCH ×4 (08:11→20:55)
[2018-02-28] MEDS: CARBAMIDE PEROXIDE 6.5% DROPS 15 ML BTL RIGHT EAR SCH ×2 (08:11→20:53)
[2018-02-28] MEDS: LISINOPRIL 20 MG TAB PO SCH (08:11)
[2018-02-28] MEDS: PANTOPRAZOLE 40 MG TABLET PO SCH (08:11)
[2018-02-28 11:11] LABS: Basophils % (A) 0 %; Eosinophils # (A) 0.2 k/uL (0-0.7); Eosinophils % (A) 2 %; HCT 31.4 % (34.0-46.0); HGB 9.9 gm/dL (11.4-16.0); Hypochromasia Slight; Lymphocytes # (A) 0.9 k/uL (1.0-4.8); Lymphocytes % (A) 11 %; MCH 27.4 pg (25.0-35.0); MCHC 31.5 g/dL (31.0-37.0); MCV 86.9 fL (80.0-100.0); Mean Platelet Volume 6.8; Monocytes # (A) 0.8 k/uL (0-1.0); Monocytes % (A) 10 %; Neutrophils # (A) 6.3 k/uL (1.3-7.7); Neutrophils % (A) 75 %; Platelet Count 324 k/uL (150-450); RBC 3.62 m/uL (3.80-5.40); RDW 15.2 % (11.5-15.5); WBC 8.4 k/uL (3.8-10.6)
[2018-02-28 11:28] LABS: Anion Gap 7 mmol/L; Blood Urea Nitrogen 8 mg/dL (7-17); Calcium 8.1 mg/dL (8.4-10.2); Carbon Dioxide 24 mmol/L (22-30); Chloride 98 mmol/L (98-107); Glucose 128 mg/dL (74-99); Potassium 4.1 mmol/L (3.5-5.1); Sodium 129 mmol/L (137-145)
[2018-02-28] MEDS ORDERED: FUROSEMIDE 10 MG/ML 4 ML VIAL IV STA (12:48)
[2018-02-28] MEDS ORDERED: POTASSIUM CHLORIDE ER 20 MEQ TAB.ER PO STA (12:50)
[2018-02-28] MEDS: 0.9% NACL WITH KCL 40 MEQ/L 1,000 ML IV SCH (12:58)
--- NOTE | 2018-02-28 17:22 | PN ---
PROGRESS NOTE DATE OF SERVICE: 02/28/2018 This 77-year-old woman was admitted with acute UTI with sepsis with E coli. She is improving significantly. No chest pain. No palpitations. No fever. The most recent cultures are negative at this time. EXAM: Alert and oriented x3. Pulse is 106. Blood pressure 143/86, respiration 18, temperature 98.7, pulse ox 98% on room air. HEENT: Conjunctivae normal. Oral mucosa moist. Neck is no jugular venous distention. No carotid bruit. No lymph node enlargement. Cardiovascular: S1, S2 muffled. Respiratory: Breath sounds diminished in the bases. No rhonchi. No crackles. ABDOMEN: Soft, nontender. No mass palpable. Legs: No edema. No swelling. Mild diffuse weakness. LABS: WBC 8.9, hemoglobin 9.2, sodium 129. ASSESSMENT: 1. Acute urinary tract infection with sepsis with possibly E. coli present on admission. 2. Chest pain, improved. 3. Nausea, vomiting, diarrhea, dehydration. 4. Change in mental status, metabolic encephalopathy, acute on chronic metabolic encephalopathy, history of ear pain, right. 5. Hypertension. 6. Increased WBC. 7. Hyponatremia. 8. History urinary tract infection. 9. History of recent gastritis. 10.History of degenerative joint disease. 11.History of diverticulosis. 12.History of bipolar disorder, schizophrenia. 13.History of mastectomy. 14.Chronic pain syndrome. 15.FULL CODE. RECOMMENDATIONS AND DISCUSSION: Recommend to continue current medications, management and symptomatic treatment. Continue with antibiotics. Increase ambulation. At this time, the patient would like to return home per staff. I would recommend PT/OT evaluation and continue to monitor. Further recommendations to follow. MMODL / IJN: [id number] /
[2018-02-28] MEDS: cefTRIAXone 2,000 MG in SODIUM CHLORIDE 0.9% 100 ML IVPB SCH (17:41)
--- NOTE | 2018-02-28 17:52 | PN ---
PROGRESS NOTE DATE OF SERVICE: 02/28/2018. REASON FOR FOLLOWUP: E coli UTI and bacteremia. INTERVAL HISTORY: The patient is currently afebrile. She is breathing comfortably. She is more awake, alert. The patient denies having any chest pain or shortness of breath or cough, abdominal pain. No diarrhea. EXAMINATION: Blood pressure is 152/83 with a pulse of 95, temperature 98.3. She is 96% on room air. General description is an elderly female, lying in bed in no distress. Respiratory system: Unlabored breathing, clear to auscultation anteriorly. Heart S1, S2. Regular rate and rhythm. Abdomen soft, no tenderness. Extremities: No edema of the feet. LABORATORY DATA: Hemoglobin is 9.8, white count of 8.4, BUN of 8, creatinine 0.65. DIAGNOSTIC IMPRESSION AND PLAN: Patient with E coli bacteremia secondary to urinary source. No evidence of any structural abnormality. Currently on Rocephin that will be transitioned to oral Cipro 500 mg twice a day for another 10 days to finish a course of therapy. Continue supportive care. MMODL / IJN: [id number] /
[2018-03-01] MEDS: MORPHINE SULFATE ER 30 MG TABLET PO SCH (05:58)
[2018-03-01] MEDS: 0.9% NACL WITH KCL 40 MEQ/L 1,000 ML IV SCH (08:02)
[2018-03-01] MEDS: CARBAMIDE PEROXIDE 6.5% DROPS 15 ML BTL RIGHT EAR SCH (08:02)
[2018-03-01] MEDS: GABAPENTIN 300 MG CAP PO SCH ×3 (09:11→16:38)
[2018-03-01] MEDS: ENOXAPARIN 40 MG/0.4 ML SYRINGE SQ SCH (09:11)
[2018-03-01] MEDS: LISINOPRIL 20 MG TAB PO SCH (09:11)
[2018-03-01] MEDS: PANTOPRAZOLE 40 MG TABLET PO SCH (09:11)
[2018-03-01] MEDS: POLYETHYLENE GLYCOL 3350 17 GM POWD.PACK PO SCH (09:11)
[2018-03-01 10:01] LABS: Basophils # (A) 0.1 k/uL (0-0.2); Basophils % (A) 1 %; Eosinophils # (A) 0.2 k/uL (0-0.7); Eosinophils % (A) 2 %; HCT 31.5 % (34.0-46.0); Hypochromasia Slight; Lymphocytes # (A) 0.9 k/uL (1.0-4.8); Lymphocytes % (A) 10 %; MCH 27.3 pg (25.0-35.0); MCHC 31.8 g/dL (31.0-37.0); MCV 85.8 fL (80.0-100.0); Mean Platelet Volume 6.5; Monocytes # (A) 0.7 k/uL (0-1.0); Monocytes % (A) 8 %; Neutrophils # (A) 6.7 k/uL (1.3-7.7); Neutrophils % (A) 76 %; Platelet Count 319 k/uL (150-450); RBC 3.67 m/uL (3.80-5.40); RDW 15.4 % (11.5-15.5); WBC 8.8 k/uL (3.8-10.6)
[2018-03-01 10:08] LABS: Anion Gap 6 mmol/L; Blood Urea Nitrogen 9 mg/dL (7-17); Calcium 8.2 mg/dL (8.4-10.2); Carbon Dioxide 26 mmol/L (22-30); Chloride 97 mmol/L (98-107); Glucose 148 mg/dL (74-99); Potassium 3.9 mmol/L (3.5-5.1); Sodium 129 mmol/L (137-145)
--- NOTE | 2018-03-01 11:33 | P.DS ---
Providers Date of admission: 02/25/18 14:04 Attending physician: Amira Sparks Consults: 02/26/18 12:29 Consult Physician Routine Consulting Provider: Raven Pinedo Consult Reason/Comments: uti Do you want consulting provider notified?: Yes 02/26/18 12:51 Consult Physician Urgent Consulting Provider: Cinthya Goldsmith Consult Reason/Comments: chest pain Do you want consulting provider notified?: Already Contacted Primary care physician: Chloé Santillan Hospital Course: Final diagnosis Acute UTI with sepsis with a possible E. coli present on admission. Chest pain improved Nausea vomiting diarrhea hydration Change in mental status metabolic encephalopathy acute on chronic History of for ear pain right Hypertension Increased WBC Hyponatremia History UTI History of recent gastritis. History of DJD History of diverticulosis History of bipolar disorder and schizophrenia History mastectomy Chronic pain syndrome Gait dysfunction Full code Discharge disposition. Patient be discharged in a stable condition with guarded prognosis patient be discharged to [facility] told time taken 35 minutes. History of present illness this is 77-year-old woman with a past medical history multiple medical problems as mentioned earlier being followed by Dr. Santillan in the outpatient setting was admitted with acute UTI sepsis. E. coli was grown from the cultures. Patient given IV Rocephin. Dr. pinedo saw the patient. Patient improved significantly. Patient also had gait dysfunction. Patient also had multiple complex medical issues as detailed above patient was treated with antibiotics. Patient improved significantly. PTOT was evaluated. Patient will be discharged to a [facility] in a stable condition with guarded prognosis. On exam vitals are stable. Cardio S1 and S2 normal. Respirator system. Few scattered rhonchi. Abdomen soft nontender. Nervous system diffusely weak. I recommended follow-up with the Dr. Santillan after discharge from [facility] Patient Condition at Discharge: Fair Plan - Discharge Summary Discharge Rx Participant: No New Discharge Prescriptions: New Acetaminophen Tab [Tylenol Tab] 500 mg PO Q6H PRN #30 tablet PRN Reason: Pain Carbamide Peroxide [Debrox Otic] 5 drops RIGHT EAR BID ml Ciprofloxacin HCl [Cipro] 500 mg PO BID 10 Days #20 tab Multivitamins, Thera [Multivitamin] 1 tab PO DAILY #30 tablet Polyethylene Glycol 3350 [Miralax] 17 gm PO DAILY powd.pack Continue Lisinopril 40 mg PO DAILY Morphine Sulfate ER [Ms Contin] 30 mg PO Q12H Gabapentin [Neurontin] 300 mg PO QID Pantoprazole Sodium [Protonix] 40 mg PO BID #60 tablet. Discharge Medication List Lisinopril 40 mg PO DAILY 09/19/14 [History] Gabapentin [Neurontin] 300 mg PO QID 02/18/18 [History] Morphine Sulfate ER [Ms Contin] 30 mg PO Q12H 02/18/18 [History] Pantoprazole Sodium [Protonix] 40 mg PO BID #60 tablet. 02/19/18 [Rx] Acetaminophen Tab [Tylenol Tab] 500 mg PO Q6H PRN #30 tablet 03/01/18 [Rx] Carbamide Peroxide [Debrox Otic] 5 drops RIGHT EAR BID ml 03/01/18 [Rx] Ciprofloxacin HCl [Cipro] 500 mg PO BID 10 Days #20 tab 03/01/18 [Rx] Multivitamins, Thera [Multivitamin] 1 tab PO DAILY #30 tablet 03/01/18 [Rx] Polyethylene Glycol 3350 [Miralax] 17 gm PO DAILY powd.pack 03/01/18 [Rx] Follow up Appointment(s)/Referral(s): Brandon Heard DO [STAFF PHYSICIAN] - 1-2 Days Chloé Santillan DO [Primary Care Provider] - 2 Weeks Activity/Diet/Wound Care/Special Instructions: activity as tolerated heart healthy diet Nystatin powder to groin Hold the MiraLAX if diarrhea Yogurt one 3 times a day
[2018-03-01 14:48] VITALS: BP 180/72; PULSE 88; RESP 22; TEMP 98.9
[2018-03-01] MEDS: cefTRIAXone 2,000 MG in SODIUM CHLORIDE 0.9% 100 ML IVPB SCH (16:39)
--- NOTE | 2018-03-01 22:29 | PN ---
PROGRESS NOTE DATE OF SERVICE: 03/01/2018 REASON FOR FOLLOWUP: E coli UTI and bacteremia. INTERVAL HISTORY: The patient was seen on rounds this morning. The patient has been afebrile, breathing comfortably. No chest pain. No cough. No abdominal pain or diarrhea. PHYSICAL EXAMINATION: Blood pressure 117/70 with a pulse of 80, temperature of 98.9. She is 93% on room air. General description is an elderly female lying in bed in no distress. RESPIRATORY SYSTEM: Unlabored breathing. Clear to auscultation anteriorly. HEART: S1, S2. Regular rate and rhythm. ABDOMEN: Soft. No tenderness. LABS: Hemoglobin is 10 with a white count 8.3 with a BUN of 9, creatinine 0.68. DIAGNOSTIC IMPRESSION AND PLAN: Patient with Escherichia coli bacteremia secondary to urinary source. Patient has seen clinical improvement on IV Rocephin, with the plan to finish therapy with oral Cipro 500 mg twice a day for another 10 days with close outpatient followup. Continue with supportive care. MMODL / IJN: [id number] /
--- NOTE | 2018-03-04 13:37 | CDI ---
Last Revision, March 2017 Documentation Clarification Form Date: 03/04/18 From: NAIN Silverman Phone: If you have question, contact Mary Oneil at [phone] M-F 8:30 am to 6pm Admit Date: 02/25/2018 2:04:00 PM Patient Name: Dolly Madrigal I Visit Number: [id number] Discharge Date: 03/01/18 ATTENTION: The Clinical Documentation Specialists (CDI) and [facility] Coding Staff appreciate your assistance in clarifying documentation. Please respond to the clarification below the line at the bottom and electronically sign. The CDI & [facility] Coding staff will review the response and follow-up if needed. Please note: Queries are made part of the Legal Health Record. If you have any questions, please contact the author of this message via ITS. Amira Basurto MD Ms Madrigal was admitted for an acute UTI with sepsis. Conflicting documentation has been found in the medical record. Acute on chronic metabolic encephalopathy is documented in the progress notes as well as the discharge summary, however, patients mental status was documented as shown: ED Neurological exam: Present: alert, oriented X3, CN II-XII intact Psychiatric exam: Present: normal affect, normal mood HP Patient is alert and oriented x3 Consult 02/26: NEUROLOGIC: Patient is awake, alert and oriented x3. PN 02/27: Alert and oriented x1. PN 02/28: Alert and oriented x3. In your opinion what is the most clinically appropriate diagnosis for this patient? Acute on chronic metabolic encephalopathy Normal mental status Other type of altered mental status Undetermined Other explanation of clinical findings Unable to determine (no explanation for clinical findings) PN 02/27: Alert and oriented x1. MTDD
--- NOTE | 2018-03-06 14:07 | CDI ---
Documentation Clarification Form Date: 03/04/18 From: NAIN Silverman Phone: If you have question, contact Mary Oneil at [phone] M-F 8:30 am to 6pm Admit Date: 02/25/2018 2:04:00 PM Patient Name: Dolly Madrigal I Visit Number: [id number] Discharge Date: 03/01/18 ATTENTION: The Clinical Documentation Specialists (CDI) and [facility] Coding Staff appreciate your assistance in clarifying documentation. Please respond to the clarification below the line at the bottom and electronically sign. The CDI & [facility] Coding staff will review the response and follow-up if needed. Please note: Queries are made part of the Legal Health Record. If you have any questions, please contact the author of this message via ITS. Amira Basurto MD Ms Madrigal was admitted for an acute UTI with sepsis. Conflicting documentation has been found in the medical record. Acute on chronic metabolic encephalopathy is documented in the progress notes as well as the discharge summary, however, patients mental status was documented as shown: ED Neurological exam: Present: alert, oriented X3, CN II-XII intact Psychiatric exam: Present: normal affect, normal mood HP Patient is alert and oriented x3 Consult 02/26: NEUROLOGIC: Patient is awake, alert and oriented x3. PN 02/27: Alert and oriented x1. PN 02/28: Alert and oriented x3. In your opinion what is the most clinically appropriate diagnosis for this patient? Acute on chronic metabolic encephalopathy Normal mental status Other type of altered mental status Undetermined Other explanation of clinical findings Unable to determine (no explanation for clinical findings) MTDD
== END 2018-03-01 20:23 | DRG 871 ==
LOC: EC 11:34 → 4MS4W 14:04
PROVIDERS: ADMIT Hospitalist; ATTEND Hospitalist
DX: A41.51 Sepsis due to Escherichia coli [E. coli] (principal); G93.41 Metabolic encephalopathy; N39.0 Urinary tract infection, site not specified; E87.1 Hypo-osmolality and hyponatremia; K52.9 Noninfective gastroenteritis and colitis, unspecified; E86.0 Dehydration; M19.90 Unspecified osteoarthritis, unspecified site; F20.9 Schizophrenia, unspecified; E83.42 Hypomagnesemia; E87.6 Hypokalemia; F31.9 Bipolar disorder, unspecified; G89.4 Chronic pain syndrome; R07.89 Other chest pain; R26.9 Unspecified abnormalities of gait and mobility; M54.9 Dorsalgia, unspecified; K57.30 Diverticulosis of large intestine without perforation or abscess without bleeding; H91.90 Unspecified hearing loss, unspecified ear; I11.9 Hypertensive heart disease without heart failure; Z79.899 Other long term (current) drug therapy; Z82.49 Family history of ischemic heart disease and other diseases of the circulatory system; Z87.440 Personal history of urinary (tract) infections; Z90.10 Acquired absence of unspecified breast and nipple; Z90.49 Acquired absence of other specified parts of digestive tract; Z90.710 Acquired absence of both cervix and uterus; Z88.2 Allergy status to sulfonamides; Z88.8 Allergy status to other drugs, medicaments and biological substances; Z79.891 Long term (current) use of opiate analgesic
CPT/HCPCS: 36415; 71046; 74176; 76770; 80048; 80053; 81001; 82550; 82553; 83605; 83735; 84100; 84484; 85025; 85610; 85730; 87040; 87077; 87086; 87186; 87502; 93005; 93306; 96361; 96365; 96367; 96368; 96375; 99285

== ENCOUNTER 2018-03-09 15:34 | Observation (INO) | payer MEDICARE, OTHER ==
[2018-03-09] MEDS ORDERED: SODIUM CHLORIDE 0.9% 500 ML 500 ML IV STA (15:50)
[2018-03-09] MEDS ORDERED: SODIUM CHLORIDE 0.9% 1,000 ML IV STA (15:50)
--- NOTE | 2018-03-09 16:00 | ED ---
Nausea/Vomiting/Diarrhea HPI - General Source: patient, RN notes reviewed Mode of arrival: EMS Limitations: no limitations - History of Present Illness MD complaint: nausea, vomiting <Sabino De La Torre - Last Filed: 03/09/18 17:47> <Wil Nash - Last Filed: 03/09/18 20:26> - General Chief complaint: Nausea/Vomiting/Diarrhea Stated complaint: Vomiting/Nausea Time Seen by Provider: 03/09/18 15:34 - History of Present Illness Initial comments: This is a 76-year-old female who just Home from rehab after an admission for she was diagnosed with diverticulitis and UTI and currently is on Cipro, last night has been having persistent nausea vomiting and abdominal distention since last evening. No diarrhea is reported. She was brought in by EMS. She also states she's been having peripheral edema since he read it. No shortness of breath cough or phlegm production at this time no other modifying factors (Sabino De La Torre) - Related Data Home Medications Medication Instructions Recorded Confirmed Lisinopril 40 mg PO DAILY 09/19/14 03/09/18 Gabapentin [Neurontin] 300 mg PO QID 02/18/18 03/09/18 Morphine Sulfate ER [Ms Contin] 30 mg PO Q12H 02/18/18 03/09/18 Ibuprofen [Motrin Ib] 200 mg PO Q6HR PRN 03/09/18 03/09/18 Previous Rx's Medication Instructions Recorded Pantoprazole Sodium [Protonix] 40 mg PO BID #60 tablet.dr 02/19/18 Ciprofloxacin HCl [Cipro] 500 mg PO BID 10 Days #20 tab 03/01/18 Polyethylene Glycol 3350 [Miralax] 17 gm PO DAILY powd.pack 03/01/18 Allergies Allergy/AdvReac Type Severity Reaction Status Date / Time sulfamethoxazole Allergy Rash/Hives Verified 03/09/18 16:08 [From Bactrim] trimethoprim [From Bactrim] Allergy Rash/Hives Verified 03/09/18 16:08 prednisone AdvReac Nausea & Verified 03/09/18 16:08 Vomiting & Diarrhea Review of Systems ROS Other: All systems not noted in ROS Statement are negative. <Sabino De La Torre - Last Filed: 03/09/18 17:47> ROS Other: All systems not noted in ROS Statement are negative. <Wil Nash - Last Filed: 03/09/18 20:26> ROS Statement: Those systems with pertinent positive or pertinent negative responses have been documented in the HPI. Past Medical History Past Medical History: Hypertension, Osteoarthritis (OA) Additional Past Medical History / Comment(s): Diverticulosis ,chronic back pain- back,hips,shoulders, djd, "lt torn rotator cuff" bipolar schizophrenia History of Any Multi-Drug Resistant Organisms: None Reported Past Surgical History: Appendectomy, Cholecystectomy, Ear Surgery, Hernia Repair , Tonsillectomy Additional Past Surgical History / Comment(s): mastiodectomy pt stated" ear drum rebuilt had articficial bones/prothesis pt stated now needs bilat hearing aids. caitlyn hip replacments. Past Anesthesia/Blood Transfusion Reactions: No Reported Reaction Additional Past Anesthesia/Blood Transfusion Reaction / Comment(s): past blood transfusion-no reaction Past Psychological History: Bipolar, Schizophrenia Smoking Status: Never smoker - Past Family History Mother Family Medical History: No Reported History Father Family Medical History: Hypertension, Thyroid Disorder <WilSabino - Last Filed: 03/09/18 17:47> General Exam Limitations: no limitations General appearance: alert, anxious Head exam: Present: atraumatic, normocephalic, normal inspection Eye exam: Present: normal appearance, PERRL, EOMI. Absent: scleral icterus, conjunctival injection, periorbital swelling ENT exam: Present: mucous membranes dry Neck exam: Present: normal inspection. Absent: tenderness, meningismus, lymphadenopathy Respiratory exam: Present: normal lung sounds bilaterally. Absent: respiratory distress, wheezes, rales, rhonchi, stridor Cardiovascular Exam: Present: regular rate, normal rhythm, normal heart sounds. Absent: systolic murmur, diastolic murmur, rubs, gallop, clicks GI/Abdominal exam: Present: soft, distended, tenderness, normal bowel sounds. Absent: guarding, rebound, rigid, bruit, pulsatile mass, hernia Rectal exam: Present: deferred Extremities exam: Present: normal inspection, full ROM, normal capillary refill , pedal edema. Absent: tenderness, joint swelling, calf tenderness Back exam: Present: normal inspection Neurological exam: Present: alert, oriented X3, CN II-XII intact Psychiatric exam: Present: normal affect, normal mood Skin exam: Present: warm, dry, intact, normal color. Absent: rash <Sabino De La Torre - Last Filed: 03/09/18 17:47> <Wil Nash - Last Filed: 03/09/18 20:26> - General Exam Comments Initial Comments: This is a well-developed well-nourished awake alert oriented female (Sabino De La Torre) Course <Sabino De La Torre - Last Filed: 03/09/18 17:47> <Wil Nash - Last Filed: 03/09/18 20:26> Vital Signs 03/09/18 03/09/18 15:39 19:39 Temperature 99.1 F 98.6 F Pulse Rate 92 93 Respiratory 22 16 Rate Blood Pressure 145/74 181/110 O2 Sat by Pulse 98 Oximetry - Reevaluation(s) Reevaluation #1: 03/09/18 17:47 The patient will be endorsed to Dr. Moore at our shift change pending labs and x-rays. (Sabnio De La Torre) Medical Decision Making - Lab Data Result diagrams: 03/09/18 17:20 <Sabino De La Torre - Last Filed: 03/09/18 17:47> - Lab Data Result diagrams: 03/09/18 17:20 03/09/18 17:20 <Wil Nash - Last Filed: 03/09/18 20:26> - Medical Decision Making Rectal decision making; this patient was endorsed to me by Sabino De La Torre. Patient's history is significant for having had a rehab stay and was discharged yesterday home. The patient's being treated with Cipro for diverticulitis. The patient had nausea vomiting. Patient also suffers with schizophrenia. Per family and patient not eating or drinking for the past 24 hours. Labs show white count of 10 hemoglobin 11 hematocrit of 36 with a INR 1.0 potassium 3.5. BUN 5, creatinine 0.62 with a GFR of 86. plasma lactic acid is 1.6 troponin less than 0.012 amylase lipase within normal limits. Repalpation examination of the abdomen shows no evidence of acute abdomen. Only mildly tender. No rebound or referred pain with normal active bowel sounds. Family is concerned about potentially overuse of Hardy and morphine for chronic pain. The patient reports she has shoulder pain which necessitates the pain medication family wants a pain management evaluation. I advised them to mention this to the nurse and admitting doctor see the patient on the floor. Dr. Saad I discussed the case with Dr. smith patient be omitted his service. (Wil Nash) - Lab Data Lab Results 03/09/18 03/09/18 03/09/18 Range/Units 15:53 17:20 17:20 WBC (3.8-10.6) k/uL RBC (3.80-5.40) m/uL Hgb (11.4-16.0) gm/dL Hct (34.0-46.0) % MCV (80.0-100.0) fL MCH (25.0-35.0) pg MCHC (31.0-37.0) g/dL RDW (11.5-15.5) % Plt Count (150-450) k/uL Neutrophils % % Lymphocytes % % Monocytes % % Eosinophils % % Basophils % % Neutrophils # (1.3-7.7) k/uL Lymphocytes # (1.0-4.8) k/uL Monocytes # (0-1.0) k/uL Eosinophils # (0-0.7) k/uL Basophils # (0-0.2) k/uL Hypochromasia PT (9.0-12.0) sec INR (<1.2) APTT (22.0-30.0) sec Sodium 135 L (137-145) mmol/L Potassium 3.5 (3.5-5.1) mmol/L Chloride 100 (98-107) mmol/L Carbon Dioxide 27 (22-30) mmol/L Anion Gap 8 mmol/L BUN 5 L (7-17) mg/dL Creatinine 0.62 (0.52-1.04) mg/dL Est GFR (CKD-EPI)AfAm >90 (>60 ml/min/1.73 sqM) Est GFR (CKD-EPI)NonAf 86 (>60 ml/min/1.73 sqM) Glucose 123 H (74-99) mg/dL Plasma Lactic Acid El (0.7-2.0) mmol/L Calcium 8.8 (8.4-10.2) mg/dL Total Bilirubin 0.4 (0.2-1.3) mg/dL AST 28 (14-36) U/L ALT 29 (9-52) U/L Alkaline Phosphatase 85 (38-126) U/L Total Creatine Kinase 40 (30-135) U/L CK-MB (CK-2) 1.3 (0.0-2.4) ng/mL CK-MB (CK-2) Rel Index 3.3 Troponin I <0.012 (0.000-0.034) ng/mL Total Protein 6.1 L (6.3-8.2) g/dL Albumin 3.4 L (3.5-5.0) g/dL Amylase <30 L (30-110) U/L Lipase 94 (23-300) U/L Urine Color Light Yellow Urine Appearance Clear (Clear) Urine pH 7.0 (5.0-8.0) Ur Specific [place] 1.006 (1.001-1.035) Urine Protein Trace H (Negative) Urine Glucose (UA) Negative (Negative) Urine Ketones Negative (Negative) Urine Blood Negative (Negative) Urine Nitrite Negative (Negative) Urine Bilirubin Negative (Negative) Urine Urobilinogen <2.0 (<2.0) mg/dL Ur Leukocyte Esterase Small H (Negative) Urine RBC 2 (0-5) /hpf Urine WBC 7 H (0-5) /hpf Ur Squamous Epith Cells 12 H (0-4) /hpf Amorphous Sediment Rare H (None) /hpf Urine Bacteria Rare H (None) /hpf Urine Mucus Rare H (None) /hpf 03/09/18 03/09/18 03/09/18 Range/Units 17:20 17:20 17:20 WBC 10.2 (3.8-10.6) k/uL RBC 4.10 (3.80-5.40) m/uL Hgb 11.0 L (11.4-16.0) gm/dL Hct 36.1 (34.0-46.0) % MCV 88.0 (80.0-100.0) fL MCH 26.9 (25.0-35.0) pg MCHC 30.6 L (31.0-37.0) g/dL RDW 15.3 (11.5-15.5) % Plt Count 580 H (150-450) k/uL Neutrophils % 77 % Lymphocytes % 14 % Monocytes % 5 % Eosinophils % 2 % Basophils % 1 % Neutrophils # 7.8 H (1.3-7.7) k/uL Lymphocytes # 1.4 (1.0-4.8) k/uL Monocytes # 0.5 (0-1.0) k/uL Eosinophils # 0.2 (0-0.7) k/uL Basophils # 0.1 (0-0.2) k/uL Hypochromasia Slight PT 10.7 (9.0-12.0) sec INR 1.0 (<1.2) APTT 25.5 (22.0-30.0) sec Sodium (137-145) mmol/L Potassium (3.5-5.1) mmol/L Chloride (98-107) mmol/L Carbon Dioxide (22-30) mmol/L Anion Gap mmol/L BUN (7-17) mg/dL Creatinine (0.52-1.04) mg/dL Est GFR (CKD-EPI)AfAm (>60 ml/min/1.73 sqM) Est GFR (CKD-EPI)NonAf (>60 ml/min/1.73 sqM) Glucose (74-99) mg/dL Plasma Lactic Acid El 1.6 (0.7-2.0) mmol/L Calcium (8.4-10.2) mg/dL Total Bilirubin (0.2-1.3) mg/dL AST (14-36) U/L ALT (9-52) U/L Alkaline Phosphatase (38-126) U/L Total Creatine Kinase (30-135) U/L CK-MB (CK-2) (0.0-2.4) ng/mL CK-MB (CK-2) Rel Index Troponin I (0.000-0.034) ng/mL Total Protein (6.3-8.2) g/dL Albumin (3.5-5.0) g/dL Amylase (30-110) U/L Lipase (23-300) U/L Urine Color Urine Appearance (Clear) Urine pH (5.0-8.0) Ur Specific [place] (1.001-1.035) Urine Protein (Negative) Urine Glucose (UA) (Negative) Urine Ketones (Negative) Urine Blood (Negative) Urine Nitrite (Negative) Urine Bilirubin (Negative) Urine Urobilinogen (<2.0) mg/dL Ur Leukocyte Esterase (Negative) Urine RBC (0-5) /hpf Urine WBC (0-5) /hpf Ur Squamous Epith Cells (0-4) /hpf Amorphous Sediment (None) /hpf Urine Bacteria (None) /hpf Urine Mucus (None) /hpf Disposition <Sabino De La Torre - Last Filed: 03/09/18 17:47> Is patient prescribed a controlled substance at d/c from ED?: No <Wil Nash - Last Filed: 03/09/18 20:26> Clinical Impression: Nausea & vomiting, Diverticulitis Disposition: ADMITTED IP TO THIS HOSP Condition: Fair Referrals: Chloé Santillan DO [Primary Care Provider] - 1-2 days
[2018-03-09 16:23] LABS: Amorphous Sediment,Urine Rare /hpf; Appearance,Urine Clear (Clear); Bacteria,Urine Rare /hpf; Bilirubin,Urine Negative (Negative); Blood,Urine Negative (Negative); Color,Urine Light Yellow; Glucose,Urine (UA) Negative (Negative); Ketones,Urine Negative (Negative); Leukocyte Esterase,Urine Small (Negative); Mucus,Urine Rare /hpf; Nitrite,Urine Negative (Negative); Protein,Urine Trace (Negative); RBC,Urine 2 /hpf (0-5); Specific Gravity,Urine 1.006 (1.001-1.035); Squamous Epithelial Cell,Urine 12 /hpf (0-4); Urobilinogen,Urine <2.0 mg/dL (<2.0); WBC,Urine 7 /hpf (0-5)
[2018-03-09 17:35] LABS: Basophils # (A) 0.1 k/uL (0-0.2); Basophils % (A) 1 %; Eosinophils # (A) 0.2 k/uL (0-0.7); Eosinophils % (A) 2 %; HCT 36.1 % (34.0-46.0); Hypochromasia Slight; Lymphocytes # (A) 1.4 k/uL (1.0-4.8); Lymphocytes % (A) 14 %; MCH 26.9 pg (25.0-35.0); MCHC 30.6 g/dL (31.0-37.0); Mean Platelet Volume 6.3; Monocytes # (A) 0.5 k/uL (0-1.0); Monocytes % (A) 5 %; Neutrophils # (A) 7.8 k/uL (1.3-7.7); Neutrophils % (A) 77 %; Platelet Count 580 k/uL (150-450); RDW 15.3 % (11.5-15.5); WBC 10.2 k/uL (3.8-10.6)
[2018-03-09 17:54] LABS: Partial Thromboplastin Time 25.5 sec (22.0-30.0); Prothrombin Time 10.7 sec (9.0-12.0)
[2018-03-09 17:57] LABS: Creatine Kinase 40 U/L (30-135)
[2018-03-09 17:58] LABS: ALT 29 U/L (9-52); AST 28 U/L (14-36); Albumin 3.4 g/dL (3.5-5.0); Alkaline Phosphatase 85 U/L (38-126); Amylase <30 U/L (30-110); Anion Gap 8 mmol/L; Blood Urea Nitrogen 5 mg/dL (7-17); Calcium 8.8 mg/dL (8.4-10.2); Carbon Dioxide 27 mmol/L (22-30); Chloride 100 mmol/L (98-107); Glucose 123 mg/dL (74-99); Lipase 94 U/L (23-300); Potassium 3.5 mmol/L (3.5-5.1); Sodium 135 mmol/L (137-145); Total Bilirubin 0.4 mg/dL (0.2-1.3); Total Protein 6.1 g/dL (6.3-8.2)
--- NOTE | 2018-03-09 18:05 | XR ---
EXAMINATION TYPE: XR KUB DATE OF EXAM: 03/09/2018 COMPARISON: 10/12/2016 HISTORY: Nausea and vomiting Findings 2 upright views were obtained and show no sign of intestinal obstruction or pneumoperitoneum. Fecal p attern is normal. There is a 7 mm calcification over the right kidney. There are bilateral hip prosth eses. IMPRESSION: Nonacute abdomen. Possible right renal calculus that is new compared to old exam.
[2018-03-09 18:09] LABS: Creatine Kinase MB 1.3 ng/mL (0.0-2.4); Troponin I <0.012 ng/mL (0.000-0.034)
[2018-03-09] MEDS ORDERED: ENALAPRILAT 1.25 MG/ML 1 ML VIAL IVP STA (19:49)
[2018-03-09] MEDS ORDERED: LEVOFLOXACIN 500MG-D5W PMX 500 MG in DEXTROSE/WATER 1 100ML.BAG IVPB STA (20:26)
[2018-03-09] MEDS ORDERED: metroNIDAZOLE-NS PMX 500 MG in SALINE 1 100ML.BAG IVPB STA (20:28)
[2018-03-09] MEDS ORDERED: ONDANSETRON 4 MG/2 ML VIAL IVP PRN (20:29)
[2018-03-09] MEDS ORDERED: NALOXONE 0.4 MG/ML 1 ML VIAL IV PRN (20:29)
[2018-03-09] MEDS: PANTOPRAZOLE 40 MG TABLET PO SCH (21:32)
[2018-03-09] MEDS: SODIUM CHLORIDE 0.9% 1,000 ML IV SCH (22:00)
[2018-03-09] MEDS: MORPHINE SULFATE ER 30 MG TABLET PO SCH (22:50)
[2018-03-09] MEDS: GABAPENTIN 300 MG CAP PO SCH (22:51)
[2018-03-10] MEDS ORDERED: HYDROcodone/APAP 5-325MG 1 EACH TAB PO STA (03:10)
[2018-03-10] MEDS ORDERED: FUROSEMIDE 10 MG/ML 4 ML VIAL IV STA (03:11)
[2018-03-10 05:52] VITALS: BMI 25.7
[2018-03-10 08:25] LABS: Basophils % (A) 0 %; Eosinophils % (A) 0 %; HCT 32.4 % (34.0-46.0); HGB 9.8 gm/dL (11.4-16.0); Hypochromasia Slight; Lymphocytes # (A) 0.4 k/uL (1.0-4.8); Lymphocytes % (A) 6 %; MCH 26.3 pg (25.0-35.0); MCHC 30.1 g/dL (31.0-37.0); MCV 87.2 fL (80.0-100.0); Mean Platelet Volume 6.4; Monocytes # (A) 0.1 k/uL (0-1.0); Monocytes % (A) 1 %; Neutrophils # (A) 7.2 k/uL (1.3-7.7); Neutrophils % (A) 92 %; Platelet Count 523 k/uL (150-450); RBC 3.72 m/uL (3.80-5.40); RDW 15.4 % (11.5-15.5); WBC 7.8 k/uL (3.8-10.6)
[2018-03-10] MEDS: LISINOPRIL 20 MG TAB PO SCH (08:33)
[2018-03-10] MEDS: POLYETHYLENE GLYCOL 3350 17 GM POWD.PACK PO SCH (08:33)
[2018-03-10] MEDS: SODIUM CHLORIDE 0.9% 1,000 ML IV SCH ×2 (08:34→22:05)
[2018-03-10] MEDS: PANTOPRAZOLE 40 MG TABLET PO SCH ×2 (08:34→17:56)
[2018-03-10] MEDS: GABAPENTIN 300 MG CAP PO SCH ×4 (08:34→22:05)
[2018-03-10] MEDS: MORPHINE SULFATE ER 30 MG TABLET PO SCH ×2 (08:34→20:28)
[2018-03-10 08:36] LABS: ALT 29 U/L (9-52); AST 24 U/L (14-36); Albumin 3.2 g/dL (3.5-5.0); Alkaline Phosphatase 72 U/L (38-126); Anion Gap 8 mmol/L; Blood Urea Nitrogen 5 mg/dL (7-17); Calcium 8.5 mg/dL (8.4-10.2); Carbon Dioxide 29 mmol/L (22-30); Chloride 96 mmol/L (98-107); Glucose 155 mg/dL (74-99); Potassium 3.9 mmol/L (3.5-5.1); Sodium 133 mmol/L (137-145); Total Bilirubin 0.4 mg/dL (0.2-1.3); Total Protein 5.7 g/dL (6.3-8.2)
--- NOTE | 2018-03-10 12:11 | P.HPIM ---
History of Present Illness H&P Date: 03/10/18 Chief Complaint: Nausea and abdominal pain Mrs. Madrigal is a 77-year-old female with a past medical history of hypertension, sugars of tinea, bipolar disorder coming into the emergency Department with a chief complaint of nausea and abdominal pain. Patient was recently admitted couple of weeks back when she was diagnosed with UTI and discharged to a rehab facility on ciprofloxacin. One day prior to this admission patient was discharged from the rehab to her house. Patient states that she did not throw up but has been having dry heaves for the past 1 day and was not able to eat anything at home. Patient was also complaining of abdominal pain , diffuse in nature. No radiation. No associated dysuria or hematuria. No constipation or diarrhea. Patient seems to deviate from the chief complaint and and has tangential talk. Patient's son was contacted and he informed us that patient has history of bipolar disorder and she suffered any and has been off of medications for the past 4 months. And he mentions that she was not being herself towards her caregivers and also towards the family members. He mentioned that she was the one that called the EMS and brought herself to the hospital. But her son mentions that she did not have any episodes of vomiting at home. Patient completed her antibiotic course of ciprofloxacin for UTI couple of days back. Patient denies having any chest pain, palpitations. No cough or difficulty in breathing. No dysuria or hematuria. No loss of consciousness or weakness in her extremities. She mentions that her mood has been okay. No suicidal or homicidal ideation. Review of Systems REVIEW OF SYSTEMS: PSYCH: History of bipolar disorder and his of tinea. As per son she is not behaving like herself NEURO:No c/o weakness of the extremties, No facial droop, No speech abnormalities. VASCULAR: Peripheral nervous system within the normal limits no edema HEMATOLOGIC: No history of easy bleeding and bruising . No recent infections . RESPIRATORY: No cough, No SOB, No chest discomfort. 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 GI: As per HPI Past Medical History Past Medical History: Hypertension, Osteoarthritis (OA) Additional Past Medical History / Comment(s): Diverticulosis ,chronic back pain- back,hips,shoulders, djd, "lt torn rotator cuff" bipolar schizophrenia History of Any Multi-Drug Resistant Organisms: None Reported Past Surgical History: Appendectomy, Cholecystectomy, Ear Surgery, Hernia Repair , Tonsillectomy Additional Past Surgical History / Comment(s): mastiodectomy pt stated" ear drum rebuilt had articficial bones/prothesis pt stated now needs bilat hearing aids. caitlyn hip replacments. Past Anesthesia/Blood Transfusion Reactions: No Reported Reaction Additional Past Anesthesia/Blood Transfusion Reaction / Comment(s): past blood transfusion-no reaction Past Psychological History: Bipolar, Schizophrenia Additional Psychological History / Comment(s): lives with spouse, has caregiver- james daily from 9 am to 3:30. pt uses motorized chair Smoking Status: Never smoker Past Alcohol Use History: Rare Past Drug Use History: None Reported - Past Family History Mother Family Medical History: No Reported History Father Family Medical History: Hypertension, Thyroid Disorder Medications and Allergies Home Medications Medication Instructions Recorded Confirmed Type Lisinopril 40 mg PO DAILY 09/19/14 03/09/18 History Gabapentin [Neurontin] 300 mg PO QID 02/18/18 03/09/18 History Morphine Sulfate ER [Ms Contin] 30 mg PO Q12H 02/18/18 03/09/18 History Pantoprazole Sodium [Protonix] 40 mg PO BID #60 tablet.dr 02/19/18 03/09/18 Rx Ciprofloxacin HCl [Cipro] 500 mg PO BID 10 Days #20 tab 03/01/18 03/09/18 Rx Polyethylene Glycol 3350 [Miralax] 17 gm PO DAILY powd.pack 03/01/18 03/09/18 Rx Ibuprofen [Motrin Ib] 200 mg PO Q6HR PRN 03/09/18 03/09/18 History Allergies Allergy/AdvReac Type Severity Reaction Status Date / Time sulfamethoxazole Allergy Rash/Hives Verified 03/09/18 16:08 [From Bactrim] trimethoprim [From Bactrim] Allergy Rash/Hives Verified 03/09/18 16:08 prednisone AdvReac Nausea & Verified 03/09/18 16:08 Vomiting & Diarrhea Physical Exam Vitals: Vital Signs Temp Pulse Pulse Resp BP BP BP 03/10/18 06:55 97.8 F 77 16 155/70 03/10/18 05:00 68 125/67 03/10/18 01:40 217/96 03/09/18 23:45 03/09/18 22:00 98.4 F 93 18 218/95 205/93 03/09/18 20:40 18 190/87 03/09/18 20:30 187/86 03/09/18 20:20 187/86 03/09/18 19:50 181/110 03/09/18 19:39 98.6 F 93 16 181/110 03/09/18 15:39 99.1 F 92 22 145/74 Pulse Ox 03/10/18 06:55 95 03/10/18 05:00 03/10/18 01:40 03/09/18 23:45 95 03/09/18 22:00 97 03/09/18 20:40 96 03/09/18 20:30 03/09/18 20:20 03/09/18 19:50 96 03/09/18 19:39 98 03/09/18 15:39 Intake and Output 03/09/18 03/10/18 03/10/18 22:59 06:59 14:59 Intake Total 500 Balance 500 Intake: Intake, IV Titration 500 Amount Sodium Chloride 0.9% 1, 400 000 ml @ 80 mls/hr IV . [id number] [facility] Rx#:[id number] metroNIDAZOLE-NS PMX 500 100 mg In Saline 1 100ml.bag @ 100 mls/hr IVPB ONCE STA Rx#:[id number] Other: # Voids 1 3 Weight 74.389 kg GENERAL EXAM GEN. APPEARANCE: alert, in no apparent distress HEAD EXAM: atraumatic, normocephalic, normal inspection EYE EXAM: No pallor. No icterus ENT EXAM: normal exam, mucous membranes moist NECK EXAM: No JVD. No thyromegaly. RESPIRATORY EXAM: Bilateral breath sounds positive. No wheeze or crackles. CARDIOVASCULAR EXAM: S1-S2 heard. No additional sounds. GI/ABDOMINAL EXAM: Abdomen is soft nontender. No distention. Bowel sounds are positive. EXTREMITIES EXAM: No peripheral edema. NEUROLOGICAL EXAM: alert, oriented X3, no focal neurological deficits PSYCHIATRIC EXAM: normal affect, normal mood, tangential talk SKIN EXAM: warm, dry, intact, normal color. Absent: rash Results CBC & Chem 7: 03/10/18 07:30 03/10/18 07:30 Labs: Abnormal Lab Results - Last 24 Hours (Table) 03/09/18 03/09/18 03/09/18 Range/Units 15:53 17:20 17:20 RBC (3.80-5.40) m/uL Hgb 11.0 L (11.4-16.0) gm/dL Hct (34.0-46.0) % MCHC 30.6 L (31.0-37.0) g/dL Plt Count 580 H (150-450) k/uL Neutrophils # 7.8 H (1.3-7.7) k/uL Lymphocytes # (1.0-4.8) k/uL Sodium 135 L (137-145) mmol/L Chloride (98-107) mmol/L BUN 5 L (7-17) mg/dL Glucose 123 H (74-99) mg/dL Total Protein 6.1 L (6.3-8.2) g/dL Albumin 3.4 L (3.5-5.0) g/dL Amylase <30 L (30-110) U/L Urine Protein Trace H (Negative) Ur Leukocyte Esterase Small H (Negative) Urine WBC 7 H (0-5) /hpf Ur Squamous Epith Cells 12 H (0-4) /hpf Amorphous Sediment Rare H (None) /hpf Urine Bacteria Rare H (None) /hpf Urine Mucus Rare H (None) /hpf 03/10/18 03/10/18 Range/Units 07:30 07:30 RBC 3.72 L (3.80-5.40) m/uL Hgb 9.8 L (11.4-16.0) gm/dL Hct 32.4 L (34.0-46.0) % MCHC 30.1 L (31.0-37.0) g/dL Plt Count 523 H (150-450) k/uL Neutrophils # (1.3-7.7) k/uL Lymphocytes # 0.4 L (1.0-4.8) k/uL Sodium 133 L (137-145) mmol/L Chloride 96 L (98-107) mmol/L BUN 5 L (7-17) mg/dL Glucose 155 H (74-99) mg/dL Total Protein 5.7 L (6.3-8.2) g/dL Albumin 3.2 L (3.5-5.0) g/dL Amylase (30-110) U/L Urine Protein (Negative) Ur Leukocyte Esterase (Negative) Urine WBC (0-5) /hpf Ur Squamous Epith Cells (0-4) /hpf Amorphous Sediment (None) /hpf Urine Bacteria (None) /hpf Urine Mucus (None) /hpf Thrombosis Risk Factor Assmnt - Choose All That Apply Any of the Below Risk Factors Present?: Yes Each Factor Represents 1 point: Swollen legs (current) Each Risk Factor Represents 3 Points: Age 75 years or older Other congenital or acquired thrombophilia - If yes, enter type in comment: No Thrombosis Risk Factor Assessment Total Risk Factor Score: 4 Thrombosis Risk Factor Assessment Level: Moderate Risk Assessment and Plan Assessment: ASSESSMENT Nausea with abdominal pain Unusual behavior Recent history of UTI Diverticulosis Chronic low back pain History of bipolar disorder History of Schizophrenia Chronic anemia Mild protein calorie malnutrition Hypovolemic hyponatremia Plan: Will have the patient on antiemetics. We'll consult psychiatric. Continue with the rest of her home medication regimen. Further recommendations depending on the progress of the patient.
[2018-03-10] MEDS: HYDROcodone/APAP 5-325MG 1 EACH TAB PO PRN (17:57)
[2018-03-10 23:03] VITALS: RESP 18
[2018-03-11] MEDS: HYDROcodone/APAP 5-325MG 1 EACH TAB PO PRN (05:30)
[2018-03-11] MEDS: POLYETHYLENE GLYCOL 3350 17 GM POWD.PACK PO SCH (07:49)
[2018-03-11] MEDS: GABAPENTIN 300 MG CAP PO SCH ×2 (07:49→13:50)
[2018-03-11] MEDS: LISINOPRIL 20 MG TAB PO SCH (07:49)
[2018-03-11] MEDS: PANTOPRAZOLE 40 MG TABLET PO SCH (07:49)
[2018-03-11] MEDS: MORPHINE SULFATE ER 30 MG TABLET PO SCH (07:49)
[2018-03-11 08:27] LABS: Basophils # (A) 0.1 k/uL (0-0.2); Basophils % (A) 1 %; Eosinophils # (A) 0.3 k/uL (0-0.7); Eosinophils % (A) 2 %; HCT 35.4 % (34.0-46.0); HGB 10.9 gm/dL (11.4-16.0); Hypochromasia Slight; Lymphocytes # (A) 2.3 k/uL (1.0-4.8); Lymphocytes % (A) 19 %; MCH 26.8 pg (25.0-35.0); MCHC 30.8 g/dL (31.0-37.0); MCV 86.9 fL (80.0-100.0); Mean Platelet Volume 6.5; Monocytes # (A) 0.7 k/uL (0-1.0); Monocytes % (A) 6 %; Neutrophils # (A) 8.6 k/uL (1.3-7.7); Neutrophils % (A) 72 %; Platelet Count 587 k/uL (150-450); RBC 4.08 m/uL (3.80-5.40); RDW 15.3 % (11.5-15.5)
[2018-03-11 08:45] LABS: Anion Gap 9 mmol/L; Blood Urea Nitrogen 7 mg/dL (7-17); Calcium 8.8 mg/dL (8.4-10.2); Carbon Dioxide 33 mmol/L (22-30); Chloride 94 mmol/L (98-107); Glucose 100 mg/dL (74-99); Potassium 3.5 mmol/L (3.5-5.1); Sodium 136 mmol/L (137-145)
[2018-03-11] MEDS: SODIUM CHLORIDE 0.9% 1,000 ML IV SCH (10:14)
--- NOTE | 2018-03-11 15:18 | P.CN ---
Psychiatric Consult - . Consult date: 03/11/18 Consult:: 03/11/18 13:26 Psychiatric consult due to past history of having the diagnosis of schizoaffective disorder bipolar type Assessment and Plan (1) Heroin use disorder, mild, abuse Current Visit: Yes Status: Acute Code(s): F11.10 - OPIOID ABUSE, UNCOMPLICATED SNOMED Code(s): 7616955 (2) Schizoaffective disorder, bipolar type Narrative/Plan: Chief Complaint: Nausea and abdominal pain Mrs. Madrigal is a 77-year-old female with a past medical history of hypertension, sugars of tinea, bipolar disorder coming into the emergency Department with a chief complaint of nausea and abdominal pain. Patient was recently admitted couple of weeks back when she was diagnosed with UTI and discharged to a rehab facility on ciprofloxacin. One day prior to this admission patient was discharged from the rehab to her house. Patient states that she did not throw up but has been having dry heaves for the past 1 day and was not able to eat anything at home. Patient was also complaining of abdominal pain , diffuse in nature. No radiation. No associated dysuria or hematuria. No constipation or diarrhea. Patient seems to deviate from the chief complaint and and has tangential talk. Patient's son was contacted and he informed us that patient has history of bipolar disorder and she suffered any and has been off of medications for the past 4 months. And he mentions that she was not being herself towards her caregivers and also towards the family members. He mentioned that she was the one that called the EMS and brought herself to the hospital. But her son mentions that she did not have any episodes of vomiting at home. Patient completed her antibiotic course of ciprofloxacin for UTI couple of days back. Patient denies having any chest pain, palpitations. No cough or difficulty in breathing. No dysuria or hematuria. No loss of consciousness or weakness in her extremities. She mentions that her mood has been okay. No suicidal or homicidal ideation. Past Medical History Past Medical History: Hypertension, Osteoarthritis (OA) Additional Past Medical History / Comment(s): Diverticulosis ,chronic back pain- back,hips,shoulders, djd, "lt torn rotator cuff" bipolar schizophrenia History of Any Multi-Drug Resistant Organisms: None Reported Past Surgical History: Appendectomy, Cholecystectomy, Ear Surgery, Hernia Repair , Tonsillectomy Additional Past Surgical History / Comment(s): mastiodectomy pt stated" ear drum rebuilt had articficial bones/prothesis pt stated now needs bilat hearing aids. caitlyn hip replacments. Past Anesthesia/Blood Transfusion Reactions: No Reported Reaction Additional Past Anesthesia/Blood Transfusion Reaction / Comment(s): past blood transfusion-no reaction Past Psychological History: Bipolar, Schizophrenia Additional Psychological History / Comment(s): lives with spouse, has caregiver- james daily from 9 am to 3:30. pt uses motorized chair Smoking Status: Never smoker Past Alcohol Use History: Rare Past Drug Use History: None Reported - Past Family History Mother Family Medical History: No Reported History Father Family Medical History: Hypertension, Thyroid Disorder Medications and Allergies Home Medications Medication Instructions Recorded Confirmed Type Lisinopril 40 mg PO DAILY 09/19/14 03/09/18 History Gabapentin [Neurontin] 300 mg PO QID 02/18/18 03/09/18 History Morphine Sulfate ER [Ms Contin] 30 mg PO Q12H 02/18/18 03/09/18 History Pantoprazole Sodium [Protonix] 40 mg PO BID #60 tablet.dr 02/19/18 03/09/18 Rx Ciprofloxacin HCl [Cipro] 500 mg PO BID 10 Days #20 tab 03/01/18 03/09/18 Rx Polyethylene Glycol 3350 [Miralax] 17 gm PO DAILY powd.pack 03/01/18 03/09/18 Rx Ibuprofen [Motrin Ib] 200 mg PO Q6HR PRN 03/09/18 03/09/18 History Allergies Allergy/AdvReac Type Severity Reaction Status Date / Time sulfamethoxazole Allergy Rash/Hives Verified 03/09/18 16:08 [From Bactrim] trimethoprim [From Bactrim] Allergy Rash/Hives Verified 03/09/18 16:08 prednisone AdvReac Nausea & Verified 03/09/18 16:08 Vomiting & Diarrhea PAST PSYCHIATRIC HISTORY: Patient states she first had a "mental breakdown" in 1 after having her first son. She states she had been up all night cleaning and started having hallucinations as well as delusions. She was hospitalized at that time and started on Mellaril. She states she was on Mellaril for 22 years. She also received ECT treatments. She states she had also been psychiatrically hospitalized in 1966, 1977 and 1982. She has had no psychiatric hospitalizations since 1982 and has been maintained on 5-25 of Loxitane the past 30 yrs. In the past she states she had been tried on lithium for a period of time. She states she has never had any suicide attempts or any self-injurious behavior. CURRENT PSYCHIATRIC MEDICATIONS: Loxitane 15 mg by mouth daily at bedtime. FAMILY PSYCHIATRIC HISTORY: She states her second son has had problems with alcohol, anxiety and paranoia. She believes that he is treated with medications. PAST MEDICAL HISTORY:Hypertension, osteoarthritis, diverticulosis, chronic pain , history of mastoidectomy and prosthesis in both ears.. ALLERGIES: Bactrim, prednisone. OTHER MEDICATIONS:lisinopril, ASA, prilosec, norco, catapres, melatonin SUBSTANCE ABUSE HISTORY: Patient denies any abuse of illicit drugs, marijuana, alcohol. She states she does drink wine a couple times a week but does not even finish a full glass. SOCIAL HISTORY: Patient reports that she grew up with her parents and has no history of abuse or mistreatment. She graduated from high school and went to [employer] but "flunked out". She met her there and she worked at [employer] for 6 years but after they were and had children she was a [id number] mom. They have been for 56 years and he was in the . They have 2 sons who live in the area and many grandchildren. Patient and had been estranged from their younger son for a period of years but are in contact again. Patient reports that she and her are financially stable because of his longterm from the and teaching. They live in their own home. She states they both have health problems and have help that comes into their home such as a woman who does housekeeping and cooking, Meals on Wheels, recently a casey saw operator was checking in with them regularly. Mental Status Examination - The patient presents alert, pleasant, and cooperative. There calmly seated without any agitated behavior. She reports that [her] mood is good. Affect is congruent and euthymic. [She] deny having any suicidal or homicidal ideation intent or plan. [She] denies any auditory or visual hallucinations. There is no evidence of any delusional thought content. [Her] thought process is linear and goal-directed. [Her] speech is fluent and nonpressured. Her memory and concentration is grossly intact for the purposes of this session. Psychiatric impression: Long history of major depressive disorder with compliance on medications Psychiatric recommendations: Continue current psychiatric medications nothing further to add; if medically stable able to discharge from a psychiatric standpoint Thank you for the consult Vladislav Broussard D.O. PhD Current Visit: Yes Status: Acute Code(s): F25.0 - SCHIZOAFFECTIVE DISORDER, BIPOLAR TYPE SNOMED Code(s): 09819779 Time with Patient: Less than 30
[2018-03-11 15:33] VITALS: BP 157/68; PULSE 83; TEMP 98.2
--- NOTE | 2018-03-11 15:36 | P.DS ---
Providers Date of admission: 03/09/18 20:29 Expected date of discharge: 03/11/18 Attending physician: Nav Avelar Consults: 03/10/18 11:35 Consult Physician Urgent Consulting Provider: Vladislav Broussard Consult Reason/Comments: history of bi-polar Do you want consulting provider notified?: Already Contacted Primary care physician: [facility] Course: Mrs. Madrigal is a 77-year-old female with a past medical history of hypertension, sugars of tinea, bipolar disorder coming into the emergency Department with a chief complaint of nausea and abdominal pain. Patient was recently admitted couple of weeks back when she was diagnosed with UTI and discharged to a rehab facility on ciprofloxacin. One day prior to this admission patient was discharged from the rehab to her house. Patient states that she did not throw up but has been having dry heaves for the past 1 day and was not able to eat anything at home. Patient was also complaining of abdominal pain , diffuse in nature. No radiation. No associated dysuria or hematuria. No constipation or diarrhea. Patient seems to deviate from the chief complaint and and has tangential talk. Patient's son was contacted and he informed us that patient has history of bipolar disorder and she suffered any and has been off of medications for the past 4 months. And he mentions that she was not being herself towards her caregivers and also towards the family members. He mentioned that she was the one that called the EMS and brought herself to the hospital. But her son mentions that she did not have any episodes of vomiting at home. Patient completed her antibiotic course of ciprofloxacin for UTI couple of days back. During the hospital stay the patient was given antiemetics for her dry heaves and she responded well. Patient has been tolerating food by mouth without any issues. Psychiatric services have been consulted as her son was concerned that she has not been herself for the past few days. Psychiatrically did evaluate the patient and advised to continue with the same medication regimen and did not add any new medications. This morning patient is sitting up comfortably in the bed. She ate her breakfast without any nausea or dry heaves. She mentions that she is back to her baseline and wants to go home. Vital Signs - 24 hr 03/10/18 03/11/18 03/11/18 21:52 06:08 06:37 Temperature 98.0 F 98.0 F 97.9 F Pulse Rate [ 82 87 74 Pulse Oximetery ] Respiratory 18 18 18 Rate Blood Pressure 114/57 180/83 179/72 [Left Arm] O2 Sat by Pulse 98 94 L 94 L Oximetry 03/11/18 08:00 Temperature Pulse Rate [ Pulse Oximetery ] Respiratory 18 Rate Blood Pressure [Left Arm] O2 Sat by Pulse Oximetry GEN. APPEARANCE: alert, in no apparent distress HEAD EXAM: atraumatic, normocephalic, normal inspection EYE EXAM: No pallor. No icterus ENT EXAM: normal exam, mucous membranes moist NECK EXAM: No JVD. No thyromegaly. RESPIRATORY EXAM: Bilateral breath sounds positive. No wheeze or crackles. CARDIOVASCULAR EXAM: S1-S2 heard. No additional sounds. GI/ABDOMINAL EXAM: Abdomen is soft nontender. No distention. Bowel sounds are positive. EXTREMITIES EXAM: No peripheral edema. NEUROLOGICAL EXAM: alert, oriented X3, no focal neurological deficits PSYCHIATRIC EXAM: normal affect, normal mood, tangential talk SKIN EXAM: warm, dry, intact, normal color. Absent: rash DISCHARGE DIAGNOSIS Nausea with abdominal pain - resolved. Recent history of UTI - completed abx course Diverticulosis Chronic low back pain History of bipolar disorder History of Schizophrenia Chronic anemia Mild protein calorie malnutrition Hypovolemic hyponatremia - resolved Plan : Patient's symptoms of nausea and abdominal pain resolved completely. She has been evaluated by psychiatric services and cleared for discharge. Patient is being sent home in a stable condition. No changes made to her medications. She is advised to follow up with her primary care physician in 2- 3 days. Patient Condition at Discharge: Fair Plan - Discharge Summary Discharge Rx Participant: Yes New Discharge Prescriptions: No Action Lisinopril 40 mg PO DAILY Morphine Sulfate ER [Ms Contin] 30 mg PO Q12H Gabapentin [Neurontin] 300 mg PO QID Pantoprazole Sodium [Protonix] 40 mg PO BID #60 tablet. Ciprofloxacin HCl [Cipro] 500 mg PO BID 10 Days #20 tab Polyethylene Glycol 3350 [Miralax] 17 gm PO DAILY powd.pack Ibuprofen [Motrin Ib] 200 mg PO Q6HR PRN PRN Reason: Pain Discharge Medication List Lisinopril 40 mg PO DAILY 09/19/14 [History] Gabapentin [Neurontin] 300 mg PO QID 02/18/18 [History] Morphine Sulfate ER [Ms Contin] 30 mg PO Q12H 02/18/18 [History] Pantoprazole Sodium [Protonix] 40 mg PO BID #60 tablet.dr 02/19/18 [Rx] Ciprofloxacin HCl [Cipro] 500 mg PO BID 10 Days #20 tab 03/01/18 [Rx] Polyethylene Glycol 3350 [Miralax] 17 gm PO DAILY powd.pack 03/01/18 [Rx] Ibuprofen [Motrin Ib] 200 mg PO Q6HR PRN 03/09/18 [History] Follow up Appointment(s)/Referral(s): Chloé Santillan DO [Primary Care Provider] - 1-2 days [facility], [NON-STAFF] -
--- NOTE | 2018-03-19 11:52 | CDI ---
Outpatient Documentation Clarification Form Date: 03-19-18 CDS/Pan Devulcanizer Helper Name: ANN MARIE GORDON Phone: If you have question, contact Mary [facility] Toolroom Checker at M-F 8:30 am to 6pm. Patient Name: MICHAEL GORDON Admit Date: 03-09-18 Discharge Date: 03-11-18 ATTENTION: The Clinical Documentation Specialists (CDI) and [facility] Coding Staff appreciate your assistance in clarifying documentation. Please respond to the clarification below the line at the bottom and electronically sign. The CDI & [facility] Coding staff will review the response and follow-up if needed. Please note: Queries are made part of the Legal Health Record. If you have any questions, please contact the author of this message via ITS or call the Toolroom Checker. Dr. HOLDER, PLEASE SPECIFY THE CAUSE OF THE PATIENT'S NAUSEA AND ABDOMINAL PAIN. NAUSEA AND ABDOMINAL PAIN DUE TO: -DIVERTICULOSIS -UNKNOWN - (OTHER CAUSE) THANK YOU FOR YOUR TIME, ANN MARIE GORDON Unknown [facility]
== END 2018-03-11 16:29 | disposition home or self-care (01) ==
LOC: EC 15:34 → 4MS4W 20:29
PROVIDERS: ADMIT Internal Medicine; ATTEND Internal Medicine
DX: R11.0 Nausea (principal); R10.9 Unspecified abdominal pain; F25.0 Schizoaffective disorder, bipolar type; F32.9 Major depressive disorder, single episode, unspecified; Z87.440 Personal history of urinary (tract) infections; G89.29 Other chronic pain; M54.5 Low back pain; D64.9 Anemia, unspecified; R60.0 Localized edema; M79.89 Other specified soft tissue disorders; K57.90 Diverticulosis of intestine, part unspecified, without perforation or abscess without bleeding; M25.519 Pain in unspecified shoulder; E44.1 Mild protein-calorie malnutrition; Z68.25 Body mass index [BMI] 25.0-25.9, adult; E87.1 Hypo-osmolality and hyponatremia; I10 Essential (primary) hypertension; M19.90 Unspecified osteoarthritis, unspecified site; F11.10 Opioid abuse, uncomplicated; Z90.49 Acquired absence of other specified parts of digestive tract; Z82.49 Family history of ischemic heart disease and other diseases of the circulatory system; Z83.49 Family history of other endocrine, nutritional and metabolic diseases; Z79.899 Other long term (current) drug therapy; Z79.891 Long term (current) use of opiate analgesic; Z88.2 Allergy status to sulfonamides; Z88.8 Allergy status to other drugs, medicaments and biological substances
CPT/HCPCS: 96366 ×2; 96367; 96375 ×2; 96361; 96365; 99285; 36415; 94760; 97162; 80053 ×2; 80048; 82150; 82550; 82553; 83605; 83690; 84484; 85025 ×3; 85610; 85730; 81001; 87040; 74018; G0378 ×3; J1940; J1956

== ENCOUNTER 2018-05-16 12:04 | Emergency (ER) | payer MEDICARE, OTHER ==
[2018-05-16 12:17] VITALS: TEMP 98.5
--- NOTE | 2018-05-16 12:56 | ED ---
General Adult HPI - General Source: patient, EMS, RN notes reviewed, old records reviewed Mode of arrival: EMS Limitations: no limitations <Sabino Evans - Last Filed: 05/16/18 16:04> <Rupesh Mcgill - Last Filed: 05/16/18 21:05> <Mauro Benedict - Last Filed: 05/16/18 22:00> - General Chief complaint: Psychiatric Symptoms Stated complaint: Mental health Time Seen by Provider: 05/16/18 12:39 - History of Present Illness Initial comments: 77-year-old female presenting for psychiatric evaluation. Patient has history of bipolar depression and schizophrenia. According to EMS it was reported that the patient has been off her medication for unknown period of time. Patient is unable to significantly contributing history. She does deny pain complaints. She is alert and oriented, she seems quite paranoid. (Sabino Evans) - Related Data Home Medications Medication Instructions Recorded Confirmed Lisinopril 40 mg PO DAILY 09/19/14 05/16/18 Gabapentin [Neurontin] 300 mg PO QID 02/18/18 05/16/18 Morphine Sulfate ER [Ms Contin] 30 mg PO Q12H 02/18/18 05/16/18 Ibuprofen [Motrin Ib] 200 mg PO Q6HR PRN 03/09/18 05/16/18 Loxapine [Loxitane] 5 mg PO HS 05/16/18 05/16/18 RABEprazole SODIUM 20 mg PO BID 05/16/18 05/16/18 Allergies Allergy/AdvReac Type Severity Reaction Status Date / Time sulfamethoxazole Allergy Rash/Hives Verified 05/16/18 12:22 [From Bactrim] trimethoprim [From Bactrim] Allergy Rash/Hives Verified 05/16/18 12:22 prednisone AdvReac Nausea & Verified 05/16/18 12:22 Vomiting & Diarrhea Review of Systems ROS Other: All systems not noted in ROS Statement are negative. <Sabino Evans - Last Filed: 05/16/18 16:04> ROS Other: All systems not noted in ROS Statement are negative. <Rupesh Mcgill - Last Filed: 05/16/18 21:05> ROS Other: All systems not noted in ROS Statement are negative. <Mauro Benedict - Last Filed: 05/16/18 22:00> ROS Statement: Those systems with pertinent positive or pertinent negative responses have been documented in the HPI. Past Medical History Past Medical History: Hypertension, Osteoarthritis (OA) Additional Past Medical History / Comment(s): Diverticulosis ,chronic back pain- back,hips,shoulders, djd, "lt torn rotator cuff" bipolar schizophrenia History of Any Multi-Drug Resistant Organisms: None Reported Past Surgical History: Appendectomy, Cholecystectomy, Ear Surgery, Hernia Repair , Tonsillectomy Additional Past Surgical History / Comment(s): mastiodectomy pt stated" ear drum rebuilt had articficial bones/prothesis pt stated now needs bilat hearing aids. caitlyn hip replacments. Past Anesthesia/Blood Transfusion Reactions: No Reported Reaction Additional Past Anesthesia/Blood Transfusion Reaction / Comment(s): past blood transfusion-no reaction Past Psychological History: Bipolar, Schizophrenia Smoking Status: Never smoker Past Alcohol Use History: Rare Past Drug Use History: None Reported - Past Family History Mother Family Medical History: No Reported History Father Family Medical History: Hypertension, Thyroid Disorder <Sabino Evans - Last Filed: 05/16/18 16:04> General Exam Limitations: no limitations General appearance: alert, in no apparent distress Head exam: Present: atraumatic, normocephalic Eye exam: Present: normal appearance, PERRL, EOMI ENT exam: Present: mucous membranes dry Neck exam: Present: normal inspection. Absent: tenderness, meningismus Respiratory exam: Present: normal lung sounds bilaterally. Absent: respiratory distress, wheezes Cardiovascular Exam: Present: regular rate. Absent: normal rhythm, bradycardia , tachycardia GI/Abdominal exam: Present: soft. Absent: distended, tenderness, guarding Extremities exam: Present: normal inspection, normal capillary refill. Absent: calf tenderness Psychiatric exam: Present: anxious, flat affect, manic Skin exam: Present: warm, dry, intact. Absent: cyanosis, diaphoretic <Sabino Evans - Last Filed: 05/16/18 16:04> Course <Sabino Evans - Last Filed: 05/16/18 16:04> <Rupesh Mcgill - Last Filed: 05/16/18 21:05> <Mauro Benedict - Last Filed: 05/16/18 22:00> Vital Signs 05/16/18 05/16/18 12:06 15:30 Temperature 98.5 F Pulse Rate 85 88 Respiratory 18 22 Rate Blood Pressure 138/56 O2 Sat by Pulse 98 96 Oximetry - Reevaluation(s) Reevaluation #1: 05/16/18 14:20 Patient is evaluated with bipolar, schizophrenia. Patient has been petitioned by her family. She does receive laboratory studies, urinalysis, head CT, chest x-ray in the emergency department. Patient has normal CBC, mild hypokalemia which is replaced. She has mild transaminitis with no abdominal pain or history of vomiting. CAT scan negative for intracranial hemorrhage or mass effect, no pneumonia on chest x-ray. Patient is medically cleared and awaiting EPS evaluation. Patient's family has petitioned her. (Sabino Evans) Reevaluation #2: 05/16/18 16:05 I did complain clinical certification for this patient. Waiting Final disposition (Sabino Evans) Reevaluation #3: 05/16/18 22:00 Dr. Mcgill had asked that I order 2 mg of Ativan for this patient. (Mauro Benedict) Medical Decision Making - Lab Data Result diagrams: 05/16/18 12:45 05/16/18 12:45 <Sabino Evans - Last Filed: 05/16/18 16:04> - Lab Data Result diagrams: 05/16/18 12:45 05/16/18 12:45 <Rupesh Mcgill - Last Filed: 05/16/18 21:05> - Lab Data Result diagrams: 05/16/18 12:45 05/16/18 12:45 <Mauro Benedict - Last Filed: 05/16/18 22:00> - Lab Data Lab Results 05/16/18 05/16/18 05/16/18 Range/Units 12:45 12:45 12:45 WBC 10.6 (3.8-10.6) k/uL RBC 4.82 (3.80-5.40) m/uL Hgb 12.7 (11.4-16.0) gm/dL Hct 39.9 (34.0-46.0) % MCV 82.7 (80.0-100.0) fL MCH 26.4 (25.0-35.0) pg MCHC 31.9 (31.0-37.0) g/dL RDW 16.9 H (11.5-15.5) % Plt Count 342 (150-450) k/uL Neutrophils % 69 % Lymphocytes % 18 % Monocytes % 8 % Eosinophils % 3 % Basophils % 1 % Neutrophils # 7.3 (1.3-7.7) k/uL Lymphocytes # 2.0 (1.0-4.8) k/uL Monocytes # 0.8 (0-1.0) k/uL Eosinophils # 0.3 (0-0.7) k/uL Basophils # 0.1 (0-0.2) k/uL Anisocytosis Slight Sodium 135 L (137-145) mmol/L Potassium 3.0 L (3.5-5.1) mmol/L Chloride 99 (98-107) mmol/L Carbon Dioxide 23 (22-30) mmol/L Anion Gap 13 mmol/L BUN 7 (7-17) mg/dL Creatinine 0.53 (0.52-1.04) mg/dL Est GFR (CKD-EPI)AfAm >90 (>60 ml/min/1.73 sqM) Est GFR (CKD-EPI)NonAf >90 (>60 ml/min/1.73 sqM) Glucose 112 H (74-99) mg/dL Calcium 9.3 (8.4-10.2) mg/dL Total Bilirubin 1.0 (0.2-1.3) mg/dL AST 51 H (14-36) U/L ALT 64 H (9-52) U/L Alkaline Phosphatase 93 (38-126) U/L Total Protein 6.7 (6.3-8.2) g/dL Albumin 3.8 (3.5-5.0) g/dL Urine Color Yellow Urine Appearance Clear (Clear) Urine pH 6.0 (5.0-8.0) Ur Specific [place] 1.007 (1.001-1.035) Urine Protein Trace H (Negative) Urine Glucose (UA) Negative (Negative) Urine Ketones 1+ H (Negative) Urine Blood Negative (Negative) Urine Nitrite Negative (Negative) Urine Bilirubin Negative (Negative) Urine Urobilinogen 3.0 (<2.0) mg/dL Ur Leukocyte Esterase Moderate H (Negative) Urine WBC 2 (0-5) /hpf Ur Squamous Epith Cells 3 (0-4) /hpf Urine Mucus Occasional H (None) /hpf Urine Opiates Screen Detected H (NotDetected) Ur Oxycodone Screen Not Detected (NotDetected) Urine Methadone Screen Not Detected (NotDetected) Ur Propoxyphene Screen Not Detected (NotDetected) Ur Barbiturates Screen Not Detected (NotDetected) U Tricyclic Antidepress Not Detected (NotDetected) Ur Phencyclidine Scrn Not Detected (NotDetected) Ur Amphetamines Screen Not Detected (NotDetected) U Methamphetamines Scrn Not Detected (NotDetected) U Benzodiazepines Scrn Not Detected (NotDetected) Urine Cocaine Screen Not Detected (NotDetected) U Marijuana (THC) Screen Not Detected (NotDetected) Disposition <Sabino Evans - Last Filed: 05/16/18 16:04> Time of Disposition: 21:06 <Rupesh Mcgill - Last Filed: 05/16/18 21:05> <Mauro Benedict - Last Filed: 05/16/18 22:00> Clinical Impression: Psychosis, Aggressive behavior, Altered mental status, Noncompliance with medications Disposition: TRANSFER TO PSYCH HOSP/UNIT Referrals: Chloé Santillan DO [Primary Care Provider] - 1-2 days
[2018-05-16 13:27] LABS: Appearance,Urine Clear (Clear); Bilirubin,Urine Negative (Negative); Blood,Urine Negative (Negative); Color,Urine Yellow; Glucose,Urine (UA) Negative (Negative); Ketones,Urine 1+ (Negative); Leukocyte Esterase,Urine Moderate (Negative); Mucus,Urine Occasional /hpf; Nitrite,Urine Negative (Negative); Protein,Urine Trace (Negative); Specific Gravity,Urine 1.007 (1.001-1.035); Squamous Epithelial Cell,Urine 3 /hpf (0-4); WBC,Urine 2 /hpf (0-5)
[2018-05-16 13:30] LABS: ALT 64 U/L (9-52); AST 51 U/L (14-36); Albumin 3.8 g/dL (3.5-5.0); Alkaline Phosphatase 93 U/L (38-126); Anion Gap 13 mmol/L; Anisocytosis Slight; Basophils # (A) 0.1 k/uL (0-0.2); Basophils % (A) 1 %; Blood Urea Nitrogen 7 mg/dL (7-17); Calcium 9.3 mg/dL (8.4-10.2); Carbon Dioxide 23 mmol/L (22-30); Chloride 99 mmol/L (98-107); Eosinophils # (A) 0.3 k/uL (0-0.7); Eosinophils % (A) 3 %; Glucose 112 mg/dL (74-99); HCT 39.9 % (34.0-46.0); HGB 12.7 gm/dL (11.4-16.0); Lymphocytes % (A) 18 %; MCH 26.4 pg (25.0-35.0); MCHC 31.9 g/dL (31.0-37.0); MCV 82.7 fL (80.0-100.0); Mean Platelet Volume 6.5; Monocytes # (A) 0.8 k/uL (0-1.0); Monocytes % (A) 8 %; Neutrophils # (A) 7.3 k/uL (1.3-7.7); Neutrophils % (A) 69 %; Platelet Count 342 k/uL (150-450); RBC 4.82 m/uL (3.80-5.40); RDW 16.9 % (11.5-15.5); Sodium 135 mmol/L (137-145); Total Protein 6.7 g/dL (6.3-8.2); WBC 10.6 k/uL (3.8-10.6)
[2018-05-16 13:33] LABS: Amphetamine Screen,Urine Not Detected (NotDetected); Barbiturate Screen,Urine Not Detected (NotDetected); Benzodiazepines Screen,Urine Not Detected (NotDetected); Cocaine Screen,Urine Not Detected (NotDetected); Methadone Screen, Urine Not Detected (NotDetected); Opiate Screen,Urine Detected (NotDetected); Oxycodone Screen, Urine Not Detected (NotDetected); Phencyclidine Screen,Urine Not Detected (NotDetected); Tricyclic Antidepressant,Urine Not Detected (NotDetected); Urn Cannabinoid Scrn Not Detected (NotDetected)
--- NOTE | 2018-05-16 13:48 | CT ---
EXAMINATION TYPE: CT brain wo con DATE OF EXAM: 05/16/2018 COMPARISON: None HISTORY: Mental health, altered mental status CT DLP: 1158.4 mGycm Automated exposure control for dose reduction was used. Helical imaging through the brain. FINDINGS: Cerebral vascular calcifications are present. There is no hemorrhage or hydrocephalus. Cortical atrop hy is present. Periventricular white matter low-attenuation is noted. Calvarium is intact. Postop marie nges are noted to the temporal bones. IMPRESSION: NO ACUTE ABNORMALITY. AGE-RELATED CHANGES OF ATROPHY AND PROBABLE CHRONIC SMALL VESSEL ISCHEMIA.
[2018-05-16] MEDS ORDERED: POTASSIUM BICARBONATE/CIT AC 20 MEQ TABLET.EFF PO ONE (14:09)
--- NOTE | 2018-05-16 14:24 | XR ---
EXAMINATION TYPE: XR chest 2V DATE OF EXAM: 05/16/2018 COMPARISON: Prior chest x-ray 02/25/2018 HISTORY: Pain, psychiatric evaluation TECHNIQUE: Frontal and lateral views of the chest are obtained. FINDINGS: Patient is rotated. There is no focal air space opacity, pleural effusion, or pneumothorax seen. The cardiac silhouette size is possibly enlarged. The osseous structures are intact, patien t is rotated. Aorta is dense. Arthropathy noted in the shoulders. IMPRESSION: No acute cardiopulmonary process. Possible cardiac enlargement. Rotated exam. Follow-up as indicated.
[2018-05-16] MEDS ORDERED: LORazepam 2 MG/ML INJ IM STA (21:59)
[2018-05-16 22:11] VITALS: RESP 18
[2018-05-16 22:16] VITALS: BP 138/65; PULSE 76
== END 2018-05-17 02:03 ==
LOC: EC 12:04
DX: R46.89 Other symptoms and signs involving appearance and behavior (principal); R41.82 Altered mental status, unspecified; F29 Unspecified psychosis not due to a substance or known physiological condition; Z91.14 Patient's other noncompliance with medication regimen; R74.0 Nonspecific elevation of levels of transaminase and lactic acid dehydrogenase [LDH]; E87.6 Hypokalemia; I10 Essential (primary) hypertension; M19.90 Unspecified osteoarthritis, unspecified site; M54.9 Dorsalgia, unspecified; M25.552 Pain in left hip; M25.551 Pain in right hip; M25.512 Pain in left shoulder; M25.511 Pain in right shoulder; F31.9 Bipolar disorder, unspecified; F20.9 Schizophrenia, unspecified; Z79.891 Long term (current) use of opiate analgesic; Z79.899 Other long term (current) drug therapy; Z88.2 Allergy status to sulfonamides; Z88.8 Allergy status to other drugs, medicaments and biological substances; Z96.643 Presence of artificial hip joint, bilateral
CPT/HCPCS: 36415; 80053; 85025; 81001; 80306; 71046; 70450; 99285; 96372; J2060

== ENCOUNTER 2019-07-16 02:25 | Inpatient (IN) | payer MEDICARE, OTHER ==
--- NOTE | 2019-07-16 03:18 | ED ---
Psych HPI - General Chief Complaint: Psychiatric Symptoms Stated Complaint: Mental Health Time Seen by Provider: 07/16/19 02:28 Source: patient, EMS Mode of arrival: EMS Limitations: physical limitation (Patient is very hard of hearing) - History of Present Illness Initial Comments: This patient is an 79-year-old woman brought by ambulance to have evaluation for suspected worsening of what was described as underlying schizophrenia. The patient reportedly having hallucinations and delusions at home. When I interview the patient, she does not have complaints. The history is limited as the patient is very hard of hearing. When I interview she denies suicidal or homicidal ideation. MD Complaint: altered mental status -: unknown - Related Data Home Medications Medication Instructions Recorded Confirmed Lisinopril 40 mg PO DAILY 09/19/14 05/16/18 Gabapentin [Neurontin] 300 mg PO QID 02/18/18 05/16/18 Morphine Sulfate ER [Ms Contin] 30 mg PO Q12H 02/18/18 05/16/18 Ibuprofen [Motrin Ib] 200 mg PO Q6HR PRN 03/09/18 05/16/18 Loxapine [Loxitane] 5 mg PO HS 05/16/18 05/16/18 RABEprazole SODIUM 20 mg PO BID 05/16/18 05/16/18 Allergies Allergy/AdvReac Type Severity Reaction Status Date / Time sulfamethoxazole Allergy Rash/Hives Verified 05/16/18 12:22 [From Bactrim] trimethoprim [From Bactrim] Allergy Rash/Hives Verified 05/16/18 12:22 prednisone AdvReac Nausea & Verified 05/16/18 12:22 Vomiting & Diarrhea Review of Systems ROS Statement: Those systems with pertinent positive or pertinent negative responses have been documented in the HPI. ROS Other: All systems not noted in ROS Statement are negative. Constitutional: Denies: fever Respiratory: Denies: cough, dyspnea Cardiovascular: Denies: chest pain Gastrointestinal: Denies: abdominal pain, vomiting Genitourinary: Denies: dysuria Musculoskeletal: Denies: back pain Neurological: Denies: headache Psychiatric: Denies: homicidal thoughts, suicidal thoughts Past Medical History Past Medical History: Hypertension, Osteoarthritis (OA) Additional Past Medical History / Comment(s): Diverticulosis ,chronic back pain- back,hips,shoulders, djd, "lt torn rotator cuff" bipolar schizophrenia History of Any Multi-Drug Resistant Organisms: None Reported Past Surgical History: Appendectomy, Cholecystectomy, Ear Surgery, Hernia Repair, Tonsillectomy Additional Past Surgical History / Comment(s): mastiodectomy pt stated" ear drum rebuilt had articficial bones/prothesis pt stated now needs bilat hearing aids. caitlyn hip replacments. Past Anesthesia/Blood Transfusion Reactions: No Reported Reaction Additional Past Anesthesia/Blood Transfusion Reaction / Comment(s): past blood transfusion-no reaction Past Psychological History: Anxiety, Bipolar, Schizophrenia Smoking Status: Never smoker Past Alcohol Use History: Rare Past Drug Use History: None Reported - Past Family History Mother Family Medical History: No Reported History Father Family Medical History: Hypertension, Thyroid Disorder General Exam Limitations: no limitations General appearance: alert, in no apparent distress Head exam: Present: atraumatic, normocephalic Eye exam: Present: normal appearance. Absent: scleral icterus, conjunctival injection ENT exam: Present: mucous membranes moist, other (edentulous) Neck exam: Present: normal inspection, full ROM. Absent: meningismus Respiratory exam: Present: normal lung sounds bilaterally. Absent: respiratory distress, wheezes, rales, rhonchi, stridor Cardiovascular Exam: Present: regular rate, normal rhythm, normal heart sounds. Absent: systolic murmur, diastolic murmur, rubs, gallop GI/Abdominal exam: Present: soft. Absent: distended, tenderness, guarding, rebound Extremities exam: Present: normal inspection, normal capillary refill. Absent: pedal edema, calf tenderness Neurological exam: Present: alert. Absent: motor sensory deficit Psychiatric exam: Present: normal mood. Absent: agitated, anxious, flat affect, manic, homicidal ideation, suicidal ideation Skin exam: Present: warm, dry, intact, normal color. Absent: rash Course Vital Signs 07/16/19 02:45 Temperature 97.1 F L Pulse Rate 95 Respiratory 18 Rate Blood Pressure 165/75 O2 Sat by Pulse 97 Oximetry Medical Decision Making - Lab Data Result diagrams: 07/16/19 03:30 07/16/19 03:30 Lab Results 07/16/19 07/16/19 Range/Units 03:30 03:30 WBC 7.1 (3.8-10.6) k/uL RBC 4.44 (3.80-5.40) m/uL Hgb 12.6 (11.4-16.0) gm/dL Hct 38.3 (34.0-46.0) % MCV 86.1 (80.0-100.0) fL MCH 28.3 (25.0-35.0) pg MCHC 32.9 (31.0-37.0) g/dL RDW 13.9 (11.5-15.5) % Plt Count 399 (150-450) k/uL Neutrophils % 63 % Lymphocytes % 23 % Monocytes % 7 % Eosinophils % 5 % Basophils % 1 % Neutrophils # 4.5 (1.3-7.7) k/uL Lymphocytes # 1.7 (1.0-4.8) k/uL Monocytes # 0.5 (0-1.0) k/uL Eosinophils # 0.3 (0-0.7) k/uL Basophils # 0.1 (0-0.2) k/uL Sodium 125 L (137-145) mmol/L Potassium 4.6 (3.5-5.1) mmol/L Chloride 90 L (98-107) mmol/L Carbon Dioxide 28 (22-30) mmol/L Anion Gap 7 mmol/L BUN 8 (7-17) mg/dL Creatinine 0.59 (0.52-1.04) mg/dL Est GFR (CKD-EPI)AfAm >90 (>60 ml/min/1.73 sqM) Est GFR (CKD-EPI)NonAf 86 (>60 ml/min/1.73 sqM) Glucose 102 H (74-99) mg/dL Calcium 9.4 (8.4-10.2) mg/dL Total Bilirubin 0.3 (0.2-1.3) mg/dL AST 22 (14-36) U/L ALT 10 (4-34) U/L Alkaline Phosphatase 123 (38-126) U/L Total Protein 7.0 (6.3-8.2) g/dL Albumin 4.4 (3.5-5.0) g/dL TSH 3.200 (0.465-4.680) mIU/L - EKG Data -: EKG Interpreted by In EKG shows normal: sinus rhythm, axis (Left axis deviation), intervals (ID interval 254 ms, prolonged consistent with a first-degree AV block. QRS duration 86 ms, QTC 441 ms, both normal), QRS complexes (Normal), ST-T waves (Normal) Rate: normal (Rate 99 bpm) Disposition Clinical Impression: Hyponatremia, Schizoaffective disorder, bipolar type Disposition: ADMITTED IP TO THIS HOSP Condition: Fair Is patient prescribed a controlled substance at d/c from ED?: No Referrals: None,Stated [REFERRING] - 1-2 days
[2019-07-16 03:59] LABS: ALT 10 U/L (4-34); AST 22 U/L (14-36); African American GFR (CKD) >90 (>60 ml/min/1.73 sqM); Albumin 4.4 g/dL (3.5-5.0); Alkaline Phosphatase 123 U/L (38-126); Anion Gap 7 mmol/L; Blood Urea Nitrogen 8 mg/dL (7-17); Calcium 9.4 mg/dL (8.4-10.2); Carbon Dioxide 28 mmol/L (22-30); Chloride 90 mmol/L (98-107); Glucose 102 mg/dL (74-99); Non-African American GFR(CKD) 86 (>60 ml/min/1.73 sqM); Potassium 4.6 mmol/L (3.5-5.1); Sodium 125 mmol/L (137-145); Total Bilirubin 0.3 mg/dL (0.2-1.3)
[2019-07-16 04:01] LABS: Basophils # (A) 0.1 k/uL (0-0.2); Basophils % (A) 1 %; Eosinophils # (A) 0.3 k/uL (0-0.7); Eosinophils % (A) 5 %; HCT 38.3 % (34.0-46.0); HGB 12.6 gm/dL (11.4-16.0); Lymphocytes # (A) 1.7 k/uL (1.0-4.8); Lymphocytes % (A) 23 %; MCH 28.3 pg (25.0-35.0); MCHC 32.9 g/dL (31.0-37.0); MCV 86.1 fL (80.0-100.0); Mean Platelet Volume 6.4; Monocytes # (A) 0.5 k/uL (0-1.0); Monocytes % (A) 7 %; Neutrophils # (A) 4.5 k/uL (1.3-7.7); Neutrophils % (A) 63 %; Platelet Count 399 k/uL (150-450); RBC 4.44 m/uL (3.80-5.40); RDW 13.9 % (11.5-15.5); WBC 7.1 k/uL (3.8-10.6)
[2019-07-16] MEDS ORDERED: SODIUM CHLORIDE 0.9% 500 ML 500 ML IV STA (05:55)
[2019-07-16] MEDS ORDERED: NALOXONE 0.4 MG/ML 1 ML VIAL IV PRN (05:55)
[2019-07-16] MEDS ORDERED: SODIUM CHLORIDE 0.9% 1,000 ML IV STA (05:55)
[2019-07-16] MEDS ORDERED: MAG HYDROX/AL HYDROX/SIMETH 30 ML CUP PO PRN (09:00)
[2019-07-16] MEDS ORDERED: DOCUSATE 100 MG CAP PO PRN (09:00)
[2019-07-16] MEDS ORDERED: MORPHINE SULFATE ER 30 MG TABLET PO SCH (09:00)
[2019-07-16] MEDS ORDERED: IBUPROFEN 200 MG TAB PO PRN (09:00)
[2019-07-16] MEDS: PANTOPRAZOLE 40 MG TABLET PO SCH ×2 (09:11→21:17)
[2019-07-16] MEDS: LISINOPRIL 20 MG TAB PO SCH (09:12)
[2019-07-16] MEDS: GABAPENTIN 300 MG CAP PO SCH ×4 (09:12→21:17)
[2019-07-16 11:01] LABS: Appearance,Urine Clear (Clear); Bilirubin,Urine Negative (Negative); Blood,Urine Negative (Negative); Color,Urine Light Yellow; Glucose,Urine (UA) Negative (Negative); Ketones,Urine Negative (Negative); Leukocyte Esterase,Urine Negative (Negative); Nitrite,Urine Negative (Negative); PH, Urine 6.5 (5.0-8.0); Protein,Urine Negative (Negative); Specific Gravity,Urine 1.002 (1.001-1.035); Urobilinogen,Urine <2.0 mg/dL (<2.0)
[2019-07-16 11:15] LABS: Amphetamine Screen,Urine Not Detected (NotDetected); Barbiturate Screen,Urine Not Detected (NotDetected); Benzodiazepines Screen,Urine Not Detected (NotDetected); Cocaine Screen,Urine Not Detected (NotDetected); Methadone Screen, Urine Not Detected (NotDetected); Opiate Screen,Urine Detected (NotDetected); Oxycodone Screen, Urine Not Detected (NotDetected); Phencyclidine Screen,Urine Not Detected (NotDetected); Tricyclic Antidepressant,Urine Detected (NotDetected); Urn Cannabinoid Scrn Not Detected (NotDetected)
[2019-07-16] MEDS ORDERED: ALPRAZolam 0.25 MG TAB PO SCH (11:15)
[2019-07-16] MEDS ORDERED: ARIPiprazole 15 MG TAB PO SCH (11:15)
--- NOTE | 2019-07-16 13:44 | P.CN ---
Psychiatric Consult - . Consult date: 07/16/19 Consult:: 07/16/19 13:24 IDENTIFYING DATA: This patient is a 79-year-old female with a history of schizophrenia who currently lives with her and has a caregiver in the house and has 2 kids HISTORY OF PRESENT ILLNESS: The patient presented to the hospital for altered mental status by ambulance and worsening mental health condition. Patient apparently according to ER report had hallucinations and delusions at home and was a limited historian in the ER. Patient's UDS was positive for opiates and TCAs and sodium was noted to be at 125 and patient was admitted for altered mental status and hyponatremia. Nurse taking care patient states that she has been aggressive at home and has been having fluctuations in her mental status and has had recent med changes. Psychiatry is consulted for mental status changes and schizophrenia. Concession Stand Attendant spoke with patient's caregiver Dianna over the phone at [phone] who states that patient had a recent medication change approximately 3 weeks ago and had Abilify added to her regimen. She states that she is seeing a psychiatrist Dr. Toribio in [place] and has had a chronic history of schizophrenia. She also stated that patient has been more aggressive at night for the past one week and has been taking her medications at home. Patient was seen at the bedside by automobile and property underwriter and appeared to be disorganized and had fluctuating attention span, difficulty concentrating. Patient was bizarre and a poor historian. She was not able to answer questions about her medications or her mood. She did state that she was in [place] and was able to state her name however does not know the date. Patient has a poor fund of knowledge and poor judgment and insight. At this time patient denies any suicidal or homical ideations, intent or plan. Patient denies any auditory, visual hallucinations. Patient denies using any recreational drugs. PAST PSYCHIATRIC HISTORY: His history of schizophrenia and follows up with psychiatrist and [facility] Dr. Toribio and is on several different medications including Xanax and trazodone melatonin loxapine Abilify and desipramine. Patient was last admitted in [place] sometime last year to a geriatric facility.. PAST MEDICAL HISTORY: Hypertension and osteoarthritis. ALLERGIES: as per EMR. CHEMICAL DEPENDENCY HISTORY: as per HPI. FAMILY PSYCHIATRIC/SUBSTANCE USE HISTORY: unable to assess SOCIAL HISTORY: Unable to assess from patient. She currently lives that a house with her and has a caregiver has 2 kids.. MENTAL STATUS EXAM: General Appearance: Patient appears to be thin and frail, older than stated age is alert, difficult to redirect and poor attention span. Patient appears to have fair hygiene and grooming wearing hospital gown with poor eye contact. Behavior: Patient is calmly lying in bed without any agitated behavior. Difficult to redirect. Speech: Patient's speech is fluent and nonpressured. Mood/Affect: Patient reports their mood is "fine", affect is incongruent Suicidality/Homicidality: Patient denies having any suicidal or homicidal ideation intent or plan. Perceptions: Patient denies any visual hallucinations and denies any auditory hallucinations Though content/process: Patient has loosely formed delusions and is illogical with a poor attention span. Memory and concentration: AOX2, cannot spell "WORLD" backwards. Poor attention span. Judgment and insight: poor IMPRESSIONS: Delirium likely etiology toxic/metabolic History of schizophrenia PLAN: -At this time patient DOES NOT meet criteria for inpatient psychiatric admission. We'll continue to assess patient on an ongoing basis to see if she meets criteria for geriatric psychiatric facility admission. -Patient DOES NOT have decision making capacity at this time and is unable to reason through and communicate/appreciate the risks, benefits and alternatives to treatment. -Delirium precautions recommended with patient including - avoiding use of narcotics and NECK SKEWER sedatives, limit anticholinergic medications when possible, frequent re-orientation, minimize use of restraints, open window shades during the day and close them at night -Would recommend the following medication changes/additions: I discontinued Xanax at this time as this may be contributing to patient's delirium and symptoms. Will start patient on Zyprexa 5 mg daily at bedtime for psychosis/insomnia +2.5 mg daily. We'll discontinue Loxitane and Abilify at this time as patient should not be on 2 antipsychotics. Haldol IM when necessary for agitation. Can continue with desipramine and trazodone melatonin as written. -Will continue to follow along -Please contact with any questions. 07/16/19 13:33
[2019-07-16] MEDS ORDERED: OLANZapine 2.5 MG TAB PO ONE (13:45)
[2019-07-16] MEDS ORDERED: HALOPERIDOL LACTATE 5 MG/ML 1 ML VIAL IM PRN (13:45)
[2019-07-16] MEDS: MELOXICAM 7.5 MG TAB PO SCH (13:59)
[2019-07-16] MEDS: LEVOTHYROXINE 25 MCG TAB PO SCH (13:59)
[2019-07-16] MEDS: FERROUS SULFATE 325 MG TAB PO SCH (14:00)
[2019-07-16] MEDS: FOLIC ACID 1 MG TAB PO SCH (14:01)
--- NOTE | 2019-07-16 19:15 | P.HPIM ---
History of Present Illness H&P Date: 07/16/19 Chief Complaint: Delusions, hallucinations History of presenting complaint: This is a 79-year-old patient of visiting physicians Dr. Henley. Chronic stable medical conditions include hypertension, osteoarthritis, colonic diverticulosis. Has history of schizophrenia . was brought into the ER by family members for apparently having hallucinations and delusions at home. Admitted for the same. Saw the patient this morning. Patient denies any fever and chills. Appears r ather delirious. Complains of pain all over. Since that family doctor's not getting any more pain medication. She was found to be resting comfortably when I saw the patient. No change in bowel habit. Does not like the food given where she lives. By caregiver. She wants home cooked meals. Sore anxious. Denies any voices and seeing things the present time. Review of systems: GEN.: Tired EYES: None HEENT: None NECK: None RESPIRATORY: None CARDIOVASCULAR: None GASTROINTESTINAL: None GENITOURINARY: None MUSCULOSKELETAL: Pain all over LYMPHATICS: None HEMATOLOGICAL: None PSYCHIATRY: [A bit delirious NEUROLOGICAL: None Past medical history to include: Hypertension, osteoarthritis, colonic diverticulosis, multiple joint pains, or a schizophrenia Social history: Lives with her spouse. Has caregiver Katie from 9 AM to 3:30 PM. Does use a motorized chair. No smoking. Alcohol rarely. Family history: Denies significant history Physical examination: VITAL SIGNS: 97.1, 95, 18, 165/75, 97% on room air GENERAL: [BMI 26.5, laying in bed, anxious. EYES: Pupils equal. Conjunctiva normal. HEENT: External appearance of nose and ears normal, oral cavity grossly normal. NECK: JVD not raised; masses not palpable. HEART: First and second heart sounds are normal; no edema. LUNGS: Respiratory rate normal; clear to auscultation. ABDOMEN: Soft, nontender, liver spleen not palpable, no masses palpable. PSYCH: [Somewhat delirious. Speech is somewhat rapid. Denies seeing any f igures or hearing voices.. NEUROLOGICAL: Cranial nerves grossly intact; no facial asymmetry, power and sensation grossly intact. LYMPHATICS: No lymph nodes palpable in the axilla and neck INVESTIGATIONS, reviewed in the clinical context: White count 7.1 hemoglobin 12.6 platelets 399 sodium 125 potassium 4.6 and 0.59 TSH at 3.2 UA negative Urine drug screen-positive for opiates and tricyclic antidepressants EKG tracing personally reviewed by me-sinus rhythm Assessment: -Delirious from medications -Hyponatremia may need further investigations Essential hypertension -Primary osteoarthritis -Colonic diverticulosis, asymptomatic -left rotator cuff torn Plan: Psychiatry was consulted. He does not have evidence of any infection. Will check patient's serum osmolarity. Lovenox for DVT prophylaxis. Past Medical History Past Medical History: Hypertension, Osteoarthritis (OA) Additional Past Medical History / Comment(s): Diverticulosis ,chronic back pain- back,hips,shoulders, djd, "lt torn rotator cuff" bipolar schizophrenia History of Any Multi-Drug Resistant Organisms: None Reported Past Surgical History: Appendectomy, Cholecystectomy, Ear Surgery, Hernia Repair, Tonsillectomy Additional Past Surgical History / Comment(s): mastiodectomy pt stated" ear drum rebuilt had articficial bones/prothesis pt stated now needs bilat hearing aids. caitlyn hip replacments. Past Anesthesia/Blood Transfusion Reactions: No Reported Reaction Additional Past Anesthesia/Blood Transfusion Reaction / Comment(s): past blood transfusion-no reaction Past Psychological History: Anxiety, Bipolar, Schizophrenia Smoking Status: Never smoker Past Alcohol Use History: Rare Past Drug Use History: None Reported - Past Family History Mother Family Medical History: No Reported History Father Family Medical History: Hypertension, Thyroid Disorder Medications and Allergies Home Medications Medication Instructions Recorded Confirmed Type ALPRAZolam [Xanax] 0.25 mg PO DAILY 07/16/19 07/16/19 History ARIPiprazole [Abilify] 15 mg PO DAILY 07/16/19 07/16/19 History Cranberry(Unknown Dose) 1 tab PO DAILY 07/16/19 07/16/19 History Desipramine HCl 25 mg PO HS@1900 07/16/19 07/16/19 History Docusate [Colace] 100 mg PO BID 07/16/19 07/16/19 History Ergocalciferol [Vitamin D2] 50,000 unit PO WE 07/16/19 07/16/19 History Ferrous Sulfate [Feosol] 325 mg PO Q48H 07/16/19 07/16/19 History Folic Acid 1 mg PO DAILY 07/16/19 07/16/19 History Gabapentin [Neurontin] 100 mg PO BID@0800,1900 07/16/19 07/16/19 History Levothyroxine Sodium 25 mcg PO DAILY 07/16/19 07/16/19 History Lisinopril [Zestril] 10 mg PO DAILY 07/16/19 07/16/19 History Melatonin 6 mg PO HS@1900 07/16/19 07/16/19 History Meloxicam [Mobic] 15 mg PO DAILY 07/16/19 07/16/19 History traZODone HCL 50 mg PO HS@1900 07/16/19 07/16/19 History Allergies Allergy/AdvReac Type Severity Reaction Status Date / Time sulfamethoxazole Allergy Rash/Hives Verified 07/16/19 09:03 [From Bactrim] trimethoprim [From Bactrim] Allergy Rash/Hives Verified 07/16/19 09:03 prednisone AdvReac Nausea & Verified 07/16/19 09:03 Vomiting & Diarrhea Physical Exam Vitals: Vital Signs Temp Pulse Pulse Resp BP BP Pulse Ox 07/16/19 08:44 98.9 F 99 20 178/93 99 07/16/19 07:30 97.0 F L 98 19 164/86 97 07/16/19 07:20 97 F L 98 18 164/84 97 07/16/19 02:45 97.1 F L 95 18 165/75 97 Intake and Output 07/15/19 07/16/19 07/16/19 22:59 06:59 14:59 Other: Weight 74.389 kg Results CBC & Chem 7: 07/16/19 03:30 07/16/19 03:30 Labs: Abnormal Lab Results - Last 24 Hours (Table) 07/16/19 Range/Units 03:30 Sodium 125 L (137-145) mmol/L Chloride 90 L (98-107) mmol/L Glucose 102 H (74-99) mg/dL
[2019-07-16] MEDS ORDERED: LOXAPINE 5 MG PO SCH (21:00)
[2019-07-16] MEDS: OLANZapine 5 MG TAB PO SCH (21:17)
[2019-07-16] MEDS: DESIPRAMINE 25 MG TAB PO SCH (21:17)
[2019-07-16] MEDS: DOCUSATE 100 MG CAP PO SCH (21:17)
[2019-07-16] MEDS: MELATONIN 3 MG TABLET PO SCH (21:17)
[2019-07-16] MEDS: traZODone HCL 50 MG TAB PO SCH (21:17)
[2019-07-17] MEDS: LEVOTHYROXINE 25 MCG TAB PO SCH (06:14)
[2019-07-17] MEDS: LISINOPRIL 20 MG TAB PO SCH (09:54)
[2019-07-17] MEDS: DOCUSATE 100 MG CAP PO SCH ×2 (09:54→20:28)
[2019-07-17] MEDS: GABAPENTIN 300 MG CAP PO SCH ×4 (09:55→20:29)
[2019-07-17] MEDS: FOLIC ACID 1 MG TAB PO SCH (09:55)
[2019-07-17] MEDS: PANTOPRAZOLE 40 MG TABLET PO SCH ×2 (09:55→20:29)
[2019-07-17] MEDS: SODIUM CHLORIDE TAB 1 GM TAB PO SCH ×4 (09:55→20:29)
[2019-07-17] MEDS: MELOXICAM 7.5 MG TAB PO SCH (09:55)
--- NOTE | 2019-07-17 13:57 | P.PN ---
Progress Note - Text Progress Note Date: 07/17/19 Interval History: Patient was seen for psychiatric follow-up today for delirium with a history of schizophrenia. Patient did not receive any Haldol IM prn meds yesterday and today and was seen at the bedside calmly eating her lunch. Patient continues to have lapses in her attention span and difficulty concentrating during interview. She answered some questions appropriately and others were illogical and disorganized. She claims that she slept last night and spoke about her family briefly and was tangential. She also asked several times for the justowriter operator to identify himself however was directable and agreeable to speak to him. At this time patient denies any suicidal or homical ideations, intent or plan. Patient denies any auditory, visual hallucinations. Patient has been taking her medications. Mental Status Exam: General Appearance: Patient appears to be thin and frail, older than stated age is alert, difficult to redirect mildly improved attention span. Patient appears to have fair hygiene and grooming wearing hospital gown with improving eye contact. Behavior: Patient is calmly lying in bed without any agitated behavior. Difficult to redirect. Speech: Patient's speech is fluent and nonpressured. Mood/Affect: Patient reports their mood is "ok", affect is incongruent Suicidality/Homicidality: Patient denies having any suicidal or homicidal ideation intent or plan. Perceptions: Patient denies any visual hallucinations and denies any auditory hallucinations Though content/process: Patient has loosely formed delusions and is illogical with a poor attention span. Memory and concentration: AOX2, cannot spell "WORLD" backwards. Poor attention span, mildly improving. Judgment and insight: poor Assessment Delirium likely etiology toxic/metabolic History of schizophrenia Plan: -At this time patient DOES NOT meet criteria for inpatient psychiatric admission. We'll continue to assess patient on an ongoing basis to see if she meets criteria for geriatric psychiatric facility admission. -Patient DOES NOT have decision making capacity at this time and is unable to reason through and communicate/appreciate the risks, benefits and alternatives to treatment. -Delirium precautions recommended with patient including - avoiding use of narcotics and VICE PRESIDENT OF DEVELOPMENT sedatives, limit anticholinergic medications when possible, frequent re-orientation, minimize use of restraints, open window shades during the day and close them at night -Would recommend the following medication changes/additions: Continue holding off on Xanax or any benzodiazepines as this will cause more confusion and worsening of possible delirium. Continue with Zyprexa 5 mg daily at bedtime for psychosis/insomnia +2.5 mg daily. Haldol IM when necessary for agitation. Can continue with desipramine and trazodone melatonin as written. -Will continue to follow along as needed. We'll attempt to speak with patient's son the power of deputy county attorney Michael today to gather more information. -Please contact with any questions.
[2019-07-17 14:43] LABS: Basophils # (A) 0.1 k/uL (0-0.2); Basophils % (A) 1 %; Eosinophils # (A) 0.3 k/uL (0-0.7); Eosinophils % (A) 4 %; HCT 36.8 % (34.0-46.0); HGB 11.9 gm/dL (11.4-16.0); Lymphocytes # (A) 1.1 k/uL (1.0-4.8); Lymphocytes % (A) 14 %; MCH 29.3 pg (25.0-35.0); MCHC 32.4 g/dL (31.0-37.0); MCV 90.3 fL (80.0-100.0); Mean Platelet Volume 6.5; Monocytes # (A) 0.4 k/uL (0-1.0); Monocytes % (A) 5 %; Neutrophils # (A) 5.6 k/uL (1.3-7.7); Neutrophils % (A) 74 %; Platelet Count 335 k/uL (150-450); RBC 4.07 m/uL (3.80-5.40); RDW 14.3 % (11.5-15.5); WBC 7.6 k/uL (3.8-10.6)
[2019-07-17 15:17] LABS: African American GFR (CKD) >90 (>60 ml/min/1.73 sqM); Anion Gap 8 mmol/L; Blood Urea Nitrogen 10 mg/dL (7-17); Calcium 8.5 mg/dL (8.4-10.2); Carbon Dioxide 23 mmol/L (22-30); Chloride 97 mmol/L (98-107); Glucose 166 mg/dL (74-99); Non-African American GFR(CKD) 84 (>60 ml/min/1.73 sqM); Potassium 4.5 mmol/L (3.5-5.1); Sodium 128 mmol/L (137-145)
[2019-07-17] MEDS: OLANZapine 2.5 MG TAB PO SCH (15:31)
--- NOTE | 2019-07-17 18:01 | P.PN ---
Progress Note - Text Progress Note Date: 07/17/19 Chief Complaint: Delusions, hallucinations History of presenting complaint: This is a 79-year-old patient of visiting physicians Dr. Henley. Chronic stable medical conditions include hypertension, osteoarthritis, colonic diverticulosis. Has history of schizophrenia . was brought into the ER by family members for apparently having hallucinations and delusions at home. Admitted for the same. Saw the patient this morning. Patient denies any fever and chills. Appears rather delirious. Complains of pain all over. Since that family doctor's not getting any more pain medication. She was found to be resting comfortably when I saw the patient. No change in bowel habit. Does not like the food given where she lives. By caregiver. She wants home cooked meals. Sore anxious. Denies any voices and seeing things the present time. Admitted with delirium. Hyponatremia. Medication adjusted by psychiatry. Salt tablets were added. Started on fluid restriction. Per psychiatry-Xanax was discontinued, started on Zyprexa. Also Loxitane and Abilify were discontinued Today-feels a bit better. Eating about 50%. Review of systems: Was done for constitutional, cardiovascular, GI, pulmonary. relevant finding as above Active Medications Al Hydroxide/Mg Hydroxide (Maalox) 15 ml PO Q6HR PRN PRN Reason: Indigestion Desipramine HCl (Norpramin) 25 mg PO HS@1900 [facility] Last Admin: 07/16/19 21:17 Dose: 25 mg Documented by: Docusate Sodium (Colace) 100 mg PO BID PRN PRN Reason: Constipation Docusate Sodium (Colace) 100 mg PO BID [facility] Last Admin: 07/17/19 09:54 Dose: 100 mg Documented by: Ferrous Sulfate (Feosol) 325 mg PO Q48H [facility] Last Admin: 07/16/19 14:00 Dose: Not Given Documented by: Folic Acid (Folic Acid) 1 mg PO DAILY [facility] Last Admin: 07/17/19 09:55 Dose: 1 mg Documented by: Gabapentin (Neurontin) 300 mg PO QID [facility] Last Admin: 07/17/19 17:34 Dose: 300 mg Documented by: Haloperidol Lactate (Haldol) 2 mg IM Q6HR PRN PRN Reason: Agitation or Acute Psychosis Ibuprofen (Advil) 200 mg PO Q6HR PRN PRN Reason: Pain Levothyroxine Sodium (Synthroid) 25 mcg PO DAILY@0630 [facility] Last Admin: 07/17/19 06:14 Dose: 25 mcg Documented by: Lisinopril (Zestril) 40 mg PO DAILY [facility] Last Admin: 07/17/19 09:54 Dose: 40 mg Documented by: Melatonin (Melatonin) 6 mg PO HS@1900 [facility] Last Admin: 07/16/19 21:17 Dose: 6 mg Documented by: Meloxicam (Mobic) 15 mg PO DAILY [facility] Last Admin: 07/17/19 09:55 Dose: 15 mg Documented by: Naloxone HCl (Narcan) 0.2 mg IV Q2M PRN PRN Reason: Opioid Reversal Olanzapine (Zyprexa) 5 mg PO HS [facility] Last Admin: 07/16/19 21:17 Dose: 5 mg Documented by: Olanzapine (Zyprexa) 2.5 mg PO DAILY [facility] Last Admin: 07/17/19 15:31 Dose: 2.5 mg Documented by: Pantoprazole Sodium (Protonix) 40 mg PO BID [facility] Last Admin: 07/17/19 09:55 Dose: 40 mg Documented by: Sodium Chloride (Sodium Chloride Tab) 1 gm PO QID [facility] Last Admin: 07/17/19 17:34 Dose: 1 gm Documented by: Trazodone HCl (Desyrel) 50 mg PO HS@1900 [facility] Last Admin: 07/16/19 21:17 Dose: 50 mg Documented by: Physical examination: VITAL SIGNS: 97.8, 118, 20, 156/66, 93% on room air GENERAL: [BMI 26.5, laying in bed, anxious. EYES: Pupils equal. Conjunctiva normal. HEENT: External appearance of nose and ears normal, oral cavity grossly normal. NECK: JVD not raised; masses not palpable. HEART: First and second heart sounds are normal; no edema. LUNGS: Respiratory rate normal; clear to auscultation. ABDOMEN: Soft, nontender, liver spleen not palpable, no masses palpable. PSYCH: Does answer questions, speech is rapid.. INVESTIGATIONS, reviewed in the clinical context: White count 7.6 hemoglobin 11.9 sodium 128 potassium 4.5 serum osmolality 276 Previous testing White count 7.1 hemoglobin 12.6 platelets 399 sodium 125 potassium 4.6 and 0.59 TSH at 3.2 UA negative Urine drug screen-positive for opiates and tricyclic antidepressants EKG tracing personally reviewed by me-sinus rhythm Assessment: -Delirious from medications -Hyponatremia -with hypoosmolar Essential hypertension -Primary osteoarthritis -Colonic diverticulosis, asymptomatic -left rotator cuff torn Plan: Patient has been put on no free fluid restriction. Salt tablets. Repeat labs in the morning. Follow with changes in psychiatry medications.
[2019-07-17] MEDS: DESIPRAMINE 25 MG TAB PO SCH (20:28)
[2019-07-17] MEDS: MELATONIN 3 MG TABLET PO SCH (20:28)
[2019-07-17] MEDS: traZODone HCL 50 MG TAB PO SCH (20:29)
[2019-07-17] MEDS: OLANZapine 5 MG TAB PO SCH (20:30)
[2019-07-18] MEDS: LEVOTHYROXINE 25 MCG TAB PO SCH (05:24)
[2019-07-18 06:32] LABS: Potassium 4.4 mmol/L (3.5-5.1)
[2019-07-18 06:33] LABS: African American GFR (CKD) >90 (>60 ml/min/1.73 sqM); Anion Gap 6 mmol/L; Blood Urea Nitrogen 10 mg/dL (7-17); Carbon Dioxide 24 mmol/L (22-30); Chloride 100 mmol/L (98-107); Glucose 87 mg/dL (74-99); Non-African American GFR(CKD) 88 (>60 ml/min/1.73 sqM); Sodium 130 mmol/L (137-145)
[2019-07-18] MEDS: DOCUSATE 100 MG CAP PO SCH (09:24)
[2019-07-18] MEDS: MELOXICAM 7.5 MG TAB PO SCH (09:24)
[2019-07-18] MEDS: GABAPENTIN 300 MG CAP PO SCH (09:24)
[2019-07-18] MEDS: FOLIC ACID 1 MG TAB PO SCH (09:25)
[2019-07-18] MEDS: FERROUS SULFATE 325 MG TAB PO SCH (09:25)
[2019-07-18] MEDS: PANTOPRAZOLE 40 MG TABLET PO SCH (09:25)
[2019-07-18] MEDS: LISINOPRIL 20 MG TAB PO SCH (09:25)
[2019-07-18] MEDS: OLANZapine 2.5 MG TAB PO SCH (09:26)
[2019-07-18] MEDS: SODIUM CHLORIDE TAB 1 GM TAB PO SCH (09:26)
[2019-07-18 13:10] VITALS: BP 126/63; PULSE 80; RESP 20; TEMP 97.8
--- NOTE | 2019-07-18 13:48 | P.PN ---
Progress Note - Text Progress Note Date: 07/18/19 Psychiatric progress note: Interval History: Patient was seen for psychiatric follow-up today for delirium with a history of schizophrenia. Patient did not receive any Haldol IM prn meds last night once again and appeared to be more cooperative. At the bedside patient was eating her lunch calmly and was directable and agreeable to speak to junior technical writer. She initially was suspicious of who junior technical writer was and said "are you a therapist". She was mildly more organized in her thought process and content and spoke about speaking to her sons over the phone. She is claiming that she did take her medications. Patient was not endorsing any paranoia or delusions today. Patient continues to have some minor lapses in her attention span during the interview. She claimed that she did sleep well last night and has a fair appetite. At this time patient denies any suicidal or homical ideations, intent or plan. Patient denies any auditory, visual hallucinations. Patient has been taking her medications. Mental Status Exam: General Appearance: Patient appears to be thin and frail, older than stated age is alert, more directable today and improving attention span. Patient appears to have fair hygiene and grooming wearing hospital gown with improving eye contact. Behavior: Patient is calmly lying in bed without any agitated behavior. More directable today. Speech: Patient's speech is fluent and nonpressured. Mood/Affect: Patient reports their mood is "good", affect is incongruent Suicidality/Homicidality: Patient denies having any suicidal or homicidal ideation intent or plan. Perceptions: Patient denies any visual hallucinations and denies any auditory hallucinations Though content/process: No delusions today or paranoia. Patient was more logical however was tangential. improving attention span Memory and concentration: AOX2, cannot spell "WORLD" backwards. Improving attention span, mildly improving. Judgment and insight: chronically limited. Assessment Delirium likely etiology toxic/metabolic History of schizophrenia Plan: -At this time patient DOES NOT meet criteria for inpatient psychiatric admission. -Patient DOES NOT have decision making capacity at this time and is unable to reason through and communicate/appreciate the risks, benefits and alternatives to treatment. -Delirium precautions recommended with patient including - avoiding use of narcotics and FOOD SERVICE SALES REPRESENTATIVES sedatives, limit anticholinergic medications when possible, frequent re-orientation, minimize use of restraints, open window shades during the day and close them at night -Continue with treatment of patient's hyponatremia and underlying medical conditions to improve patient's cognition and mental status. Patient sodium today was 130 which is an improvement. -Would recommend the following medication changes/additions: Continue holding off on Xanax or any benzodiazepines as this will cause more confusion and worsening of possible delirium. Continue with Zyprexa 5 mg daily at bedtime for psychosis/insomnia +2.5 mg daily. Haldol IM when necessary for agitation. Can continue with desipramine and trazodone melatonin as written. -Lawn Maintenance Worker attempted to speak with patient's family and Vikki patient's therapist however was not able to reach them at the number provided. At this time patient is being transferred to a care home. -Psychiatry signing off. Please contact with any questions.
--- NOTE | 2019-07-18 14:19 | P.DS ---
Providers Date of admission: 07/16/19 05:55 Expected date of discharge: 07/18/19 Attending physician: Nik Junior Consults: 07/16/19 05:56 Consult Physician Routine Consulting Provider: Psychiatry - [facility] Psychiatry Consult Reason/Comments: Altered mental status in schizophrenia patient Do you want consulting provider notified?: Yes Primary care physician: Shayne Henley [facility] Course: Chief Complaint: Delusions, hallucinations History of presenting complaint: This is a 79-year-old patient of visiting physicians Dr. Henley. Chronic stable medical conditions include hypertension, osteoarthritis, colonic diverticulosis. Has history of schizophrenia . was brought into the ER by family members for apparently having hallucinations and delusions at home. Admitted for the same. Saw the patient this morning. Patient denies any fever and chills. Appears rather delirious. Complains of pain all over. Since that family doctor's not getting any more pain medication. She was found to be resting comfortably when I saw the patient. No change in bowel habit. Does not like the food given where she lives. By caregiver. She wants home cooked meals. Sore anxious. Denies any voices and seeing things the present time. Admitted with delirium. Hyponatremia. Medication adjusted by psychiatry. Salt tablets were added. Started on fluid restriction. Per psychiatry-Xanax was discontinued, started on Zyprexa. Also Loxitane and Abilify were discontinued Today-eating better. Less delirious. Cleared by psychiatry. Sodium did come up to 130. Discussed with nurse. And the hospice social worker. Coronavirus PCR being required by receiving ECF to be negative. This was ordered Discussion and discharge planning more than 35 minutes Consultation: Dr. parker from psychiatry Physical examination: VITAL SIGNS: 97.8, 80, 20, 126/63, 96% on room air GENERAL: laying in bed, less anxious EYES: Pupils equal. Conjunctiva normal. HEENT: External appearance of nose and ears normal, oral cavity grossly normal. NECK: JVD not raised; masses not palpable. HEART: First and second heart sounds are normal; no edema. LUNGS: Respiratory rate normal; clear to auscultation. ABDOMEN: Soft, nontender, liver spleen not palpable, no masses palpable. PSYCH: Does answer questions, speech is less rapid INVESTIGATIONS, reviewed in the clinical context: Sodium 1:30 creatinine 0.56 [id number] Previous testing White count 7.1 hemoglobin 12.6 platelets 399 sodium 125 potassium 4.6 and 0.59 TSH at 3.2 UA negative Urine drug screen-positive for opiates and tricyclic antidepressants EKG tracing personally reviewed by me-sinus rhythm serum osmolality 276 Assessment: -Delirious from medications -Hyponatremia -with hypoosmolar Essential hypertension -Primary osteoarthritis -Colonic diverticulosis, asymptomatic -left rotator cuff torn Disposition: [facility] Patient Condition at Discharge: Stable Plan - Discharge Summary New Discharge Prescriptions: New Mag Hydrox/Al Hydrox/Simeth [Maalox] 15 ml PO Q6HR PRN ml PRN Reason: Indigestion Gabapentin [Neurontin] 300 mg PO QID cap Sennosides-Docusate Sodium [Senokot-S] 2 tab PO HS #1 tablet Sodium Chloride Tab 1 gm PO QID #15 tab Lisinopril/Hydrochlorothiazide [Zestoretic 20-12.5] 1 tab PO BID #1 tab OLANZapine [ZyPREXA] 2.5 mg PO DAILY tab OLANZapine [ZyPREXA] 5 mg PO HS tab Continue Cranberry(Unknown Dose) 1 tab PO DAILY traZODone HCL 50 mg PO HS@1900 Meloxicam [Mobic] 15 mg PO DAILY Ferrous Sulfate [Iron (65 MG Elemental)] 325 mg PO Q48H Ergocalciferol [Vitamin D2 (DRISDOL)] 50,000 unit PO WE Levothyroxine Sodium 25 mcg PO DAILY Folic Acid 1 mg PO DAILY Desipramine HCl 25 mg PO HS@1900 Melatonin 6 mg PO HS@1900 Discontinued Lisinopril [Zestril] 10 mg PO DAILY Docusate [Colace] 100 mg PO BID Gabapentin [Neurontin] 100 mg PO BID@0800,1900 ARIPiprazole [Abilify] 15 mg PO DAILY ALPRAZolam [Xanax] 0.25 mg PO DAILY Discharge Medication List Cranberry(Unknown Dose) 1 tab PO DAILY 07/16/19 [History] Desipramine HCl 25 mg PO HS@1900 07/16/19 [History] Ergocalciferol [Vitamin D2 (DRISDOL)] 50,000 unit PO WE 07/16/19 [History] Ferrous Sulfate [Iron (65 MG Elemental)] 325 mg PO Q48H 07/16/19 [History] Folic Acid 1 mg PO DAILY 07/16/19 [History] Levothyroxine Sodium 25 mcg PO DAILY 07/16/19 [History] Melatonin 6 mg PO HS@189907/16/19 [History] Meloxicam [Mobic] 15 mg PO DAILY 07/16/19 [History] traZODone HCL 50 mg PO HS@1900 07/16/19 [History] Gabapentin [Neurontin] 300 mg PO QID cap 07/18/19 [Rx] Lisinopril/Hydrochlorothiazide [Zestoretic 20-12.5] 1 tab PO BID #1 tab 07/18/19 [Rx] Mag Hydrox/Al Hydrox/Simeth [Maalox] 15 ml PO Q6HR PRN ml 07/18/19 [Rx] OLANZapine [ZyPREXA] 2.5 mg PO DAILY tab 07/18/19 [Rx] OLANZapine [ZyPREXA] 5 mg PO HS tab 07/18/19 [Rx] Sennosides-Docusate Sodium [Senokot-S] 2 tab PO HS #1 tablet 07/18/19 [Rx] Sodium Chloride Tab 1 gm PO QID #15 tab 07/18/19 [Rx] Follow up Appointment(s)/Referral(s): Psychiatry, [Other] - 1 [facility], [NON-STAFF] - Shayne Henley MD [Primary Care Provider] - As Needed Activity/Diet/Wound Care/Special Instructions: Fluid restrict-2000 mL a day BMP-5 days
--- NOTE | 2019-07-21 16:51 | CDI ---
Documentation Clarification Form Date: 07/21/2019 04:35:14 PM From: Carmen Manely RN, CCDS Admit Date: 07/16/2019 05:55:00 AM Patient Name: Dolly Madrigal I Visit Number: [id number] Discharge Date: 07/18/2019 03:25:00 PM ATTENTION: The Clinical Documentation Specialists (CDI) and [facility] Coding Staff appreciate your assistance in clarifying documentation. Please respond to the clarification below the line at the bottom and electronically sign. The CDI & [facility] Coding staff will review the response and follow-up if needed. Please note: Queries are made part of the Legal Health Record. If you have any questions, please contact the author of this message via ITS. Dr. Nik Junior Delirium is documented in the H&P, Consults and progress notes and requires further specificity. History/Risk Factors: HTN, Bipolar Schizophrenia Clinical Indicators: 07/15-07/17 Psych Consult and Progress Notes: "Delirium likely etiology toxic/metabolic. 07/15 Psych Consult: "had hallucinations and delusions at home and was a limited historian in the ER. Patient's UDS was positive for opiates and TCAs and sodium was noted to be at 125 and patient was admitted for altered mental status and hyponatremia." 07/17 Psych Progress Note: "Would recommend the following medication changes/additions: Continue holding off on Xanax or any benzodiazepines as this will cause more confusion and worsening of possible delirium." 07/15 H&P: "Delirious from medications. Hyponatremia may need further investigations." Labs: NA: 125/128/130, UDS + opiates, + TCA T reatment: 07/17 Psych recommendations: Delirium precautions recommended with patient including - avoiding use of narcotics and ELEVATOR MECHANIC APPRENTICE sedatives, limit anticholinergic medications when possible, frequent re-orientation, minimize use of restraints, open window shades during the day and close them at night -Continue with treatment of patient's hyponatremia and underlying medical conditions to improve patient's cognition and mental status. -Would recommend the following medication changes/additions: Continue holding off on Xanax or any benzodiazepines as this will cause more confusion and worsening of possible delirium." Xanax, Ability, Norpramin, D/C Neurontin 300 mg PO QID Zyprexa 5 mg PO Q HS Desyrel 50 mg PO Q HS In your professional opinion, please clarify the etiology of the Altered Mental Status, if known. Metabolic Encephalopathy (specify underlying medical illness) Toxic Encephalopathy (specify underlying medical illness) Other condition (please specify) Unable to determine (Last Revision: July 2017) As documented in discharge summary: Delirium from medications MTDD
== END 2019-07-18 15:25 | DRG 641 ==
LOC: SUPCPDRO 02:25 → EC 02:25 → 5NMEDONC 05:55
PROVIDERS: ADMIT Hospitalist; ATTEND Hospitalist
DX: E87.1 Hypo-osmolality and hyponatremia (principal); F22 Delusional disorders; T50.905A Adverse effect of unspecified drugs, medicaments and biological substances, initial encounter; F25.0 Schizoaffective disorder, bipolar type; F41.9 Anxiety disorder, unspecified; H91.90 Unspecified hearing loss, unspecified ear; I10 Essential (primary) hypertension; K57.30 Diverticulosis of large intestine without perforation or abscess without bleeding; M19.91 Primary osteoarthritis, unspecified site; M75.100 Unspecified rotator cuff tear or rupture of unspecified shoulder, not specified as traumatic; Z79.1 Long term (current) use of non-steroidal anti-inflammatories (NSAID); Z79.890 Hormone replacement therapy; Z79.899 Other long term (current) drug therapy; Z82.49 Family history of ischemic heart disease and other diseases of the circulatory system; Z97.4 Presence of external hearing-aid; Z88.2 Allergy status to sulfonamides; Z88.8 Allergy status to other drugs, medicaments and biological substances; Z20.828 Contact with and (suspected) exposure to other viral communicable diseases
CPT/HCPCS: 36415; 80048; 80053; 80306; 81003; 82075; 83930; 84443; 85025; 87635; 93005; 99285